=== PATIENT | male | born 1945 | race Caucasian/White ===

== ENCOUNTER 2020-04-08 10:13 | Outpatient (CLI) | payer MEDICARE, OTHER, SELFPAY ==
--- NOTE | 2020-04-08 10:22 | MR_ITS ---
WS: [id number] MRI LUMBAR SPINE NONCONTRAST HISTORY: BACK PAIN LUMBAR with radiculopathy, peripheral NEUROPATHY COMPARISON: None available. TECHNIQUE: Sagittal and axial multisequence imaging is submitted. Mild straightening of the normal lumbar lordosis. Very slight LEFT convex curvature the lumbar spine. Mild disc desiccation without fractures. There is a small amount of reactive marrow edema in the endp lates of L5 and S1 on the LEFT. Conus terminates normally at L1-2 disc level. L1-L2: Mild bilateral facet joint arthritis. Mild deformity of the lateral thecal sac. Mild foraminal stenosis. L2-L3: Mild facet and ligamentum flavum arthritis with mild foraminal narrowing. L3-L4: Annular disc bulging and osteophytic ridging with facet and ligamentum flavum arthritis. Mild central and subarticular recess encroachment. There is also mild bilateral foraminal stenosis. L4-L5: Mild annular disc bulging. Mild ligamentum flavum arthritis and facet arthropathy. There is in crease fluid in the facet joints and mild bilateral foraminal narrowing. L5-S1: Mild annular disc bulging. Osteophytes and bulging disc extending into the LEFT foramen. There is moderate LEFT foraminal stenosis. There is mild encroachment upon the LEFT subarticular recess. Bilateral renal cysts. MR/MR lumbar spine wo con* [id number] IMPRESSION: 1. Moderate LEFT foraminal stenosis due to disc osteophyte disease and mild LE FT subarticular recess stenosis at L5-S1. 2. Mild bilateral foraminal stenosis from L1-2 to L4-5. 3. No significant central stenosis.
== END 2020-04-08 10:14 | disposition home or self-care (01) ==
PROVIDERS: PCP Electrodiagnostic Medicine; Visit Provider Electrodiagnostic Medicine
DX: M54.16 Radiculopathy, lumbar region (principal); G62.9 Polyneuropathy, unspecified; I65.23 Occlusion and stenosis of bilateral carotid arteries; M48.061 Spinal stenosis, lumbar region without neurogenic claudication; M25.78 Osteophyte, vertebrae
CPT/HCPCS: 72148

== ENCOUNTER 2020-07-20 09:25 | Outpatient (RCR) | payer MEDICARE, OTHER, SELFPAY | END 2020-08-03 23:59 | disposition home or self-care (01) | LOC: SPT 09:25 | PROVIDERS: PCP Electrodiagnostic Medicine; Referring Provider Physician Assistant; Visit Provider Physician Assistant | DX: M54.16 Radiculopathy, lumbar region (principal); M51.36 Other intervertebral disc degeneration, lumbar region; M51.26 Other intervertebral disc displacement, lumbar region; M48.061 Spinal stenosis, lumbar region without neurogenic claudication; M47.816 Spondylosis without myelopathy or radiculopathy, lumbar region | CPT/HCPCS: 97110; 97162 ==

== ENCOUNTER 2020-08-04 06:00 | Outpatient (RCR) | payer MEDICARE, OTHER, SELFPAY | END 2020-09-03 23:59 | disposition home or self-care (01) | LOC: SPT 06:00 | PROVIDERS: PCP Electrodiagnostic Medicine; Referring Provider Physician Assistant; Visit Provider Physician Assistant | DX: M54.16 Radiculopathy, lumbar region (principal); M51.36 Other intervertebral disc degeneration, lumbar region; M51.26 Other intervertebral disc displacement, lumbar region; M48.061 Spinal stenosis, lumbar region without neurogenic claudication; M47.816 Spondylosis without myelopathy or radiculopathy, lumbar region | CPT/HCPCS: 97110 ==

== ENCOUNTER 2020-12-06 13:45 | Outpatient (CLI) | payer MEDICARE, OTHER, SELFPAY ==
--- NOTE | 2020-12-06 14:15 | USCV_ITS ---
Chinmay Hernandes Age: 75 Gender: M : 1945 Exam Date: 12/06/2020 13:57 Ordering Phys: Kam Mayfield MD ([email or web address]) Technologist: Yifan Ayoub [place] [facility] [place]: CHEST PAIN BP: 135 / 82 HR: 58 Rhythm: Sinus Technical Quality: Fair MEASUREMENTS (Male / Female) Normal Values 2D ECHO LV Diastolic Diameter PLAX 4.0 cm 4.2 - 5.9 / 3.9 - 5.3 cm LV Systolic Diameter PLAX 2.9 cm IVS Diastolic Thickness 1.8 cm 0.6 - 1.0 / 0.6 - 0.9 cm IVS Systolic Thickness 1.7 cm LVPW Diastolic Thickness 1.4 cm 0.6 - 1.0 / 0.6 - 0.9 cm LVPW Systolic Thickness 2.4 cm LVOT Diameter 2.0 cm LV Ejection Fraction 2D Teich 53.8 % LV Ejection Fraction MOD 2C 70.0 % LV Ejection Fraction 2C AL 74.6 % LA Diameter 3.4 cm LA Width 4.1 cm LA Height 4.2 cm RA Width 3.2 cm RA Height 3.7 cm Aorta at Sinotubular Diameter 2.7 cm M-MODE LV Diastolic Diameter MM 4.0 cm 4.2 - 5.9 / 3.9 - 5.3 cm LV Systolic Diameter MM 2.5 cm LV Ejection Fraction MM Teich 66.5 % IVS Diastolic Thickness MM 1.1 cm 0.6 - 1.0 / 0.6 - 0.9 cm IVS Systolic Thickness MM 1.7 cm LVPW Diastolic Thickness MM 1.4 cm 0.6 - 1.0 / 0.6 - 0.9 cm LVPW Systolic Thickness MM 2.3 cm Aortic Annulus Diameter 3.2 cm LA Ao Ratio MM 1.1 MV E Point Septal Separation 0.5 cm DOPPLER AV Peak Velocity 104.0 cm/s LVOT Peak Velocity 79.0 cm/s AV Area Cont Eq vti 2.3 cm squared AV Area Cont Eq pk 2.5 cm squared MV Area PHT 4.9 cm squared Mitral E to A Ratio 0.6 MV E' Velocity 27.5 cm/s Mitral E to MV E' Ratio 5.9 Mitral E to LV E' Lateral Ratio 7.7 Mitral E to LV E' Septal Ratio 4.9 TR Peak Velocity 188.0 cm/s TR Peak Gradient 14.1 mmHg Right Atrial Pressure 3.0 mmHg Pulmonary Artery Systolic Pressu 17.1 mmHg PV Peak Velocity 77.0 cm/s RV Acceleration Time 0.1 s RV Ejection Time 0.3 s RV AcT/ET 0.3 FINDINGS Left Ventricle Mild diffuse hypokinesia of the lateral wall and inferolateral wall segments. LV ejection fraction around 50 to 55% Right Ventricle The right ventricle is normal in size and function. Right Atrium The right atrium is normal in size. Left Atrium The left atrium is normal in size. Mitral Valve Thickened mitral valve. Trace mitral valve regurgitation. Aortic Valve No gross abnormalities noted Tricuspid Valve Trace tricuspid valve regurgitation. Pulmonic Valve Pulmonic valve not well visualized. Pericardium Normal pericardium without effusion. Aorta Normal ascending aorta dimension. CONCLUSIONS Normal LV size with borderline low ejection fraction of 50 to 55%. Wall motion normalities as mentioned above. Trace of mitral and tricuspid regurgitation. Thickened mitral valve. There is no pericardial effusion. There are no intracardiac masses. Estimated pulmonary artery peak systolic pressure of 17 mmHg. Compared to the previous study from 02/15/2015, the wall motion normality in the inferolateral wall appears to be new Dr Kam Mayfield MD FAC (Electronically Signed) Final Date: 07 December 2020 10:54 S
== END 2020-12-06 13:46 | disposition home or self-care (01) ==
LOC: US 13:45
PROVIDERS: PCP Electrodiagnostic Medicine; Visit Provider Internal Medicine Cardiovascular Disease
DX: R07.89 Other chest pain (principal); R06.00 Dyspnea, unspecified; I08.3 Combined rheumatic disorders of mitral, aortic and tricuspid valves
CPT/HCPCS: 93306

== ENCOUNTER 2020-12-08 07:26 | Outpatient (CLI) | payer MEDICARE, OTHER, SELFPAY ==
[2020-12-08 07:30] VITALS: BMI 25.5
--- NOTE | 2020-12-08 07:30 | NMCV_ITS ---
NM danny perf SPECT r/s* [id number] Chinmay Hernandes Age: 75 Gender: M : 1945 Exam Date: 12/08/2020 08:20 Ordering Phys: Kam Mayfield MD ([email or web address]) Technologist: SEN Duran Exam Location: [facility] Indications: CHEST PAIN STRESS TEST Please see separate stress test report in [facility] for full findings IMAGE PROTOCOL Lexiscan Radiopharmaceutical Dose (mCi) Administration Site Administered by Rest: Tc-99m 10.9 IV SEN Aldana Sestamibi Stress:Tc-99m 32.7 IV SEN Duran Sestamicathryn Rest: 08-Dec-2020 60 Discovery 630 Stress: 08-Dec-2020 30 Discovery 630 0.4mg Lexiscan. Images obtained in supine and prone position. SPECT RESULTS Technical Quality: Excellent Raw Data Analysis: Normal Image Corrections: No attenuation or motion correction applied Summed Stress Score: 3 Summed Rest Score: 6 Summed Difference Score: 1 PERFUSION FINDINGS Moderate area of decreased aseptic was noted in the basal and mid inferoseptal, mid anteroseptal and apical inferior wall regions. Subtle area of reversibility was noted in the mid inferoseptal region. FUNCTIONAL RESULTS (calculated via Gated SPECT) Stress Image LV EF (%): 74 Stress EDV (mL):105 TID: 0.76 Stress ESV (mL):27 FUNCTIONAL FINDINGS: Segmental wall motion analysis revealing no gross wall motion normalities. IMPRESSIONS 1. Myocardial perfusion may revealing a moderate area of persistent decreases uptake in the anteroseptal and inferoseptal regions with a subtle area of reversibility, suggestive of myocardial scarring in the distribution of the left and descending artery/right coronary artery with a subtle area of possible gonzalo-infarction ischemia in the distribution of the right coronary artery. 2. Normal LV ejection fraction of 74%. 3. LV wall motion analysis revealing no gross wall motion normalities. 4. Normal LV volume. No similar previous studies are available for comparison Dr Kam Mayfield MD [facility] (Electronically Signed) Final Date: 08 December 2020 18:01 S
--- NOTE | 2020-12-08 07:30 | ECG_ITS ---
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 Interpretive Statements NAME OF STUDY: LEXISCAN SESTAMIBI STRESS TEST INDICATION: Chest Pain PROCEDURE: At the baseline, the EKG revealed sinus bradycardia with a left bundle branch block pattern. The baseline blood pressure was 133/78 mm Hg with a heart rate of 54 beats/min. Lexiscan was infused over a period of 20 seconds. A total of 0.4 milligrams of Lexiscan was infused. The stress phase was continued for a total of 5 minutes. Heart rate at the end of the stress phase was 66 with a blood pressure 150/72. The EKG at the peak infusion is uninterpretable due to baseline changes Sestamibi was injected 20 seconds after the Lexiscan infusion. Blood pressure at the end of the recovery phase was 146/62 with a heart rate of 63 per minute. CONCLUSION: 1. The EKG response to Lexiscan infusion is uninterpretable due to the baseline changes 2. No LexiScan induced chest pain or cardiac arrhythmia 3. Normal blood pressure and heart rate response 4. Sestamibi/sestamibi perfusion scan pending; see separate report. Electronically Signed On 12-15-2020 9:50:24 [employer] by Kam Mayfield M.D. [id number]
[2020-12-08 09:22] VITALS: BP 138/69; PULSE 65
[2020-12-08] MEDS: regadenoson 0.4 Mg/5 ml Syringe IVP (09:23)
== END 2020-12-08 07:27 | disposition home or self-care (01) ==
PROVIDERS: PCP Electrodiagnostic Medicine; Visit Provider Internal Medicine Cardiovascular Disease
DX: R07.9 Chest pain, unspecified (principal)
CPT/HCPCS: 78452; 93017; A9500; J2785

== ENCOUNTER 2021-11-28 12:55 | Outpatient (CLI) | payer MEDICARE, OTHER, SELFPAY ==
--- NOTE | 2021-11-28 13:09 | XR_ITS ---
WS: [id number] Left hip, 2 views, 11/28/2021 Clinical Data: L CHRONIC HIP PAIN/BURSITIS HIPS, BILATERAL Comparison: None. Findings: No fractures or dislocations are seen. The hip joint is intact. The soft tissues are not remarkable. The adjacent pelvis is normal. XR/XR hip LT 2-3V wo/w pel* [id number] Impression: Negative left hip. Tonnis classification: grade 0: normal radiographs
== END 2021-11-28 12:56 | disposition home or self-care (01) ==
LOC: RAD 12:59
PROVIDERS: PCP Electrodiagnostic Medicine; Visit Provider Electrodiagnostic Medicine
DX: M25.552 Pain in left hip (principal); M71.9 Bursopathy, unspecified
CPT/HCPCS: 73502

== ENCOUNTER → 2022-01-15 09:47 | Outpatient (BNVA) | payer MEDICARE, OTHER, SELFPAY | PROVIDERS: PCP Electrodiagnostic Medicine; Visit Provider Internal Medicine Cardiovascular Disease | DX: R07.89 Other chest pain (principal); E78.5 Hyperlipidemia, unspecified; I44.7 Left bundle-branch block, unspecified; I10 Essential (primary) hypertension; R06.00 Dyspnea, unspecified | CPT/HCPCS: 99214 ==

== ENCOUNTER 2022-01-18 09:38 | Emergency (ER) | payer MEDICARE, OTHER, SELFPAY ==
[2022-01-18 09:54] VITALS: BP 123/65; PULSE 59; RESP 14; TEMP 36.9; O2SAT 98; BMI 26.2
[2022-01-18 11:03] LABS: Add Urine Microscopic? NO; Charge for UA Resulting for Rev
--- NOTE | 2022-01-18 11:03 | CTR_ITS ---
PROCEDURE INFORMATION: Exam: CT Abdomen And Pelvis With Contrast Exam date and time: 01/18/2022 12:08 PM Age: 76 years old Clinical indication: Abdominal pain; Prior surgery; Surgery type: Gb; Additional info: HX of chrohns, abd pain, right flank pain TECHNIQUE: Imaging protocol: Computed tomography of the abdomen and pelvis with contrast. Radiation optimization: All CT scans at this facility use at least one of these dose optimization techniques: automated exposure control; mA and/or kV adjustment per patient size (includes targeted exams where dose is matched to clinical indication); or iterative reconstruction. Contrast material: OMNI 300; Contrast volume: 95 ml; Contrast route: INTRAVENOUS (IV); COMPARISON: CT Abdomen/Pelvis Renal [id number] 01/01/2017 12:33 AM RADIATION DOSE METRICS: Total DLP (mGy-cm): 2354 FINDINGS: Lungs: Interstitial prominence and trace dependent airspace disease. 3mm left lower lobe nodule (series 3: Image 11). For patients at low risk (minimal or absent history of smoking and of other known risk factors), no routine follow-up is indicated. For patients at high risk (history of smoking or of other known risk factors), consider optional CT Chest at 12 months. (Reference: Romeo). Liver: Fatty infiltration of the liver. Gallbladder and bile ducts: Status post cholecystectomy. Intrahepatic biliary ductal dilatation along with common and apparent distal obstruction. MRCP or ERCP can be performed for improved characterization, if clinically indicated. Pancreas: Pancreatic atrophy. Spleen: No splenomegaly. Adrenal glands: Unremarkable adrenals. Kidneys and ureters: Bilateral renal cysts, including a 1.5 cm cyst in the superomedial left kidney. No hydronephrosis. Stomach and bowel: Wall thickening in the nondistended stomach. Diffuse wall thickening of rectum and colon, in a pattern of pancolitis. Appendix: No acute appendicitis. Intraperitoneal space: No significant free fluid. Vasculature: Vascular calcification. No abdominal aortic aneurysm. Lymph nodes: Subcentimeter lymph nodes. Urinary bladder: Bladder dilatation with mildly lobulated morphology. Reproductive: Unremarkable as visualized. Bones/joints: Disc bulging, mild degenerative change, and Schmorl's nodes. Soft tissues: Unremarkable. CT/CT abdomen pelvis w con* [id number] IMPRESSION: 1. Diffuse wall thickening of rectum and colon, in a pattern of pancolitis. 2. Intrahepatic biliary ductal dilatation along with common and apparent distal obstruction. MRCP or ERCP can be performed for improved characterization, if clinically indicated. 3. Wall thickening in the nondistended stomach. 4. Additional findings as described above. COMMENTS: Consistent with the [employer]'s Incidental Findings Committee white paper (J Am Jeffery Radiol 2018): Any incidental renal lesion less than 1 cm or classified as too small to characterize, or any incidental cystic renal lesion characterized as simple-appearing, is likely benign. No follow-up imaging is recommended for these lesions per consensus recommendations based on imaging criteria.
--- NOTE | 2022-01-18 11:03 | ED_ITS ---
HPI - Male Genitourinary General: Chief complaint: Urogenital-Male Stated complaint: Low back pain, pos kidney stone Time Seen by Provider: 01/18/22 09:54 History of Present Illness: Complains about right upper flank pain and pain across his abdomen been going on last couple days. Patient recently treated for UTI. Patient also history of Crohn's disease. Patient not in pain presently patient also history of low back problems and stenosis. Patient also has BPH Associated symptoms: Deny nausea or vomiting Review of Systems Const: Denies: fever(s), chills or body aches Eyes: Denies: eye discomfort ENMT: Denies: throat pain Card: Denies: chest pain Resp: Denies: dyspnea GI: Reports: abdominal pain; Denies: nausea or vomiting : Reports: flank pain Skin/Breast: Denies: rash Neuro: Denies: headache(s) Psych: Denies: depression or suicidal ideation PFSH ED PFSH: Medical History GERD (gastroesophageal reflux disease) Hx of Crohn's disease Osteopenia Vitamin D deficiency Surgical History History of cholecystectomy History of neck surgery Family History Father CAD (coronary artery disease) Dementia Stroke Mother CAD (coronary artery disease) Family/Other Cancer Denies family history of Diabetes Clotting disorder Chronic kidney disease (CKD) Suicide Anesthesia complication Bleeding disorder Lung disease Social History Smoking and tobacco status: never smoked Alcohol intake: never Physical Exam Const: COMMON NORMALS: no acute distress, patient oriented x3 and alert HENMT: COMMON NORMALS: normocephalic and external ears normal HEAD & SCALP: normocephalic EXTERNAL EAR: Yes external ears normal Eye: COMMON NORMALS: EOMs intact bilaterally Neck/C-Spine: COMMON NORMALS: no JVD Resp: COMMON NORMALS: normal respiratory effort and No use of accessory muscles Cardio: COMMON NORMALS: no JVD GI: INSPECTION: Yes normal to inspection Extremity: COMMON NORMALS: normal to inspection and full ROM Neuro: COMMON NORMALS: patient oriented x3 SENSORIUM/ORIENTATION: Yes alert Psych: COMMON NORMALS: mental status grossly normal Skin: COMMON NORMALS: no rashes or lesions noted GENERAL SKIN EXAM: no rashes or lesions noted Course Vital Signs: Vital signs: Vital Signs Temperature 98.5 F 01/18/22 09:54 Pulse Rate 59 L 01/18/22 09:54 Respiratory Rate 14 01/18/22 09:54 Blood Pressure 123/65 01/18/22 09:54 Pulse Oximetry 98 01/18/22 09:54 MDM - Male Medical Decision Making Patient presents with right upper flank pain and mild diffuse abdominal pain that occurred last night patient is pain-free presently. Labs and CT were ordered. Labs are stable CT shows possible pancolitis and also possible blocka ge common bile duct. I discussed case with Dr. Tirado and Dr. Harvey, Dr. Nielsen is recommended patient follow-up outpatient with primary care provider for a possible order an outpatient MRCP. And place patient on antibiotics for pancolitis. Patient has history of Crohn's and I will placed on steroids. Lab Data : 01/18/22 11:03 01/18/22 11:03 Radiology Impressions Abdomen/Pelvis CT 01/18/22 11:03 IMPRESSION: 1. Diffuse wall thickening of rectum and colon, in a pattern of pancolitis. 2. Intrahepatic biliary ductal dilatation along with common and apparent distal obstruction. MRCP or ERCP can be performed for improved characterization, if clinically indicated. 3. Wall thickening in the nondistended stomach. 4. Additional findings as described above. COMMENTS: Consistent with the [employer]'s Incidental Findings Committee white paper (J Am Jeffery Radiol 2018): Any incidental renal lesion less than 1 cm or classified as too small to characterize, or any incidental cystic renal lesion characterized as simple-appearing, is likely benign. No follow-up imaging is recommended for these lesions per consensus recommendations based on imaging criteria. Laboratory Results WBC 6.9 10^3/uL (4.0-10.0) 01/18/22 11:03 RBC 4.48 10^6/uL (4.1-5.3) 01/18/22 11:03 Hgb 13.9 g/dL (11.7-16.6) 01/18/22 11:03 Hct 41.5 % (42.0-52.0) L 01/18/22 11:03 MCV 92.6 fl (80-94) 01/18/22 11:03 MCH 31.0 pg (28.0-34.0) 01/18/22 11:03 MCHC 33.5 g/dL (30.0-36.0) 01/18/22 11:03 RDW 13.1 % (12.1-15.1) 01/18/22 11:03 Plt Count 296 10^3/cmm (130-400) 01/18/22 11:03 MPV 9.5 fL (7.4-10.4) 01/18/22 11:03 Neut % (Auto) 54.4 % 01/18/22 11:03 Lymph % (Auto) 24.9 % 01/18/22 11:03 [place] % (Auto) 13.3 % 01/18/22 11:03 Eos % (Auto) 5.6 % 01/18/22 11:03 Baso % (Auto) 1.2 % 01/18/22 11:03 Neut # (Auto) 3.76 10^3/uL (1.8-7.7) 01/18/22 11:03 Lymph # (Auto) 1.7 10^3/uL (0.8-4.8) 01/18/22 11:03 [place] # (Auto) 0.9 10^3/uL (0.2-0.9) 01/18/22 11:03 Eos # (Auto) 0.4 10^3/uL (0.0-0.8) 01/18/22 11:03 Baso # (Auto) 0.1 10^3/uL (0.0-0.1) 01/18/22 11:03 Nucleated RBC % (auto) 0 % 01/18/22 11:03 Nucleated RBCs # 0.0 /100WBC 01/18/22 11:03 Sodium 137 mmol/L (136-145) 01/18/22 11:03 Potassium 4.0 mmol/L (3.5-5.1) 01/18/22 11:03 Chloride 103 mmol/L (98-107) 01/18/22 11:03 Carbon Dioxide 25 mmol/L (22-29) 01/18/22 11:03 Anion Gap 13.0 (5-19) 01/18/22 11:03 BUN 14 mg/dL (8-23) 01/18/22 11:03 Creatinine 0.9 mg/dL (0.7-1.2) 01/18/22 11:03 GFR Calculation Not Reportable 01/18/22 11:03 Glucose 105 mg/dL (65-115) 01/18/22 11:03 Calculated Osmolality 285 mOsm/kg (285-295) 01/18/22 11:03 Calcium 9.5 mg/dL (8.5-10.5) 01/18/22 11:03 Total Bilirubin 0.4 mg/dL (0.15-1.2) 01/18/22 11:03 AST 26 U/L (0-40) 01/18/22 11:03 ALT 19 U/L (0-41) 01/18/22 11:03 Alkaline Phosphatase 64 IU/L (40-130) 01/18/22 11:03 Total Protein 7.2 g/dL (6.6-8.7) 01/18/22 11:03 Albumin 4.4 g/dL (3.5-5.2) 01/18/22 11:03 Globulin 2.8 g/dL (1.3-4.6) 01/18/22 11:03 Lipase 20 U/L (13-60) 01/18/22 11:03 Urine Color Straw (Yellow) 01/18/22 10:35 Urine Appearance Clear (CLEAR) 01/18/22 10:35 Urine pH 5 (5-7) 01/18/22 10:35 Ur Specific [place] 1.010 (1.005-1.030) 01/18/22 10:35 Urine Protein Neg (Negative) 01/18/22 10:35 Urine Glucose (UA) Norm (Normal) 01/18/22 10:35 Urine Ketones Negative (Negative) 01/18/22 10:35 Urine Blood Neg (Negative) 01/18/22 10:35 Urine Nitrate Negative (Negative) 01/18/22 10:35 Urine Bilirubin Neg (Negative) 01/18/22 10:35 Urine Urobilinogen Norm mg/dL (Negative) 01/18/22 10:35 Ur Leukocyte Esterase Negative (Negative) 01/18/22 10:35 Discharge Plan Discharge Condition: Stable Prescriptions: No Action cholecalciferol (vitamin D3) 1,250 mcg (50,000 unit) capsule 50,000 unit PO .QWeekly 0RF isosorbide mononitrate 30 mg tablet extended release 24 hr 30 mg PO DAILY 30 Days Qty: 30 5RF finasteride 5 mg tablet 5 mg PO DAILY 0RF metoprolol succinate 25 mg tablet extended release 24 hr 25 mg PO DAILY 0RF acetaminophen [Tylenol Arthritis Pain] 650 mg tablet extended release 1,300 mg PO Q12H 0RF omeprazole 20 mg capsule,delayed release(DR/EC) 20 mg PO DAILY 0RF nitroglycerin 0.4 mg tablet, sublingual 0.4 mg sublingual Q5M PRN (Reason: chest pain) 30 Days Qty: 30 3RF Rx Instructions: until response; do not exceed 3 doses per episode Referrals: Vaughn Silva DO [Primary Care Provider] - Coding Level of Care Code ED 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
[2022-01-18 11:15] LABS: Basophils # 0.1 10^3/uL (0.0-0.1); Basophils % 1.2 %; Eosinophils # 0.4 10^3/uL (0.0-0.8); Eosinophils % 5.6 %; Hematocrit 41.5 % (42.0-52.0); Hemoglobin 13.9 g/dL (11.7-16.6); Lymphocytes # 1.7 10^3/uL (0.8-4.8); Lymphocytes % 24.9 %; Mean Corpuscular HGB Conc 33.5 g/dL (30.0-36.0); Mean Corpuscular Volume 92.6 fl (80-94); Mean Platelet Volume 9.5 fL (7.4-10.4); Monocytes # 0.9 10^3/uL (0.2-0.9); Monocytes % 13.3 %; Neutrophils # 3.76 10^3/uL (1.8-7.7); Neutrophils % 54.4 %; Nucleated Red Blood Cells % 0 %; Platelet Count 296 10^3/cmm (130-400); Red Blood Count 4.48 10^6/uL (4.1-5.3); Red Cell Distribution Width 13.1 % (12.1-15.1); White Blood Count 6.9 10^3/uL (4.0-10.0)
[2022-01-18 11:22] LABS: Bilirubin Urine Neg (Negative); Blood Urine Neg (Negative); Glucose Urine UA Norm (Normal); Ketones Urine Negative (Negative); Nitrate Urine Negative (Negative); Protein Urine Neg (Negative); Urine Appearance Clear (CLEAR); Urine Color Straw (Yellow); Urobilinogen Urine Norm (Negative); pH Urine 5 (5-7)
[2022-01-18 11:23] LABS: Leukocyte Esterase Urine Negative (Negative)
[2022-01-18 11:46] LABS: Alanine Aminotransferase 19 U/L (0-41); Albumin Level 4.4 g/dL (3.5-5.2); Alkaline Phosphatase 64 IU/L (40-130); Aspartate Amino Transferase 26 U/L (0-40); Blood Urea Nitrogen 14 mg/dL (8-23); Calcium 9.5 mg/dL (8.5-10.5); Carbon Dioxide 25 mmol/L (22-29); Chloride 103 mmol/L (98-107); Globulin 2.8 g/dL (1.3-4.6); Glucose 105 mg/dL (65-115); Lipase 20 U/L (13-60); Osmolality Calculated 285 mOsm/kg (285-295); Sodium 137 mmol/L (136-145); Total Bilirubin 0.4 mg/dL (0.15-1.2); Total Protein 7.2 g/dL (6.6-8.7)
[2022-01-18] MEDS: iohexol 300 mg/mL 100 mL Btl IV (12:07)
--- NOTE | 2022-01-18 15:13 | PC.NURSE ---
Pt given oral contrast by Rudi from radiology.
[2022-01-18 15:25] VITALS: BP 125/71; PULSE 61; RESP 17; O2SAT 95
== END 2022-01-18 15:10 | disposition home or self-care (01) ==
PROVIDERS: Emergency Provider Nurse Practitioner Family; PCP Electrodiagnostic Medicine
DX: R10.9 Unspecified abdominal pain (principal)
CPT/HCPCS: 74177; 80053; 81003; 83690; 85025; 99282; Q9967

== ENCOUNTER 2022-02-04 14:46 | Emergency (ER) | payer MEDICARE, OTHER, SELFPAY ==
[2022-02-04 14:54] VITALS: BP 149/86; PULSE 61; RESP 22; TEMP 36.6; O2SAT 99; BMI 26.2
--- NOTE | 2022-02-04 15:01 | XRR_ITS ---
PROCEDURE INFORMATION: Exam: XR Chest Exam date and time: 02/04/2022 3:44 PM Age: 76 years old Clinical indication: Pain; Chest pressure; Additional info: Chest pain TECHNIQUE: Imaging protocol: XR of the chest. Views: 1 view. COMPARISON: CR Chest 2 views* [id number] 01/27/2019 10:20 AM FINDINGS: Lungs: Unremarkable. No consolidation. Pleural spaces: Unremarkable. No pleural effusion. No pneumothorax. Heart/Mediastinum: Unremarkable. No cardiomegaly. Bones/joints: Unremarkable. XR/XR chest 1V portable [id number] IMPRESSION: No acute findings.
--- NOTE | 2022-02-04 15:04 | PC.NURSE ---
PT PLACED ON CONTINUOUS SPO2, NIBP, AND CM.
--- NOTE | 2022-02-04 15:15 | W.ED.CHESTPA ---
HPI - Chest Pain General: Chief Complaint: Chest Pain Stated Complaint: cp Time Seen by Provider: 02/04/22 14:58 Source: patient Mode of arrival: ambulatory Limitations: no limitations History of Present Illness: 76-year-old male presents emergency room complaining of left-sided chest pain radiating to his left shoulder. He has been having this for some time now he has noticed that he will get it with exertion and relieved by rest usually at takes hour or more for it to go away. Reports getting about one episode a week he does not really think the intensity has increased. He seen Dr. Chaparro [place] and had a stress test the trest stress test by his description was relatively equivocal they opted for medical management started on him on isosorbide he had not started it until today he states after he took it he had a headache. Has not taken any sublingual nitro with this. According to his medicine list has not been taking aspirin on a regular basis. Pain-free at this time. MD complaint: chest pain Pertinent past history: coronary artery disease (Prior positive cardiac stress test 12/08/2020) Onset (ago): hour(s) Timing of current episode: episodic Prior episodes: Yes Onset: during rest and during exertion Pain location: left chest Pain radiation: left shoulder Quality: aching and heaviness Relieving factors: nitroglycerin Exacerbating factors: nothing Associated symptoms: Deny abdominal pain, diaphoresis, dyspnea, fever(s), leg edema, nausea, palpitations, sense of impending doom, syncope or vomiting Treatment prior to arrival: nitroglycerin Review of Systems Const: Denies: fever(s) or diaphoresis ENMT: Denies: throat pain, ear or mastoid pain, nasal discharge or nasal congestion Card: Denies: palpitations or syncope Resp: Denies: dyspnea GI: Denies: abdominal pain, nausea or vomiting : Denies: flank pain, dysuria, urinary frequency or urinary urgency Skin/Breast: Denies: rash or pruritus PFSH ED PFSH: Medical History GERD (gastroesophageal reflux disease) Hx of Crohn's disease Osteopenia Vitamin D deficiency Surgical History History of cholecystectomy History of neck surgery Family History Father CAD (coronary artery disease) Dementia Stroke Mother CAD (coronary artery disease) Family/Other Cancer Denies family history of Diabetes Clotting disorder Chronic kidney disease (CKD) Suicide Anesthesia complication Bleeding disorder Lung disease Social History Smoking and tobacco status: never smoked Alcohol intake: never Physical Exam Const: GENERAL APPEARANCE: cooperative and comfortable ORIENTATION/CONSCIOUSNESS: Yes awake, Yes oriented to person, Yes oriented to place and Yes oriented to time HENMT: COMMON NORMALS: normocephalic, atraumatic and hearing grossly normal bilaterally HEAD & SCALP: normocephalic and atraumatic Neck/C-Spine: COMMON NORMALS: no JVD Resp: COMMON NORMALS: normal respiratory effort, No retractions, No use of accessory muscles and clear to auscultation bilaterally AUSCULTATION: clear to auscultation bilaterally Cardio: COMMON NORMALS: no JVD, regular rate, regular rhythm and No murmurs present (Cardio) RATE: regular rate RHYTHM: regular rhythm GI: COMMON NORMALS: Soft to palpation and No hepatosplenomegaly present AUSCULTATION: Yes normoactive bowel sounds PALPATION: Yes Soft to palpation, No Tenderness to palpation present (GI), No Guarding due to palpation present (GI) and Yes No hepatosplenomegaly present Extremity: COMMON NORMALS: normal to inspection, capillary refill normal, no clubbing, cyanosis or edema, no calf tenderness and no pedal edema Neuro: SENSORIUM/ORIENTATION: Yes oriented to person, Yes oriented to place and Yes oriented to time Skin: COMMON NORMALS: no rashes or lesions noted GENERAL SKIN EXAM: no rashes or lesions noted Course Vital Signs: Vital signs: Vital Signs Temperature 97.9 F 02/04/22 14:54 Pulse Rate 59 L 02/04/22 17:45 Respiratory Rate 18 02/04/22 17:45 Blood Pressure 133/65 02/04/22 17:45 Pulse Oximetry 95 02/04/22 17:45 MDM - Chest Pain Medical Decision Making Discussed with cardiology. Patient is having rather frequent angina. He said to stress test her last several years both of which have not been definitive he they have elected to treat medically up to this point unfortunately patient not been regularly taking aspirin or regular taking his isosorbide mononitrate. Cardiology on-call recommends that in the patient like this they should start the aspirin regularly take the isosorbide mononitrate regularly use the sublingual nitro for rescue therapy if patient has chest pain beyond taking the isosorbide mononitrate. Call Dr. Mayfield's office tomorrow to be set up for an outpatient heart catheterization. If has any worsening or change symptoms return. I reviewed all this with the patient he is agreeable to this he prefers this as opposed to being placed in observation having a heart cath tomorrow. Medical Records I reviewed the patient's medical records. Lab Data I reviewed the patient's lab results. : 02/04/22 15:16 02/04/22 15:16 Radiology Impressions Chest X-Ray 02/04/22 15:01 IMPRESSION: No acute findings. Laboratory Results WBC 7.7 10^3/uL (4.0-10.0) 02/04/22 15:16 RBC 4.36 10^6/uL (4.1-5.3) 02/04/22 15:16 Hgb 13.3 g/dL (11.7-16.6) 02/04/22 15:16 Hct 41.3 % (42.0-52.0) L 02/04/22 15:16 MCV 94.7 fl (80-94) H 02/04/22 15:16 MCH 30.5 pg (28.0-34.0) 02/04/22 15:16 MCHC 32.2 g/dL (30.0-36.0) 02/04/22 15:16 RDW 13.3 % (12.1-15.1) 02/04/22 15:16 Plt Count 295 10^3/cmm (130-400) 02/04/22 15:16 MPV 10.1 fL (7.4-10.4) 02/04/22 15:16 Neut % (Auto) 56.1 % 02/04/22 15:16 Lymph % (Auto) 26.8 % 02/04/22 15:16 [place] % (Auto) 9.1 % 02/04/22 15:16 Eos % (Auto) 6.2 % 02/04/22 15:16 Baso % (Auto) 1.2 % 02/04/22 15:16 Neut # (Auto) 4.34 10^3/uL (1.8-7.7) 02/04/22 15:16 Lymph # (Auto) 2.1 10^3/uL (0.8-4.8) 02/04/22 15:16 [place] # (Auto) 0.7 10^3/uL (0.2-0.9) 02/04/22 15:16 Eos # (Auto) 0.5 10^3/uL (0.0-0.8) 02/04/22 15:16 Baso # (Auto) 0.1 10^3/uL (0.0-0.1) 02/04/22 15:16 Nucleated RBC % (auto) 0 % 02/04/22 15:16 Nucleated RBCs # 0.0 /100WBC 02/04/22 15:16 Sodium 138 mmol/L (136-145) 02/04/22 15:16 Potassium 4.2 mmol/L (3.5-5.1) 02/04/22 15:16 Chloride 104 mmol/L (98-107) 02/04/22 15:16 Carbon Dioxide 24 mmol/L (22-29) 02/04/22 15:16 Anion Gap 14.2 (5-19) 02/04/22 15:16 BUN 15 mg/dL (8-23) 02/04/22 15:16 Creatinine 1.0 mg/dL (0.7-1.2) 02/04/22 15:16 GFR Calculation Not Reportable 02/04/22 15:16 Glucose 126 mg/dL (65-115) H 02/04/22 15:16 Calculated Osmolality 288 mOsm/kg (285-295) 02/04/22 15:16 Calcium 9.7 mg/dL (8.5-10.5) 02/04/22 15:16 Total Bilirubin 0.5 mg/dL (0.15-1.2) 02/04/22 15:16 AST 24 U/L (0-40) 02/04/22 15:16 ALT 18 U/L (0-41) 02/04/22 15:16 Alkaline Phosphatase 60 IU/L (40-130) 02/04/22 15:16 Troponin T Baseline 9 ng/L (0-15) 02/04/22 15:16 Troponin T 120 Minute 9.62 ng/L (0-15) 02/04/22 17:00 Delta Troponin T Not Reportable 02/04/22 17:00 Total Protein 6.9 g/dL (6.6-8.7) 02/04/22 15:16 Albumin 4.3 g/dL (3.5-5.2) 02/04/22 15:16 Globulin 2.6 g/dL (1.3-4.6) 02/04/22 15:16 Discharge Plan Discharge Patient Disposition: Home Clinical Impression: Stable angina, LBBB (left bundle branch block), Benign essential HTN, Dyslipidemia Condition: Stable Prescriptions: New aspirin 81 mg tablet,delayed release (DR/EC) 81 mg PO DAILY Qty: 30 0RF No Action cholecalciferol (vitamin D3) 1,250 mcg (50,000 unit) capsule 50,000 unit PO Q7D 0RF Rx Instructions: on Wednesdays isosorbide mononitrate 30 mg tablet extended release 24 hr 30 mg PO DAILY 30 Days Qty: 30 5RF finasteride 5 mg tablet 5 mg PO DAILY 0RF metoprolol succinate 25 mg tablet extended release 24 hr 25 mg PO DAILY 0RF acetaminophen [Tylenol Arthritis Pain] 650 mg tablet extended release 1,300 mg PO Q12H PRN (Reason: Pain) 0RF omeprazole 20 mg capsule,delayed release(DR/EC) 20 mg PO DAILY 0RF nitroglycerin 0.4 mg tablet, sublingual 0.4 mg sublingual Q5M PRN (Reason: chest pain) 30 Days Qty: 30 3RF Rx Instructions: until response; do not exceed 3 doses per episode rosuvastatin 10 mg tablet 10 mg PO DAILY 0RF Discharge Orders: Discharge ED (Routine); Ordered 02/04/22 Ordered By: William Donald Referrals: Vaughn Silva DO [Primary Care Provider] - Discharge Diet: Usual diet Discharge Activity: Limit activity as instructed Patient Instructions: Opioid Safety Activity Restrictions/Additional Instructions: No exertional activity. Call cardiology clinic tomorrow to schedule furhter testing. Start EC aspitrin 81 mg daily. Take isosorbide mononitrate daily. Use the sublingual nitro as needed for episodes of chest pain. Coding Level of Care Code ED Investment Recovery Technician for Chg Fwd Exam Comprehensive
[2022-02-04 15:31] LABS: Basophils # 0.1 10^3/uL (0.0-0.1); Basophils % 1.2 %; Eosinophils # 0.5 10^3/uL (0.0-0.8); Eosinophils % 6.2 %; Hematocrit 41.3 % (42.0-52.0); Hemoglobin 13.3 g/dL (11.7-16.6); Lymphocytes # 2.1 10^3/uL (0.8-4.8); Lymphocytes % 26.8 %; Mean Corpuscular HGB Conc 32.2 g/dL (30.0-36.0); Mean Corpuscular Hemoglobin 30.5 pg (28.0-34.0); Mean Corpuscular Volume 94.7 fl (80-94); Mean Platelet Volume 10.1 fL (7.4-10.4); Monocytes # 0.7 10^3/uL (0.2-0.9); Monocytes % 9.1 %; Neutrophils # 4.34 10^3/uL (1.8-7.7); Neutrophils % 56.1 %; Nucleated Red Blood Cells % 0 %; Platelet Count 295 10^3/cmm (130-400); Red Blood Count 4.36 10^6/uL (4.1-5.3); Red Cell Distribution Width 13.3 % (12.1-15.1); White Blood Count 7.7 10^3/uL (4.0-10.0)
[2022-02-04] MEDS: aspirin 81 mg Chew Tablet 324 MG PO (15:43)
[2022-02-04 15:51] LABS: Troponin(5th) Baseline 9 ng/L (0-15)
[2022-02-04 16:00] VITALS: PULSE 58; RESP 21; O2SAT 98
[2022-02-04 16:00] LABS: Alanine Aminotransferase 18 U/L (0-41); Albumin Level 4.3 g/dL (3.5-5.2); Alkaline Phosphatase 60 IU/L (40-130); Anion Gap 14.2 (5-19); Aspartate Amino Transferase 24 U/L (0-40); Blood Urea Nitrogen 15 mg/dL (8-23); Calcium 9.7 mg/dL (8.5-10.5); Carbon Dioxide 24 mmol/L (22-29); Chloride 104 mmol/L (98-107); Globulin 2.6 g/dL (1.3-4.6); Glucose 126 mg/dL (65-115); Osmolality Calculated 288 mOsm/kg (285-295); Potassium 4.2 mmol/L (3.5-5.1); Sodium 138 mmol/L (136-145); Total Bilirubin 0.5 mg/dL (0.15-1.2); Total Protein 6.9 g/dL (6.6-8.7)
[2022-02-04 17:00] VITALS: BP 139/66; PULSE 65; RESP 18; O2SAT 97
--- NOTE | 2022-02-04 17:01 | ECG_ITS ---
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 Measurements Intervals [place] Rate: 57 P: 52 WA: 205 QRS: 33 QRSD: 145 T: 71 QT: 441 QTc: 431 Interpretive Statements SINUS BRADYCARDIA LEFT BUNDLE BRANCH BLOCK [120+ ms QRS DURATION, 80+ ms Q/S IN V1/V2, 85+ ms R IN I/aVL/V5/V6] Compared to ECG 04/22/2017 15:42:04 Left bundle-branch block now present Sinus rhythm no longer present Electronically Signed On 02-06-2022 9:21:32 CDT by Geronimo Butt M.D. [id number]
[2022-02-04 17:30] LABS: Troponin 5 2HR 9.62 ng/L (0-15)
[2022-02-04 17:45] VITALS: BP 133/65; PULSE 59; RESP 18; O2SAT 95
== END 2022-02-04 18:09 | disposition home or self-care (01) ==
PROVIDERS: Emergency Provider Family Medicine; PCP Electrodiagnostic Medicine
DX: I20.8 Other forms of angina pectoris (principal); I10 Essential (primary) hypertension; I44.7 Left bundle-branch block, unspecified; E78.5 Hyperlipidemia, unspecified; Z82.49 Family history of ischemic heart disease and other diseases of the circulatory system
CPT/HCPCS: 36415; 71045; 80053; 84484; 85025; 93005; 99283

== ENCOUNTER 2022-02-14 06:01 | Outpatient (CLI) | payer MEDICARE, OTHER, SELFPAY ==
[2022-02-12 10:10] LABS: Basophils # 0.1 10^3/uL (0.0-0.1); Basophils % 1.4 %; Eosinophils # 0.5 10^3/uL (0.0-0.8); Eosinophils % 9.1 %; Hemoglobin 13.9 g/dL (11.7-16.6); Lymphocytes # 1.6 10^3/uL (0.8-4.8); Lymphocytes % 28.4 %; Mean Corpuscular HGB Conc 32.3 g/dL (30.0-36.0); Mean Corpuscular Hemoglobin 31.2 pg (28.0-34.0); Mean Corpuscular Volume 96.6 fl (80-94); Mean Platelet Volume 9.3 fL (7.4-10.4); Monocytes # 0.6 10^3/uL (0.2-0.9); Monocytes % 11.2 %; Neutrophils # 2.82 10^3/uL (1.8-7.7); Neutrophils % 49.4 %; Nucleated Red Blood Cells % 0 %; Platelet Count 313 10^3/cmm (130-400); Red Blood Count 4.45 10^6/uL (4.1-5.3); Red Cell Distribution Width 13.1 % (12.1-15.1); White Blood Count 5.7 10^3/uL (4.0-10.0)
[2022-02-12 10:38] LABS: Blood Urea Nitrogen 15 mg/dL (8-23); Calcium 9.4 mg/dL (8.5-10.5); Carbon Dioxide 27 mmol/L (22-29); Chloride 103 mmol/L (98-107); Glucose 106 mg/dL (65-115); Osmolality Calculated 287 mOsm/kg (285-295); Sodium 138 mmol/L (136-145)
[2022-02-12 10:51] LABS: INR 0.97 (0.83-1.21); Prothrombin Time (Patient) 13.2 Seconds (12.0-15.1)
[2022-02-12 10:52] LABS: Anion Gap 11.8 (5-19); Potassium 3.8 mmol/L (3.5-5.1)
[2022-02-14] VITALS (15 sets, daily range): BP systolic 108–153; BP diastolic 56–81; PULSE 48–61; RESP 12–19; TEMP 36.2–36.8; O2SAT 50–99; BMI 36.3
--- NOTE | 2022-02-14 06:00 | XACV_ITS ---
Exam Room: [facility] Ht: 193 cm Wt: 96 kg BSA: 2.28 m2 Gender: Male : 1945 Any Known Allergies: Other Exam Priority: Routine Procedure(s): Procedure Description: Diagnostic procedure Procedure Description: Left Heart Catheterization Chaparro [place]; Diagnostic Cath Status: Elective Diagnostic Findings * Left main is a medium caliber vessel with no significant stenotic lesions. * The left anterior descending artery is a medium caliber vessel which appears to wrap around the LV apex minimally. Mild diffuse disease is noted in the proximal and mid segment of the artery. No significant stenotic lesions.. * The left circumflex artery is a medium caliber vessel which also appears to no significant stenotic lesions. * Right coronary artery is a medium to large caliber dominant vessel with no significant stenotic lesions. Conclusions 1. 76-year-old white male with multiple risk factors for coronary artery disease, presents with complaints of chest pain, abnormal EKG, echocardiogram. In view of the patient still worsening symptoms, in order to further evaluate his coronary status, a cardiac catheterization was recommended. Patient underwent left heart catheterization with left and right coronary angiogram and LV angiogram today. The findings are as follows. 2. Mild disease in the left artery descending artery. Elevated LVEDP of 19 mmHg. LV ejection fraction of 50%. Diagnostic RX Recommendation: medical therapy and/or counseling LV EDP: 19 mmHg Ventriculography Ejection Fraction: 50.0 % Left Ventriculography Findings: * The LV gram was performed in the HILL projection. There is mild diffuse hypokinesia of the anteroapical region. No filling defects were noted. No significant mitral valve prolapse or mitral regurgitation. Pressures Phase:Rest AO : 126 / 64 ( 89 ) @ 8:43:00 AM 126 / 64 ( 89 ) @ 8:43:00 AM LV : 127 / -4 / 19 @ 8:41:00 AM 125 / 5 / 22 @ 8:42:00 AM 125 / 5 / 21 @ 8:43:00 AM Valves Phase:DefaultPhase AV : 0.0 @ 7:54:21 AM AV Mean Gradient: 0.0 @ 7:54:21 AM Clinical Evaluation EBL: 5mL-10mL Procedural Details Procedure Consent Obtained. Admit Source: Out Patient. Heydi Linares, RT(R) was relieved by Lady Thomas RN as monitoring person. Pre-Procedure Time Out. Identified patient by full name and date of as verbalized by the patient/guarantor. Does the consent match the physician's order: Yes. Accurate & Complete Informed Consent: Yes. Inpatient/Outpatient History & Physical on Chart: Yes. If H&P is completed, is and addenduem needed: No; If yes, is the addendum complete: N/A. Visualize and Verify Site with Patient/Guarantor: N/A. Relevant Radiology Images available: N/A. The risks, benefits, and alternatives of sedation and/or procedure were discussed by physician. The patient agrees to continue. Procedure started. [facility] Clinical Fraility Score: 3: Managing Well. Interim Controller Indications: Worsening Angina. Chest Pain Symptom Assessment: Atypical Angina Symptoms. Correct patient, site and procedure confirmed by cath team. Current diagnosis: Chest Pain. PERRLA. Strong, equal hand mastic floor layer bilaterally. Lungs clear x 5 lobes. IV Site on Arrival: 20 gauge in the right anticubital. IV Fluids: 0.9% NaCl at KVO. 0 mL infused prior to laborer golf course. Pre Procedural Pulses: bilateral radial was 3+. Pre Procedural Pulses: bilateral dorsalis pedis was 3+. Pre Procedural Pulses: bilateral posterior tibial was 3+. Oxygen started at 2liters/min via nasal canula. right radial was prepped with chloroprep then draped in the usual sterile fashion. right groin was prepped with chloroprep then draped in the usual sterile fashion. Physician notified. Baseline sample Acquired. HR: 45 BPM. Physician arrived. Kassi Paniagua RN Circulating with Greg Escamilla RN ROLL TRUCKER. Physician scrubbed in. Immediate Pre-Procedure Time Out. Correct Patient: Yes; Correct Procedure: Yes; Correct Site: Yes; Correct Patient Position: Yes; Correct Supplies: Yes; Dried Flammable Prep: Yes; Blood Products Available: No;. Lidocaine 1% infiltrated to the right radial. Arterial access obtained. A 5 irish Prosper catheter in over wire. Multiple views taken of left coronary artery. Catheter redirected to the RCA. Catheter removed over the standard wire. A 5 irish JR4 catheter in over wire. Multiple views taken of right coronary artery. Catheter removed over the standard wire. A 5 irish Angled Pig catheter in over wire. EDP Sample taken: LV 127/-5,19; HR: 60 BPM; SpO2: 96%. LV gram performed in HILL @ 10 mL/second for a total of 30 mL. LV EDP: 19. EDP Sample taken: LV 125/5,22; HR: 40 BPM; SpO2: 96%. Pullback taken: LV 125/5,21; AO 126/64(89); Mean: 0mmHg, Peak to Peak: 0mmHg, SEP: 15sec/min; HR: 53 BPM; SpO2: 96%. Catheter removed over the standard wire. Wire out. A TR Band was successful obtaining hemostatsis at the Right Radial artery insertion site. Medication's Wasted: Heparin = 1000 unit. Medication's Wasted: Nitro = 49.8 mg. Medication's Wasted: Other = Versed 1 mg. Medication's Wasted: Other = Fentanyl 50mcg. Total IV fluids: 286 mL. Post Procedure: Pulses reassessed and unchanged. PERRLA. Strong, equal hand mastic floor layer bilaterally. No VTE prophylaxis required. Complications: None. Estimated blood loss: 5mL-10mL. Post-op diagnosis: Mild CAD. Responsiveness - Normal response to verbal stimuli; alert and oriented, PERRLA. Airway - Unaffected, no intervention required; spontaneous ventilation. Circulation: W/N/L, pulses unchanged. Nausea/Vomiting: No. Procedure completed. Patient transferred by wheelchair to ICU. Access Site Site: Right Radial artery Sheath Size: 6 Fr Hemostasis Method: TR Band Hemostasis Success: Successful Procedure Medications Start: 7:21 AM Stop: 7:21 AM Medication: Versed Amount: 1 mg Route: I.V. Start: 7:22 AM Stop: 7:22 AM Medication: Fentanyl Amount: 50 mcg Route: I.V. Start: 7:30 AM Stop: 7:30 AM Medication: Nitrogylcerin Amount: 200 mcg Route: I.A. Start: 7:30 AM Stop: 7:30 AM Medication: Verapamil Amount: 5 mg Route: I.A. Start: 7:30 AM Stop: 7:30 AM Medication: 0.9% Saline Amount: 250 ml Route: I.V. bolus Start: 7:32 AM Stop: 7:32 AM Medication: Heparin Amount: 5000 units Route: I.V. I, the attending physician, have reviewed and verified all procedure medications. Yes, all medications given per verbal order History/Risk Factors Hypertension: Yes Dyslipidemia: Yes Peripheral Arterial Disease (PAD): No Myocardial Infarction (RI): No Obesity: No Renal Disease: No Prior Interventions PCI: No CABG: No Valve Surgery: No Report Signatures Finalized by Dr Kam Mayfield MD [facility] on 02/14/2022 10:38 AM
[2022-02-14] MEDS: diphenhydrAMINE 50 mg Capsule PO (06:15)
--- NOTE | 2022-02-14 07:18 | W.PM.OPSUD ---
Surgery/Procedure H&P Update DATE OF PROCEDURE: February 14, 2022 DATE H&P PERFORMED: 01/15/22 H&P UPDATE INFORMATION: I have reviewed H&P completed within last 30 days, I have examined patient prior to procedure and No changes to prior documentation PRIMARY INDICATION FOR PROCEDURE: chest pain, abnormal MPI/ Echocardiogram PLANNED PROCEDURE: Operation Date: 02/14/22 07:00 Proposed Procedures p Cardiac Catheterization(Left) - Kam Mayfield MD PATIENT REASSESSED PRIOR TO SEDATION, WITH NO CHANGE NOTED: Yes PHYSICAL EXAM: alert, oriented x 3, clear to auscultation bilaterally and regular rate & rhythm AIRWAY EVAL/ANESTHESIA PLAN: normal airway, see other exam findings, ASA III, Monitored Anesthesia, Local Anesthesia, Risks, benefits & alternatives of sedation and/or procedure discussed and Patient agrees to continue as planned
[2022-02-14] MEDS: metoprolol succinate ER (24 HR) 25 mg Tablet PO (11:42)
[2022-02-14] MEDS: aspirin 81 mg EC Tablet PO (11:42)
[2022-02-14] MEDS: finasteride 5 mg Tablet PO (11:42)
[2022-02-14] MEDS: atorvastatin 40 mg Tablet PO (11:42)
[2022-02-14] MEDS: pantoprazole DR 40 mg Tablet PO (11:48)
--- NOTE | 2022-02-14 12:00 | PC.NURSE ---
TR Band removed per order. Site unremarkable. Denies pain.
--- NOTE | 2022-02-14 17:15 | PC.NURSE ---
Pt walked out to private vehicle. Denies pain or needs. Discharge instruction given to pt and . Both deny questions. Pt's right radial cath site intact and dry. No hematoma present. No pain voiced. Weight and activity restrictions educated. VSS
== END 2022-02-14 17:15 | disposition home or self-care (01) ==
LOC: CCL 06:05 → ICU 07:44
PROVIDERS: PCP Electrodiagnostic Medicine; Visit Provider Internal Medicine Cardiovascular Disease
DX: I25.10 Atherosclerotic heart disease of native coronary artery without angina pectoris (principal); R07.89 Other chest pain; R94.31 Abnormal electrocardiogram [ECG] [EKG]; I10 Essential (primary) hypertension; E78.5 Hyperlipidemia, unspecified; K21.9 Gastro-esophageal reflux disease without esophagitis; M85.80 Other specified disorders of bone density and structure, unspecified site; E55.9 Vitamin D deficiency, unspecified; I44.7 Left bundle-branch block, unspecified
CPT/HCPCS: 36415; 80048; 85025; 85610; 86850; 86900; 93452; 93458; C1769; C1887; C1894; J1644; J2250; J3010; J3490; Q0163; Q9967

== ENCOUNTER → 2022-02-21 09:56 | Outpatient (BNVA) | payer MEDICARE, OTHER, SELFPAY | PROVIDERS: PCP Electrodiagnostic Medicine; Visit Provider Nurse Practitioner Family | DX: R07.89 Other chest pain (principal) | CPT/HCPCS: 36415; 80048; 99213; 99214 ==

== ENCOUNTER → 2022-03-19 10:07 | Outpatient (BNVA) | payer MEDICARE, OTHER, SELFPAY | PROVIDERS: PCP Electrodiagnostic Medicine; Visit Provider Internal Medicine Cardiovascular Disease | DX: I44.7 Left bundle-branch block, unspecified (principal); E78.5 Hyperlipidemia, unspecified; I10 Essential (primary) hypertension; I25.10 Atherosclerotic heart disease of native coronary artery without angina pectoris | CPT/HCPCS: 99214 ==

== ENCOUNTER → 2022-09-24 09:49 | Outpatient (BNVA) | payer MEDICARE, OTHER, SELFPAY | PROVIDERS: PCP Electrodiagnostic Medicine; Visit Provider Internal Medicine Cardiovascular Disease | DX: I25.10 Atherosclerotic heart disease of native coronary artery without angina pectoris (principal); I44.7 Left bundle-branch block, unspecified; E78.5 Hyperlipidemia, unspecified; I10 Essential (primary) hypertension | CPT/HCPCS: 99213 ==

== ENCOUNTER → 2024-01-17 08:51 | Outpatient (BNVA) | payer MEDICARE, OTHER, SELFPAY | PROVIDERS: PCP Electrodiagnostic Medicine; Visit Provider Podiatrist Foot & Ankle Surgery | DX: M72.2 Plantar fascial fibromatosis; M24.571 Contracture, right ankle | CPT/HCPCS: 20550; 73630; 99203; J1100; J3301 ==

== ENCOUNTER → 2024-02-07 08:15 | Outpatient (BNVA) | payer MEDICARE, OTHER, SELFPAY | PROVIDERS: PCP Electrodiagnostic Medicine; Visit Provider Podiatrist Foot & Ankle Surgery | DX: M72.2 Plantar fascial fibromatosis (principal); M24.571 Contracture, right ankle | CPT/HCPCS: 99213 ==

== ENCOUNTER 2024-06-18 22:17 | Emergency (ER) | payer OTHER, MEDICARE, SELFPAY ==
[2024-06-18 22:22] VITALS: BP 163/78; PULSE 68; RESP 16; TEMP 36.4; O2SAT 96; BMI 15.9
[2024-06-18 22:28] VITALS: BP 110/84; PULSE 59; O2SAT 96
--- NOTE | 2024-06-18 23:17 | ECG_ITS ---
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 Measurements Intervals [place] Rate: 51 P: 34 VA: 227 QRS: -29 QRSD: 161 T: 95 QT: 452 QTc: 420 Interpretive Statements SINUS BRADYCARDIA WITH FIRST DEGREE AV BLOCK WITH OCCASIONAL VENTRICULAR PREMATURE COMPLEXES LEFT BUNDLE BRANCH BLOCK [120+ ms QRS DURATION, 80+ ms Q/S IN V1/V2, 85+ ms R IN I/aVL/V5/V6] Compared to ECG 02/04/2022 14:58:04 Ventricular premature complex(es) now present First degree AV block now present Electronically Signed On 06-19-2024 7:51:36 CDT by Jaylen Shafer M.D. [id number]
[2024-06-18 23:28] VITALS: BP 115/72; PULSE 53; O2SAT 93
--- NOTE | 2024-06-18 23:35 | ED_ITS ---
HPI - General Adult 2 General: Chief complaint: General Medical Stated complaint: Uneven BP Time Seen by Provider: 06/18/24 23:01 History of Present Illness: 78-year-old man with history of hyperten vincent and hyperlipidemia who presents to the emergency room with concern for his blood pressure. He says he has a heart branch block and so his doctor changed him from metoprolol to lisinopril recently. This caused his legs to be very weak he thought and so he changed back to metoprolol. He says today his blood pressure was high as 175 systolic and he had a headache and some pressure in his head. No focal motor deficits. He had some mild chest pain which he says he has regularly and his doctors told him he has some angina but he does not have coronary artery disease. No nausea or vomiting. No fevers. Related Data Home Medications Medication Instructions Recorded Confirmed acetaminophen 650 mg 1,300 mg PO Q12H PRN Pain 11/22/20 02/07/24 tablet,extended release (Tylenol Arthritis Pain) finasteride 5 mg tablet 5 mg PO DAILY 11/22/20 02/07/24 metoprolol succinate 25 mg 25 mg PO DAILY 11/22/20 02/07/24 tablet,extended release 24 hr omeprazole 20 mg capsule,delayed 20 mg PO DAILY 11/22/20 02/07/24 release cholecalciferol (vitamin D3) 1,250 50,000 unit PO Q7D 01/15/22 02/07/24 mcg (50,000 unit) capsule rosuvastatin 10 mg tablet 10 mg PO DAILY 02/04/22 02/07/24 Previous Rx's Medication Instructions Recorded nitroglycerin 0.4 mg sublingual 0.4 mg sublingual Q5M PRN chest 11/22/20 tablet pain 30 days #30 tabs Allergies Allergy/AdvReac Type Severity Reaction Status Date / Time azathioprine [From Imuran] Allergy pancreatiti Verified 02/07/24 08:17 s metronidazole [From Flagyl] Allergy Unknown Verified 02/07/24 08:17 isosorbide AdvReac Severe headache Verified 02/07/24 08:17 Review of Systems 2 Narrative: Constitutional symptoms: Negative except as documented in HPI. Skin symptoms: Negative except as documented in HPI. Eye symptoms: Negative except as documented in HPI. ENMT symptoms: Negative except as documented in HPI. Respiratory symptoms: Negative except as documented in HPI. Cardiovascular symptoms: Negative except as documented in HPI. Gastrointestinal symptoms: Negative except as documented in HPI. Genitourinary symptoms: Negative except as documented in HPI. Musculoskeletal symptoms: Negative except as documented in HPI. Neurologic symptoms: Negative except as documented in HPI. Psychiatric symptoms: Negative except as documented in HPI. Endocrine symptoms: Negative except as documented in HPI. PFSH ED 2 PFSH: Medical History Vitamin D deficiency Hx of Crohn's disease Osteopenia GERD (gastroesophageal reflux disease) Surgical History History of cholecystectomy History of neck surgery Family History Father CAD (coronary artery disease) Dementia Stroke Mother CAD (coronary artery disease) Family/Other Cancer Denies family history of Diabetes Clotting disorder Chronic kidney disease (CKD) Suicide Anesthesia complication Bleeding disorder Lung disease Social History Smoking and tobacco/nicotine status: never used tobacco/nicotine Alcohol intake: never Substance/Drug Use: never Physical Exam 2 Narrative: EXAM NARRATIVE: General: Alert, no acute distress. Skin: Warm, dry. Head: Normocephalic, atraumatic. Neck: Supple, trachea midline. Eye: Extraocular movements are intact. Ears, nose, mouth and throat: mucosa moist. Cardiovascular: Regular, Normal peripheral perfusion. Respiratory: Lungs are clear to auscultation, respirations are non-labored, breath sounds are equal, Symmetrical chest wall expansion. Gastrointestinal: Soft, Nontender, Non distended Musculoskeletal: Normal ROM, no deformity. Neurological: Alert and oriented, No focal neurological deficit observed. Psychiatric: Cooperative, appropriate mood & affect. Course 2 Vital Signs: Vital signs: Vital Signs Temperature 97.6 F 06/18/24 22:22 Pulse Rate 53 L 06/18/24 23:28 Respiratory Rate 16 06/18/24 22:22 Blood Pressure 115/72 06/18/24 23:28 Pulse Oximetry 93 06/18/24 23:28 Oxygen Delivery Me thod Room Air 06/18/24 23:28 MDM - General Adult Medical Decision Making Medical decision making: Differential diagnosis including but not limited to and based on the above HPI, review of systems and physical exam: Patient presents with hypertension: Essential hypertension. Stroke. acute coronary syndrome. kidney failure. congestive heart failure. anxiety Orders placed to evaluate differential diagnosis based on the above differential, HPI and physical exam these include an EKG to evaluate for any ischemic changes, chest x-ray to evaluate for cardiomegaly, and basic lab work including a troponin and a BMP look at renal function. EKG: Time 2330. Rate 51. Sinus bradycardia, No ST-T changes, no ectopy, left bundle branch block, This was reviewed and interpreted by myself the ER physician at 2334 Lab Review: Laboratory results were reviewed and interpreted by myself the emergency room physician. White count is normal 8. Hemoglobin normal at 14.2. Renal function is normal at 14 and 1.1. Cardiac markers negative. I reviewed the patient's medical record. Reexamination: Patient remained stable. No increased work of breathing. No altered mental status. No focal motor deficits. Assessment and plan: Hypertension - Discharged home - Discussed findings and plan with patient. Answered any questions. - All laboratory values were reviewed and interpreted personally by myself, the ER physician - Evaluation and treatment of this problem were appropriate in the emergency setting Lab Data 06/18/24 23:42 06/18/24 23:42 Laboratory Results WBC 8.14 10^3/uL (3.29-11.43) 06/18/24 23:42 RBC 4.59 10^6/uL (3.85-5.65) 06/18/24 23:42 Hgb 14.20 g/dL (11.27-16.99) 06/18/24 23:42 Hct 42.0 % (37-53) 06/18/24 23:42 MCV 91.5 fl (82-101) 06/18/24 23:42 MCH 30.9 pg (27-33) 06/18/24 23: MCHC 33.8 g/dL (30-55) 06/18/24 23:42 RDW 12.5 % (12.1-15.1) 06/18/24 23:42 Plt Count 326 10^3/cmm (157-399) 06/18/24 23:42 MPV 9.1 fL (7.4-10.4) 06/18/24 23:42 Neut % (Auto) 42.6 % 06/18/24 23:42 Lymph % (Auto) 36.4 % 06/18/24 23:42 Benzie % (Auto) 10.4 % 06/18/24 23:42 Eos % (Auto) 9.1 % 06/18/24 23:42 Baso % (Auto) 1.0 % 06/18/24 23:42 Neut # (Auto) 3.47 10^3/uL (1.8-7.7) 06/18/24 23:42 Lymph # (Auto) 3.0 10^3/uL (0.8-4.8) 06/18/24 23:42 Benzie # (Auto) 0.9 10^3/uL (0.2-0.9) 06/18/24 23:42 Eos # (Auto) 0.7 10^3/uL (0.0-0.8) 06/18/24 23:42 Baso # (Auto) 0.1 10^3/uL (0.0-0.1) 06/18/24 23:42 Nucleated RBC % (auto) 0 % 06/18/24 23:42 Nucleated RBCs # 0.0 /100WBC 06/18/24 23:42 Sodium 141 mmol/L (136-145) 06/18/24 23:42 Potassium 4.4 mmol/L (3.5-5.1) 06/18/24 23:42 Chloride 106 mmol/L (98-107) 06/18/24 23:42 Carbon Dioxide 22 mmol/L (22-29) 06/18/24 23:42 Anion Gap 17.4 (5-19) 06/18/24 23:42 BUN 14 mg/dL (8-23) 06/18/24 23:42 Creatinine 1.1 mg/dL (0.7-1.2) 06/18/24 23:42 GFR Calculation Not Reportable 06/18/24 23:42 Glucose 111 mg/dL (65-115) 06/18/24 23:42 Calculated Osmolality 293 mOsm/kg (285-295) 06/18/24 23:42 Calcium 9.2 mg/dL (8.5-10.5) 06/18/24 23:42 Troponin T Baseline 12 ng/L (0-15) 06/18/24 23:42 No radiology studies performed this visit Discharge Plan Discharge Patient Disposition: Home Clinical Impression: Hypertension Condition: Stable Prescriptions: No Action cholecalciferol (vitamin D3) 1,250 mcg (50,000 unit) capsule 50,000 unit PO Q7D Rx Instructions: on Wednesdays finasteride 5 mg tablet 5 mg PO DAILY metoprolol succinate 25 mg tablet extended release 24 hr 25 mg PO DAILY acetaminophen [Tylenol Arthritis Pain] 650 mg tablet extended release 1,300 mg PO Q12H PRN (Reason: Pain) omeprazole 20 mg capsule,delayed release(DR/EC) 20 mg PO DAILY nitroglycerin 0.4 mg tablet, sublingual 0.4 mg sublingual Q5M PRN (Reason: chest pain) 30 Days Qty: 30 3RF Rx Instructions: until response; do not exceed 3 doses per episode rosuvastatin 10 mg tablet 10 mg PO DAILY Discharge Orders: Discharge ED (Routine); Ordered 06/19/24 Ordered By: Maria G Garcia Referrals: Vaughn Silva DO [Primary Care Provider] - Discharge Diet: Usual diet Discharge Activity: Resume usual activity Patient Instructions: Hypertension (ED) Activity Restrictions/Additional Instructions: Thank you for choosing [facility] for your healthcare needs today. Please realize this is an emergency room and that we are providing you with a medical screening exam and this may not be complete and all inclusive of all the testing and or work up that you may need to determine your ailment or severity of your illness. You have been screened and evaluated and felt safe for discharge. Health conditions do change or evolve sometimes and as such it is important that you follow up with your Primary Doctor to be re checked, 3-5 days is a general good time frame for follow up. 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
[2024-06-18 23:55] LABS: Basophils # 0.1 10^3/uL (0.0-0.1); Eosinophils # 0.7 10^3/uL (0.0-0.8); Eosinophils % 9.1 %; Lymphocytes % 36.4 %; Mean Corpuscular HGB Conc 33.8 g/dL (30-55); Mean Corpuscular Hemoglobin 30.9 pg (27-33); Mean Corpuscular Volume 91.5 fl (82-101); Mean Platelet Volume 9.1 fL (7.4-10.4); Monocytes # 0.9 10^3/uL (0.2-0.9); Monocytes % 10.4 %; Neutrophils # 3.47 10^3/uL (1.8-7.7); Neutrophils % 42.6 %; Nucleated Red Blood Cells % 0 %; Platelet Count 326 10^3/cmm (157-399); Red Blood Count 4.59 10^6/uL (3.85-5.65); Red Cell Distribution Width 12.5 % (12.1-15.1); White Blood Count 8.14 10^3/uL (3.29-11.43)
[2024-06-19 00:14] LABS: Troponin(5th) Baseline 12 ng/L (0-15)
[2024-06-19 00:34] LABS: Anion Gap 17.4 (5-19); Blood Urea Nitrogen 14 mg/dL (8-23); Calcium 9.2 mg/dL (8.5-10.5); Carbon Dioxide 22 mmol/L (22-29); Chloride 106 mmol/L (98-107); Creatinine Clr Calc Pharmacy 79.0263; Glucose 111 mg/dL (65-115); Osmolality Calculated 293 mOsm/kg (285-295); Potassium 4.4 mmol/L (3.5-5.1); Sodium 141 mmol/L (136-145)
[2024-06-19 00:48] VITALS: BP 134/84; PULSE 53; RESP 16; O2SAT 96
== END 2024-06-19 00:51 | disposition home or self-care (01) ==
PROVIDERS: Emergency Provider Emergency Medicine; PCP Electrodiagnostic Medicine
DX: I10 Essential (primary) hypertension (principal)
CPT/HCPCS: 80048; 84484; 85025; 93005; 99284

== ENCOUNTER → 2024-07-15 16:46 | Outpatient (BNVA) | payer OTHER, MEDICARE, SELFPAY | PROVIDERS: PCP Electrodiagnostic Medicine; Visit Provider Internal Medicine Cardiovascular Disease | DX: N18.9 Chronic kidney disease, unspecified (principal) | CPT/HCPCS: 36415; 84443 ==

== ENCOUNTER 2024-07-24 06:49 | Emergency (ER) | payer MEDICARE, OTHER, SELFPAY ==
[2024-07-24 06:52] VITALS: BP 169/75; PULSE 68; RESP 16; TEMP 36.5; O2SAT 98
--- NOTE | 2024-07-24 07:04 | XR_ITS ---
WS: [id number] PORTABLE CHEST HISTORY: tia COMPARISON: 02/04/2022 Lungs are clear and well expanded. No pleural effusion or pneumothorax. Cardiac size: Normal. Mediastinum/Aorta: Normal mediastinum. Mild AC joint arthritis. XR/XR chest 1V portable [id number] IMPRESSION: Unremarkable portable chest.
[2024-07-24 07:05] VITALS: BP 169/75; PULSE 61; RESP 18; O2SAT 94
--- NOTE | 2024-07-24 07:05 | CTR_ITS ---
PROCEDURE INFORMATION: Exam: CT Head Without Contrast Exam date and time: 07/24/2024 7:11 AM Age: 79 years old Clinical indication: Stroke-like symptoms; Right upper extremity numbness/paresthesia; Additional info: Symptoms of acute stroke, right hand symptoms-improved TECHNIQUE: Imaging protocol: Computed tomography of the head without contrast. Radiation optimization: All CT scans at this facility use at least one of these dose optimization techniques: automated exposure control; mA and/or kV adjustment per patient size (includes targeted exams where dose is matched to clinical indication); or iterative reconstruction. Other technique: STROKE PROTOCOL was implemented. COMPARISON: MR portillo's wo/w con* [id number] 10/03/2017 2:00 PM RADIATION DOSE METRICS: Total DLP (mGy-cm): 1082.68 FINDINGS: Brain: There is no mass effect, midline shift, acute hemorrhage, extra-axial fluid collection or acute lobar infarct. Coarse calcification is noted within the right sylvian fissure. Cerebral ventricles: No ventriculomegaly. Paranasal sinuses: Visualized sinuses are unremarkable. No fluid levels. Mastoid air cells: Visualized mastoid air cells are well aerated. Orbital cavities: The patient is post bilateral cataract surgery. Bones: Unremarkable. No acute fracture. Soft tissues: Unremarkable. CT/CT head thrombolytic [id number] IMPRESSION: No acute intracranial process. ASSESSMENT: ASPECTS ([facility] Stroke Program Early CT Score) is 10.
--- NOTE | 2024-07-24 07:06 | ED_ITS ---
HPI - Neuro Symptoms/Deficit 2 General: Chief Complaint: Neuro Symptoms/Deficit Stated Complaint: stroke like syptoms Time Seen by Provider: 07/24/24 07:04 Source: patient and family Mode of arrival: ambulatory Limitations: no limitations History of Present Illness: This patient presents to the emergency department because of concerns about right hand discoordination. He states he awoke normal time this morning and felt in his normal state of health and began his usual daily toilet. He states that he brushed his teeth and then began to try to comb his hair and his right hand would not seem to do what he wanted it to. This was noted about 6 AM. He states that he had a mild headache this morning but otherwise denied any other symptoms. He states he was able to walk normally and his states that he was able to speak to her and normal voice. There was a event maybe a year or so ago in which his relates that she was speaking to him and he seemed to stop and midsentence and could not remember what they were talking about. She states that resolved without any sequela I. He has a history of hypertension as well as Crohn's disease. She does not take any antiplatelet agents. She has had a prior cholecystectomy as well as a cervical laminectomy. He has chronic low back pain and some chronic sensory changes lower extremities but no history of diabetes. Patient states he was told he has high cholesterol and high triglycerides but does not take any medication for that condition Denies any recent falls illness etc. he states he is currently wearing a ambulatory monitor because he was told he might have a slow heart rate. Timing confirmed by: spouse History of same: No Severity: mild Quality: improving Relieving factors: none On Anticoagulants: No Associated symptoms: Reports no associated symptoms and headache(s); Deny chest pain, nausea, syncope or vomiting Related Data Home Medications Medication Instructions Recorded Confirmed acetaminophen 650 mg 1,300 mg PO Q12H PRN Pain 11/22/20 07/24/24 tablet,extended release (Tylenol Arthritis Pain) finasteride 5 mg tablet 5 mg PO DAILY 11/22/20 07/24/24 omeprazole 20 mg capsule,delayed 20 mg PO QAM 11/22/20 07/24/24 release metoprolol succinate 25 mg 12.5 mg PO DAILY 07/15/24 07/24/24 tablet,extended release 24 hr alpha lipoic acid 100 mg capsule 100 mg PO BID 07/24/24 07/24/24 apple cider vinegar 600 mg capsule 600 mg PO DAILY 07/24/24 07/24/24 cholecalciferol (vitamin D3) 50 50 mcg PO DAILY 07/24/24 07/24/24 mcg (2,000 unit) tablet (Vitamin D3) ezetimibe 10 mg tablet 10 mg PO DAILY 07/24/24 07/24/24 fenofibrate nanocrystallized 48 mg 48 mg PO DAILY 07/24/24 07/24/24 tablet lactobacillus combination no.4 3 3,000 mmu cells PO BID 07/24/24 07/24/24 billion cell capsule (Probiotic) lisinopril 20 mg tablet 10 mg PO DAILY 07/24/24 07/24/24 multivitamin 1 tab PO QAM 07/24/24 07/24/24 Previous Rx's Medication Instructions Recorded atorvastatin 20 mg tablet 20 mg PO DAILY #30 tabs 07/24/24 Allergies Allergy/AdvReac Type Severity Reaction Status Date / Time lisinopril Allergy Intermediate ADR-Headach Verified 07/15/24 16:06 e azathioprine [From Imuran] Allergy pancreatiti Verified 07/15/24 15:42 s metronidazole [From Flagyl] Allergy Unknown Verified 07/15/24 15:42 isosorbide AdvReac Severe headache Verified 07/15/24 15:42 Review of Systems 2 Const: Denies: fever(s) or chills Eyes: Denies: change in vision ENMT: Denies: odynophagia or nasal discharge Card: Denies: chest pain, palpitations, lightheadedness, syncope or pre- syncope Resp: Denies: dyspnea, productive cough or non-productive cough GI: Denies: nausea or vomiting : Denies: flank pain, difficulty urinating, dysuria or urinary frequency Musc: Reports: back pain; Denies: neck pain, extremity pain or extremity swelling Skin/Breast: Denies: rash or pruritus Neuro: Reports: headache(s), weakness in extremities and lack of coordination; Denies: Slurred speech present or seizure-like activity PFSH ED 2 PFSH: Medical History Vitamin D deficiency Hx of Crohn's disease Osteopenia GERD (gastroesophageal reflux disease) Surgical History History of cholecystectomy History of neck surgery Family History Father CAD (coronary artery disease) Dementia Stroke Mother CAD (coronary artery disease) Family/Other Cancer Denies family history of Diabetes Clotting disorder Chronic kidney disease (CKD) Suicide Anesthesia complication Bleeding disorder Lung disease Social History Smoking and tobacco/nicotine status: former use of tobacco/nicotine Alcohol intake: never Substance/Drug Use: never NIH stroke score 2 NIHSS: Level Of Consciousness - 1a: 0 Level Of Consciousness Questions - 1b: Both Correct Level Of Consciousness Commands - 1c: Both Correct Best Gaze - 2: Normal Visual Jorgensen - 3: No Visual Loss Facial Palsy - 4: N ormal Motor Arm Right - 5: No Drift Motor Arm Left - 5: No Drift Motor Leg Right - 6: No Drift Motor Leg Left - 6: No Drift Limb Ataxia - 7: A bsent Sensory - 8: Normal Best Language - 9: No Aphasia Dysarthia - 10: Normal Extinction And Inattention - 11: 0 Score: Total Score: 0 Physical Exam 2 Narrative: EXAM NARRATIVE: Appears to be alert makes good eye contact and answers questions cogent goal- directed fashion Const: COMMON NORMALS: no acute distress, average body habitus, patient oriented x3 and alert GENERAL APPEARANCE: cooperative, comfortable and well kempt HENMT: COMMON NORMALS: normocephalic, atraumatic, Normal nasal mucous membranes and turbinates present and moist oral mucous membranes HEAD & SCALP: normocephalic and atraumatic FACE & SINUS: normal facial exam and face symmetric NOSE: Normal nasal mucous membranes and turbinates present Eye: COMMON NORMALS: Equal, round and reactive pupils present, EOMs intact bilaterally and conjunctivae normal CONJUNCTIVA: Yes conjunctivae normal P UPIL: Yes Equal, round and reactive pupils present Neck/C-Spine: COMMON NORMALS: full ROM, supple, no JVD and No carotid bruits Chest: COMMONS NORMALS: normal inspection of the chest Resp: COMMON NORMALS: normal respiratory effort, No retractions, No use of accessory muscles and clear to auscultation bilaterally AUSCULTATION: clear to auscultation bilaterally Cardio: COMMON NORMALS: no JVD, regular rate, regular rhythm, No murmurs present (Cardio) and Peripheral pulses 2+ throughout RATE: regular rate R HYTHM: regular rhythm PERIPHERAL PULSES: Peripheral pulses 2+ throughout GI: COMMON NORMALS: Normal to inspection, nondistended, normoactive bowel sounds present, Soft to palpation and non-tender PALPATION: Yes Soft to palpation : COMMON NORMALS: Yes no CVA tenderness BLADDER/KIDNEY EXAM: Yes no CVA tenderness Back/Pelvis: COMMON NORMALS: no CVA tenderness and thoracic and lumbar spine normal to inspection LUMBAR SPINE/LOWER BACK: Yes paraspinal muscle tenderness (Subjective tenderness to palpation over the soft tissues without ecchymosis) Lumbar paraspinal muscle tenderness: left and Yes straight leg raise positive left (Subjective) Straight leg raise positive details left: at 40 degrees Extremity: COMMON NORMALS: normal to inspection, full ROM, capillary refill normal, no calf tenderness and no pedal edema Neuro: COMMON NORMALS: patient oriented x3, moves all extremities and no focal motor deficits SENSORIUM/ORIENTATION: Yes alert CRANIAL NERVES: Yes CN normal except as noted COORDINATION/BALANCE: [id number] test normal and [id number] test normal SPEECH: speech normal GAIT: Yes Normal gait present MOTOR EXAM: 5/5 motor strength present throughout COORDINATION: f [id number]-[id number] test normal and [id number]-[id number] test normal Psych: COMMON NORMALS: mental status grossly normal APPEARANCE: Yes well kempt Skin: COMMON NORMALS: no rashes or lesions noted, no wounds and turgor normal GENERAL SKIN EXAM: no rashes or lesions noted and turgor normal Course 2 Reevaluation(s): Reevaluation #1: Reevaluation. Patient remained stable without any new or focal findings on his examination. Current workup is only remarkable for slight elevation in triglycerides but also has a low HDL level. We discussed broaches to risk reduction in him. He apparently had carotid ultrasounds done but apparently was many years ago so we will try to see if we can get a repeat study at this time. He had an echocardiogram as well as an angiogram within the last 2 years which were unremarkable so I do not feel that those are contributory at this time and he is not displaying any signs of arrhythmia. He apparently has had a history of issues with nonsteroidals and does not take any aspirin or other antiplatelet agents because of that. He is willing to trial 81 mg enteric-coated aspirin. He is also apparently has issues with statins in the past and that they called myalgia caused myalgias and he discontinued them and is does not wish to take those at this time. I discussed that those are the primary options regarding wrist reductions at this time. Time: 09:52 Vital Signs: Vital signs: Vital Signs Temperature 97.7 F 07/24/24 06:52 Pulse Rate 61 07/24/24 07:05 Respiratory Rate 18 07/24/24 07:05 Blood Pressure 169/75 07/24/24 07:05 Pulse Oximetry 94 07/24/24 07:05 Oxygen Delivery Me thod Room Air 07/24/24 07:05 MDM - Neuro Symptoms/Deficit Medical Decision Making This patient presents to the emergency department as noted in the history of present illness. Patient had a acute onset of right hand discoordination as noted. Seemingly now resolved with an NIH of 0 and no other findings of significance on neurologic examination. Remainder of his clinical examination was only remarkable for some mild left lumbar soft tissue tenderness and positive straight leg raising on the left. He does have a history of chronic back pain as well. Differential diagnosis primarily central ischemia, small vessel disease versus microvascular embolic phenomenon. Workup will be initiated to evaluate for any acute reversible etiologies of his symptoms and then depending on results of workup proceed for possible neurologic consultation or other imaging. Prior history of carotid studies in 2019 which were unremarkable and he has no carotid bruits on clinical exam today. Workup ensued which included a reassuring noncontrast CT scan. Other findings are notable for essentially normal total cholesterol with a low HDL. He did have a elevated triglycerides as well as blood sugar make me wonder if he does not have an occult diabetes mellitus particular given his lower extremity neuropathy symptoms. Carotid ultrasounds were obtained which revealed noncritical stenosis but some progression on the left carotid with some plaque formation. I reviewed these findings with the patient and spouse. At this point he does not need to be admitted to the hospital but will need additional follow-up and will place a neurology consultation. I have also discussed giving him a trial of 81 mg of enteric-coated aspirin and see if he tolerates it to help with his stroke risk reduction as well as a second trial of a statin. He voiced understanding of recommendations. Medical Records I reviewed the patient's medical records. Prior coronary artery catheterization without any significant stenosis in 2021. Prior echocardiogram in 2020 which showed normal cardiac function with an ejection fraction of 55% Lab Data I reviewed the patient's lab results. 07/24/24 07:42 07/24/24 07:42 Radiology Impressions Chest X-Ray 07/24/24 07:04 IMPRESSION: Unremarkable portable chest. Head CT 07/24/24 07:05 IMPRESSION: No acute intracranial process. ASSESSMENT: ASPECTS ([place] Stroke Program Early CT Score) is 10. Laboratory Results WBC 6.18 10^3/uL (3.29-11.43) 07/24/24 07:42 RBC 4.45 10^6/uL (3.85-5.65) 07/24/24 07:42 Hgb 13.90 g/dL (11.27-16.99) 07/24/24 07:42 Hct 41.7 % (37-53) 07/24/24 07:42 MCV 93.7 fl (82-101) 07/24/24 07:42 MCH 31.2 pg (27-33) 07/24/24 07:42 MCHC 33.3 g/dL (30-55) 07/24/24 07:42 RDW 12.8 % (12.1-15.1) 07/24/24 07:42 Plt Count 286 10^3/cmm (157-399) 07/24/24 07:42 MPV 9.0 fL (7.4-10.4) 07/24/24 07:42 Neut % (Auto) 47.2 % 07/24/24 07:42 Lymph % (Auto) 32.7 % 07/24/24 07:42 Coos % (Auto) 11.0 % 07/24/24 07:42 Eos % (Auto) 7.1 % 07/24/24 07:42 Baso % (Auto) 1.5 % 07/24/24 07:42 Neut # (Auto) 2.92 10^3/uL (1.8-7.7) 07/24/24 07:42 Lymph # (Auto) 2.0 10^3/uL (0.8-4.8) 07/24/24 07:42 [place]os # (Auto) 0.7 10^3/uL (0.2-0.9) 07/24/24 07:42 Eos # (Auto) 0.4 10^3/uL (0.0-0.8) 07/24/24 07:42 Baso # (Auto) 0.1 10^3/uL (0.0-0.1) 07/24/24 07:42 Nucleated RBC % (auto) 0 % 07/24/24 07:42 Nucleated RBCs # 0.0 /100WBC 07/24/24 07:42 PT 13.60 SECONDS (12.1-14.9) 07/24/24 07:42 INR 1.00 (0.8-1.2) 07/24/24 07:42 APTT 26.0 SECONDS (23.9-36.7) 07/24/24 07:42 Sodium 139 mmol/L (136-145) 07/24/24 07:42 Potassium 4.0 mmol/L (3.5-5.1) 07/24/24 07:42 Chloride 105 mmol/L (98-107) 07/24/24 07:42 Carbon Dioxide 25 mmol/L (22-29) 07/24/24 07:42 Anion Gap 13.0 (5-19) 07/24/24 07:42 BUN 16 mg/dL (8-23) 07/24/24 07:42 Creatinine 1.2 mg/dL (0.7-1.2) 07/24/24 07:42 GFR Calculation Not Reportable 07/24/24 07:42 Glucose 157 mg/dL (65-115) H 07/24/24 07:42 POC Glucose 102 mg/dL (70-110) 07/24/24 07:37 Calculated Osmolality 292 mOsm/kg (285-295) 07/24/24 07:42 Calcium 8.7 mg/dL (8.5-10.5) 07/24/24 07:42 Total Bilirubin 0.4 mg/dL (0.15-1.2) 07/24/24 07:42 AST 24 U/L (0-40) 07/24/24 07:42 ALT 18 U/L (0-41) 07/24/24 07:42 Alkaline Phosphatase 65 U/L (40-130) 07/24/24 07:42 Total Protein 6.8 g/dL (6.6-8.7) 07/24/24 07:42 Albumin 3.9 g/dL (3.5-5.2) 07/24/24 07:42 Globulin 2.9 g/dL (1.3-4.6) 07/24/24 07:42 Triglycerides 239 mg/dL (0-150) H 07/24/24 07:42 Cholesterol 200 mg/dL (0-200) 07/24/24 07:42 LDL Cholesterol, Calc 117 mg/dL (50-129) 07/24/24 07:42 HDL Cholesterol 35 mg/dL (60-100) L 07/24/24 07:42 LDL/HDL Ratio 3.34 RATIO (0.00-3.22) H 07/24/24 07:42 Cholesterol/HDL Ratio 5.71 mg/dL (1.0-5.00) H 07/24/24 07:42 Urine Color Yellow (Yellow) 07/24/24 07:48 Urine Appearance Clear (CLEAR) 07/24/24 07:48 Urine pH 5.5 (5-7) 07/24/24 07:48 Ur Specific Craig 1.017 (1.005-1.030) 07/24/24 07:48 Urine Protein Negative (Negative) 07/24/24 07:48 Urine Glucose (UA) Negative (Normal) 07/24/24 07:48 Urine Ketones Negative (Negative) 07/24/24 07:48 Urine Blood Negative (Negative) 07/24/24 07:48 Urine Nitrate Negative (Negative) 07/24/24 07:48 Urine Bilirubin Negative (Negative) 07/24/24 07:48 Urine Urobilinogen 0.2 mg/dL (Negative) 07/24/24 07:48 Ur Leukocyte Esterase Negative (Negative) 07/24/24 07:48 Urine RBC 0-2 /hpf (0-2) 07/24/24 07:48 Urine WBC 0-5 /hpf (0-5) 07/24/24 07:48 Ur Squamous Epith Cells 0-5 /hpf (0-5) 07/24/24 07:48 Amorphous Sediment Not Reportable 07/24/24 07:48 Urine Bacteria None seen /hpf (NONE) 07/24/24 07:48 Hyaline Casts 0-4 /lpf H 07/24/24 07:48 All radiology interpretation(s) finalized by discharge EKG Data EKG 1: I personally reviewed and interpreted this EKG as follows: Interpretation: Contemporaneous review of resting EKG reveals ventricular rate of 53 bpm consistent with sinus bradycardia. Has a prolonged GA interval consistent with first-degree block. He also has a left bundle branch block pattern. No acute ST-T wave changes noted. This tracing is essentially unchanged from that previously noted in this medical record Discharge Plan Discharge Patient Disposition: Home Clinical Impression: Brain TIA, Dyslipidemia Condition: Stable Prescriptions: New atorvastatin 20 mg tablet 20 mg PO DAILY Qty: 30 1RF No Action finasteride 5 mg tablet 5 mg PO DAILY acetaminophen [Tylenol Arthritis Pain] 650 mg tablet extended release 1,300 mg PO Q12H PRN (Reason: Pain) omeprazole 20 mg capsule,delayed release(DR/EC) 20 mg PO QAM metoprolol succinate 25 mg tablet extended release 24 hr 12.5 mg PO DAILY multivitamin Tablet 1 tab PO QAM lisinopril 20 mg Tablet 10 mg PO DAILY apple cider vinegar 600 mg Capsule 600 mg PO DAILY ezetimibe 10 mg Tablet 10 mg PO DAILY fenofibrate nanocrystallized 48 mg Tablet 48 mg PO DAILY alpha lipoic acid 100 mg Capsule 100 mg PO BID Vitamin D3 50 mcg (2,000 unit) Tablet 50 mcg PO DAILY Probiotic 3 billion cell Capsule 3,000 mmu cells PO BID Rx Instructions: administer with a meal Discharge Orders: Discharge ED (Routine); Ordered 07/24/24 Ordered By: Shelton Mcmillan Referrals: Vaughn Silva DO [Primary Care Provider] - Discharge Diet: Advance as tolerated Discharge Activity: Resume usual activity Patient Instructions: Opioid Safety, Pain Management Activity Restrictions/Additional Instructions: As we discussed while you are in the emergency department you likely have had what is called a transient ischemic attack or TIA. This occurs because of a temporary decrease of blood flow to parts of your brain. We recommend starting with 81 mg of enteric-coated aspirin with your meal to see if you tolerate this medication as it will help reduce stroke risk. We also recommending a low-dose of atorvastatin on a daily basis with your evening meal. While you have had a history of muscle aches associated with statins in the past we hope that starting you on a low-dose and advancing it will help your reduce your symptoms. We have also placed a consultation for a neurology follow-up. You should be contacted next week to determine that appointment. If you develop any recurrent or similar symptoms that lasted more than 30 minutes call 911 or immediately report to the nearest emergency department. Coding Level of Care Code ED [employer] [place] [employer]
--- NOTE | 2024-07-24 07:18 | ECG_ITS ---
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 Measurements Intervals [place] Rate: 53 P: 48 MT: 239 QRS: -31 QRSD: 150 T: 95 QT: 458 QTc: 433 Interpretive Statements SINUS BRADYCARDIA WITH FIRST DEGREE AV BLOCK LEFT AXIS DEVIATION [QRS AXIS < -30] LEFT BUNDLE BRANCH BLOCK [120+ ms QRS DURATION, 80+ ms Q/S IN V1/V2, 85+ ms R IN I/aVL/V5/V6] Compared to ECG 06/18/2024 23:30:55 Left-axis deviation now present Electronically Signed On 07-24-2024 10:32:38 CDT by Jaylen Shafer M.D. [id number] f
[2024-07-24 07:45] LABS: Glucose Point of Care 102 mg/dL (70-110)
[2024-07-24 07:49] LABS: Basophils # 0.1 10^3/uL (0.0-0.1); Basophils % 1.5 %; Eosinophils # 0.4 10^3/uL (0.0-0.8); Eosinophils % 7.1 %; Hematocrit 41.7 % (37-53); Lymphocytes % 32.7 %; Mean Corpuscular HGB Conc 33.3 g/dL (30-55); Mean Corpuscular Hemoglobin 31.2 pg (27-33); Mean Corpuscular Volume 93.7 fl (82-101); Monocytes # 0.7 10^3/uL (0.2-0.9); Neutrophils # 2.92 10^3/uL (1.8-7.7); Neutrophils % 47.2 %; Nucleated Red Blood Cells % 0 %; Platelet Count 286 10^3/cmm (157-399); Red Blood Count 4.45 10^6/uL (3.85-5.65); Red Cell Distribution Width 12.8 % (12.1-15.1); White Blood Count 6.18 10^3/uL (3.29-11.43)
[2024-07-24 08:08] LABS: Albumin Level 3.9 g/dL (3.5-5.2); Alkaline Phosphatase 65 U/L (40-130); Aspartate Amino Transferase 24 U/L (0-40); Blood Urea Nitrogen 16 mg/dL (8-23); Calcium 8.7 mg/dL (8.5-10.5); Carbon Dioxide 25 mmol/L (22-29); Chloride 105 mmol/L (98-107); Creatinine Clr Calc Pharmacy 66.4189; Globulin 2.9 g/dL (1.3-4.6); Glucose 157 mg/dL (65-115); Osmolality Calculated 292 mOsm/kg (285-295); Sodium 139 mmol/L (136-145); Total Bilirubin 0.4 mg/dL (0.15-1.2); Total Protein 6.8 g/dL (6.6-8.7)
[2024-07-24 08:16] LABS: Bilirubin Urine Negative (Negative); Blood Urine Negative (Negative); Glucose Urine UA Negative (Normal); Ketones Urine Negative (Negative); Leukocyte Esterase Urine Negative (Negative); Nitrate Urine Negative (Negative); Protein Urine Negative (Negative); Specific Gravity, Urine 1.017 (1.005-1.030); Urine Appearance Clear (CLEAR); Urine Color Yellow (Yellow); Urobilinogen Urine 0.2 mg/dL (Negative); pH Urine 5.5 (5-7)
[2024-07-24 08:18] LABS: Alanine Aminotransferase 18 U/L (0-41)
[2024-07-24 08:20] LABS: Add Urine Microscopic? YES; Bacteria Urine None Seen /hpf; Hyaline Casts Urine 0-4 /lpf; RBC Urine 0-2 /hpf (0-2); Squamous Epithelial Cell Urine 0-5 /hpf (0-5); WBC Urine 0-5 /hpf (0-5)
[2024-07-24 08:32] LABS: Chol HDL Ratio 5.71 mg/dL (1.0-5.00); Cholesterol 200 mg/dL (0-200); HDL Cholesterol 35 mg/dL (60-100); LDL Cholesterol Calculated 117 mg/dL (50-129); LDL HDL Ratio 3.34 RATIO (0.00-3.22); Triglycerides 239 mg/dL (0-150)
--- NOTE | 2024-07-24 08:39 | PC.PHAR ---
[facility] 07/24/24 8:39am
--- NOTE | 2024-07-24 09:50 | USCV_ITS ---
Chinmay Hernandes Age: 79 Gender: M : 1945 Exam Date: 07/24/2024 10:19 Ordering Phys: Shelton Mcmillan DO Technologist: JEANINE Exam Location: [facility] [place] Indication: TIA Risk Factors: Previous Vascular Surgery: Right Brachial BP: / Left Brachial BP: / Right Left Velocity (cm/s) Spectral Plaque Velocity (cm/s) Spectral Plaque Syst/Diast Broadening Syst/Diast Broadening 98.30/ 27.10 Prox CCA 100.80/ 25.10 95.70/ 28.40 Mid CCA 88.20 / 25.10 88.00/ 23.20 Distal CCA 72.00 / 17.90 84.40/ 20.70 Prox ICA 187.80/ 69.30 88.00/ 25.80 Mid ICA 160.60/ 44.70 95.70/ 37.40 Distal ICA 144.00/ 51.30 91.90 ECA 73.40 1.10 ICA/CCA 2.60 Antegrade Vertebral Antegrade 43.10/ 10.20 cm/s 83.30/ 30.70 cm/s Tri Subclavian Tri 94.20 132.6 0 FINDINGS Comparison:. 06/19/19 Increase in plaque and stenosis, greatest in the left ICA. Increase in velocity left ICA. Heterogenous plaque, greatest on the left. Antegrade vertebral arteries. CONCLUSIONS Left ICA stenosis 50-69%. Progression of plaque and stenosis since 2019. Right ICA stenosis < 50%. Dr. Yulissa Boyle DO (Electronically Signed) Final Date: 24 July 2024 11:19 S
[2024-07-24 12:47] VITALS: BP 132/81; PULSE 59; O2SAT 98
--- NOTE | 2024-07-24 13:59 | DCPLANNER ---
message sent to neuro for er f/u
== END 2024-07-24 12:47 | disposition home or self-care (01) ==
PROVIDERS: Emergency Provider Emergency Medicine; PCP Electrodiagnostic Medicine
DX: G45.9 Transient cerebral ischemic attack, unspecified (principal); E78.5 Hyperlipidemia, unspecified; R00.1 Bradycardia, unspecified; I44.7 Left bundle-branch block, unspecified; Z87.891 Personal history of nicotine dependence
CPT/HCPCS: 36415; 36416; 70450; 71045; 80053; 80061; 81001; 82962; 85025; 85610; 85730; 93005; 93880; 99285

== ENCOUNTER → 2024-08-05 09:47 | Outpatient (BNVA) | payer MEDICARE, OTHER, SELFPAY | PROVIDERS: PCP Electrodiagnostic Medicine; Referring Provider Electrodiagnostic Medicine; Visit Provider Psychiatry & Neurology Neurology | DX: R00.1 Bradycardia, unspecified (principal); R53.83 Other fatigue; G45.9 Transient cerebral ischemic attack, unspecified; E78.5 Hyperlipidemia, unspecified; I44.7 Left bundle-branch block, unspecified; I25.10 Atherosclerotic heart disease of native coronary artery without angina pectoris; R20.0 Anesthesia of skin | CPT/HCPCS: 36415; 81241; 83090; 85210; 85300; 85303; 85306; 86147; 99203 ==

== ENCOUNTER 2024-08-27 09:00 | Outpatient (CLI) | payer MEDICARE, OTHER, SELFPAY ==
--- NOTE | 2024-08-27 09:07 | USCV_ITS ---
Chinmay Hernandes Age: 79 Gender: M : 1945 Exam Date: 08/27/2024 09:42 Ordering Phys: Vaughn Silva DO Technologist: LEO Exam Location: [facility] [place] Indication: TIA BP: / HR: 60 Rhythm: Sinus Technical Quality: Adequate MEASUREMENTS (Male / Female) Normal Values 2D ECHO LV Diastolic Diameter PLAX 3.5 cm 4.2 - 5.9 / 3.9 - 5.3 cm IVS Diastolic Thickness 1.3 cm 0.6 - 1.0 / 0.6 - 0.9 cm IVS Systolic Thickness 1.6 cm LVPW Diastolic Thickness 1.3 cm 0.6 - 1.0 / 0.6 - 0.9 cm LVPW Systolic Thickness 1.5 cm LVOT Diameter 2.1 cm LV Ejection Fraction 2D Teich 68.4 % LV Ejection Fraction MOD 4C 58.5 % LV Ejection Fraction MOD 2C 57.9 % LV Ejection Fraction 2C AL 58.6 % LA Diameter 1.9 cm RA Systolic Volume 4C AL 40.9 ml RA Systolic Volume 4C MOD 37.0 ml Aorta at Sinotubular Diameter 3.6 cm M-MODE LA Ao Ratio MM 1.7 AV Cusp Separation MM 2.3 cm DOPPLER AV Peak Velocity 104.0 cm/s LVOT Peak Velocity 83.0 cm/s AV Area Cont Eq vti 2.8 cm squared AV Area Cont Eq pk 2.7 cm squared MV Area PHT 2.7 cm squared Mitral E to A Ratio 0.8 TV Peak Velocity 184.7 cm/s TR Peak Velocity 245.0 cm/s TR Peak Gradient 24.0 mmHg TR Mean Velocity 147.0 cm/s TR Mean Gradient 10.9 mmHg TR Velocity Time Integral 60.6 cm TV Peak E Velocity 61.0 cm/s PV Peak Velocity 137.0 cm/s FINDINGS Left Ventricle Normal left ventricular size, systolic function and wall thickness, with no regional wall motion abnormalities. Left ventricular ejection fraction is estimated at 60 %. Grade I/IV diastolic dysfunction (abnormal relaxation filling pattern), normal to mildly elevated filling pressures. Right Ventricle The right ventricle is normal in size and function. Right Atrium The right atrium is normal in size. Left Atrium The left atrium is normal in size. Mitral Valve Mildly thickened mitral valve. No mitral valve stenosis. Mild mitral valve regurgitation. Aortic Valve Structurally normal aortic valve without significant sclerosis or stenosis. There is no aortic regurgitation. Tricuspid Valve Structurally normal tricuspid valve without significant stenosis or regurgitation. Pulmonary artery systolic pressure is normal. Pulmonic Valve Structurally normal pulmonic valve without significant stenosis. There is no pulmonic regurgitation. Pericardium Normal pericardium without effusion. Aorta Normal ascending aorta dimension. IVC The inferior vena cava appears normal. CONCLUSIONS Normal left ventricular size, systolic function and wall thickness, with no regional wall motion abnormalities. Left ventricular ejection fraction is estimated at 60 %. Grade I/IV diastolic dysfunction (abnormal relaxation filling pattern), normal to mildly elevated filling pressures. Mildly thickened mitral valve. No mitral valve stenosis. Mild mitral valve regurgitation. There is no pericardial effusion. Right atrial pressure is around 5 mm of mercury. Ashlee Espinal MD (Electronically Signed) Final Date: 27 August 2024 20:24 S
--- NOTE | 2024-08-27 09:07 | MR_ITS ---
WS: [id number] MRI BRAIN WITH AND WITHOUT CONTRAST HISTORY: TRANSIENT CEREBRAL ISCHEMIA COMPARISON: 10/03/2017 TECHNIQUE: Multiplanar imaging performed through the brain with MultiHance 20 ml's IV. No acute infarcts are seen. Santiago-white matter differentiation is well preserved. Very mild volume los s and atrophy. Mild small vessel ischemic disease which has slightly progressed since 2017. No infarc t. Mild hippocampal atrophy. No susceptibility artifacts or prior lacunar infarcts. Ventricles and extra-axial spaces are normal. Clivus and pituitary gland are normal. Visualized posterior fossa and brainstem are also normal. Postcontrast images are negative for masses or vascular malformations. Dural venous sinuses are normal. Paranasal sinuses: Well aerated with no significant disease. Mastoid air cells: Normal. Calvarium and scalp: Normal. MR/MR head wo/w con [id number] IMPRESSION: 1. No acute intracranial hemorrhage or edema. No acute infarct. 2. Mild cerebral volume loss and atrophy with small vessel disease. Minimal pr ogression since the prior study from 2016. 3. Very mild hippocampal atrophy. 4. No enhancing masses or vascular malformations.
[2024-08-27] MEDS: gadobenate dimeglumine 20 mL vial IV (10:41)
== END 2024-08-27 09:01 | disposition home or self-care (01) ==
PROVIDERS: PCP Electrodiagnostic Medicine; Visit Provider Electrodiagnostic Medicine
DX: I50.30 Unspecified diastolic (congestive) heart failure (principal); G45.9 Transient cerebral ischemic attack, unspecified
CPT/HCPCS: 70553; 93306

== ENCOUNTER → 2024-09-01 13:36 | Outpatient (BNVA) | payer MEDICARE, OTHER, SELFPAY | PROVIDERS: PCP Electrodiagnostic Medicine; Referring Provider Psychiatry & Neurology Neurology; Visit Provider Psychiatry & Neurology Neurology | DX: R56.9 Unspecified convulsions (principal); G93.40 Encephalopathy, unspecified | CPT/HCPCS: 95816; 95819 ==

== ENCOUNTER 2024-09-02 12:44 | Outpatient (CLI) | payer MEDICARE, OTHER, SELFPAY ==
[2024-09-02 13:29] LABS: Thyroid Stimulating Hormone 2.34 uIU/mL (0.27-4.20)
== END 2024-09-02 12:45 | disposition home or self-care (01) ==
LOC: LAB 12:45
PROVIDERS: PCP Electrodiagnostic Medicine; Visit Provider Internal Medicine Cardiovascular Disease
DX: R53.83 Other fatigue (principal); I44.7 Left bundle-branch block, unspecified; E78.5 Hyperlipidemia, unspecified; I10 Essential (primary) hypertension
CPT/HCPCS: 84443

== ENCOUNTER 2024-11-15 08:07 | Emergency (ER) | payer MEDICARE, OTHER, SELFPAY ==
[2024-11-15 08:15] VITALS: BP 179/98; PULSE 103; RESP 17; TEMP 36.7; O2SAT 95; BMI 26.2
--- NOTE | 2024-11-15 08:43 | W.ED.FEVER ---
HPI - Fever General: Chief Complaint: Fever Stated Complaint: fever , headache Time Seen by Provider: 11/15/24 08:16 History of Present Illness: 79-year-old male presents along with his , ambulatory to the emergency department from home. Patient reports he started feeling ill yesterday and developed frontal headache, pressure in his sinuses, sinus congestion, dry cough, bronchial irritation and burning in the trachea area when he breathes. He developed a fever last night. He took Tylenol 1000 mg around 7 AM this morning. Patient reports his fever has now resolved and temperature is 98.1 on arrival. Patient has had some nausea with his headache but no vomiting, stomach pain, diarrhea, rashes, wounds, swollen joints. He had some mild bodyaches when his fever was up. No neck stiffness or altered mental status. No neurologic complaints. Patient reports his blood pressure is typically up when he goes to the doctor. At home his blood pressure has been okay. In fact, his doctor took him off of his blood pressure medication because his blood pressures had been so good for the last several weeks. Patient reports last night he took some Benadryl. No other cough or cold medications. Associated symptoms: Deny abdominal pain, flank pain, chest pain, diarrhea, dysuria or vomiting Related Data Home Medications Medication Instructions Recorded Confirmed acetaminophen 650 mg 1,300 mg PO Q12H PRN Pain 11/22/20 09/01/24 tablet,extended release (Tylenol Arthritis Pain) finasteride 5 mg tablet 5 mg PO DAILY 11/22/20 09/01/24 omeprazole 20 mg capsule,delayed 20 mg PO QAM 11/22/20 09/01/24 release cholecalciferol (vitamin D3) 50 50 mcg PO DAILY 07/24/24 09/01/24 mcg (2,000 unit) tablet (Vitamin D3) lactobacillus combination no.4 3 3,000 mmu cells PO BID 07/24/24 09/01/24 billion cell capsule (Probiotic) aspirin 81 mg tablet,delayed 81 mg PO DAILY 08/05/24 09/01/24 release Previous Rx's Medication Instructions Recorded atorvastatin 20 mg tablet 20 mg PO DAILY #30 tabs 07/24/24 levothyroxine 25 mcg tablet 25 mcg PO DAILY #30 tabs 08/20/24 metoprolol succinate 25 mg 12.5 mg (1/2 x 25 mg) PO DAILY #35 09/01/24 tablet,extended release 24 hr tabs Allergies Allergy/AdvReac Type Severity Reaction Status Date / Time lisinopril Allergy Intermediate ADR-Headach Verified 09/01/24 14:55 e azathioprine [From Imuran] Allergy pancreatiti Verified 09/01/24 14:55 s metronidazole [From Flagyl] Allergy Unknown Verified 09/01/24 14:55 isosorbide AdvReac Severe headache Verified 09/01/24 14:55 Review of Systems General: Reports: 10 or more systems reviewed and unremarkable except in HPI and below Eyes: Denies: change in vision ENMT: Denies: throat pain Card: Denies: chest pain, edema or syncope Resp: Denies: dyspnea or productive cough GI: Denies: abdominal pain, vomiting or diarrhea : Denies: flank pain, dysuria or urinary frequency Skin/Breast: Denies: rash or erythema Neuro: Denies: numbness in extremities, weakness in extremities, lack of coordination or difficulty walking PFSH ED PFSH: Medical History Vitamin D deficiency Hx of Crohn's disease Osteopenia GERD (gastroesophageal reflux disease) Surgical History History of cholecystectomy History of neck surgery Family History Father CAD (coronary artery disease) Dementia Stroke Mother CAD (coronary artery disease) Family/Other Cancer Denies family history of Diabetes Clotting disorder Chronic kidney disease (CKD) Suicide Anesthesia complication Bleeding disorder Lung disease Social History Smoking and tobacco/nicotine status: former use of tobacco/nicotine Alcohol intake: never Substance/Drug Use: never Physical Exam Narrative: EXAM NARRATIVE: Patient is well-appearing and nontoxic. No meningeal signs in the neck or with flexion of the hips and knees. No rashes or wounds. Heart rate is borderline elevated in the 90s. Pulses easily palpable on the radial. No sinus tenderness on percussion. Voice is slightly congested. No neck swelling. Lungs are clear to auscultation bilaterally. The patient does seem anxious. He endorses anxiety when coming to the doctor. Abdominal exam is benign. No extremity swelling, redness, or pain with passive range of motion of the joints. Const: COMMON NORMALS: no limitations, alert and well nourished EXAM LIMITATIONS: no altered mental status HENMT: COMMON NORMALS: normocephalic, atraumatic and external ears normal HEAD & SCALP: normocephalic and atraumatic EXTERNAL EAR: Yes external ears normal MOUTH: no muffled voice Eye: COMMON NORMALS: EOMs intact bilaterally, conjunctivae normal and no scleral icterus CONJUNCTIVA: Yes conjunctivae normal Neck/C-Spine: COMMON NORMALS: no JVD GENERAL: Yes normal visual inspection and Yes trachea midline Resp: COMMON NORMALS: normal respiratory effort, No use of accessory muscles and clear to auscultation bilaterally AUSCULTATION: clear to auscultation bilaterally Cardio: COMMON NORMALS: no JVD, regular rate and regular rhythm RATE: regular rate RHYTHM: regular rhythm GI: COMMON NORMALS: Soft to palpation and non-tender PALPATION: Yes Soft to palpation and No Guarding due to palpation present (GI) Extremity: COMMON NORMALS: normal to inspection Neuro: COMMON NORMALS: moves all extremities, no focal motor deficits and no sensory deficits noted SENSORIUM/ORIENTATION: Yes alert SPEECH: speech normal Psych: COMMON NORMALS: mental status grossly normal, Normal thought process present, cooperative and speech normal SPEECH: Yes normal speech THOUGHT PROCESS: Normal thought process present Skin: COMMON NORMALS: no rashes or lesions noted, turgor normal and no jaundice GENERAL SKIN EXAM: no rashes or lesions noted and turgor normal Course Vital Signs: Vital signs: Vital Signs Temperature 98.1 F 11/15/24 08:15 Pulse Rate 103 H 11/15/24 08:15 Respiratory Rate 17 11/15/24 08:15 Blood Pressure 154/86 11/15/24 09:04 Pulse Oximetry 95 11/15/24 08:15 Oxygen Delivery Me thod Room Air 11/15/24 08:15 MDM - Fever Medical Decision Making Patient presents with headache, fever, nasal congestion, dry cough. Low suspicion for meningitis, sepsis, pneumonia. Suspect viral respiratory illness. Fever is down. Heart rate is improving now in the low 90s. Blood pressure is up and the patient has an anxious affect. He does endorse whitecoat syndrome. I am going to go ahead and give him a dose of clonidine to help both with his blood pressure and anxiety. We talked about options including testing for viral illnesses and whether or not he would want to take any antivirals if positive. Patient could not make up his mind. Ultimately we decided to go ahead and test for flu and COVID. I am also going to give him a dose of Afrin to help with his congestion. This could potentially raise his blood pressure temporarily but since were not worried about a hypertensive emergency, I think the benefits outweigh the risk. At this point he does not need chest x-ray or blood work. Patient's previous creatinine was 1.2 in July. I may to order a low-dose of naproxen to see if we can help with his headache. As mentioned previously, he is already taken Tylenol this morning. Update 9:40 AM Patient is COVID-positive and flu negative. I discussed Paxlovid with the patient and his . We discussed risk benefits and alternatives as well as emergency authorization utilization criteria. The patient reports he would like to decline using this medication. He also declines any nausea medication for home. Patient is stable for discharge. Lab Data Laboratory Results Influenza Type A Ag Negative (Negative) 11/15/24 08:45 Influenza Type B Ag Negative (Negative) 11/15/24 08:45 SARS-CoV-2 Ag (Rapid) Positive (Negative) H 11/15/24 08:45 No radiology studies performed this visit Discharge Plan Discharge Patient Disposition: Home Clinical Impression: COVID-19 Condition: Stable Prescriptions: No Action finasteride 5 mg tablet 5 mg PO DAILY acetaminophen [Tylenol Arthritis Pain] 650 mg tablet extended release 1,300 mg PO Q12H PRN (Reason: Pain) omeprazole 20 mg capsule,delayed release(DR/EC) 20 mg PO QAM aspirin 81 mg tablet,delayed release (DR/EC) 81 mg PO DAILY levothyroxine 25 mcg tablet 25 mcg PO DAILY Qty: 30 1RF metoprolol succinate 25 mg tablet extended release 24 hr 12.5 mg PO DAILY Qty: 35 3RF Vitamin D3 50 mcg (2,000 unit) Tablet 50 mcg PO DAILY Probiotic 3 billion cell Capsule 3,000 mmu cells PO BID Rx Instructions: administer with a meal atorvastatin 20 mg tablet 20 mg PO DAILY Qty: 30 1RF Discharge Orders: Discharge ED (Routine); Ordered 11/15/24 Ordered By: Bereket Payan Referrals: Vaughn Silva, [Primary Care Provider] - Patient Instructions: COVID-19: Slow the Coronavirus Spread (ED), Face Coverings (Masks) and COVID-19 (ED) Coding Level of Care Code 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
[2024-11-15] MEDS: ondansetron 4 MG Tablet PO (09:03)
[2024-11-15 09:04] VITALS: BP 154/86
[2024-11-15] MEDS: oxymetazoline 0.05% Nasal Spray 15 mL 2 SPRAY NOSTRIL-B (09:04)
[2024-11-15] MEDS: naproxen 500 mg Tablet 250 MG PO (09:04)
[2024-11-15] MEDS: cloNIDine 0.1 mg Tablet PO (09:04)
[2024-11-15 09:25] LABS: SARS Covid-2 Antigen Positive (Negative)
[2024-11-15 09:26] LABS: Influenza A by IFA Negative (Negative); Influenza B by IFA Negative (Negative)
[2024-11-15 10:03] VITALS: BP 138/76; PULSE 77; RESP 18; O2SAT 94
== END 2024-11-15 10:05 | disposition home or self-care (01) ==
PROVIDERS: Emergency Provider Emergency Medicine; PCP Electrodiagnostic Medicine
DX: U07.1 COVID-19 (principal); Z87.891 Personal history of nicotine dependence; Z11.52 Encounter for screening for COVID-19
CPT/HCPCS: 87426; 87804; 99283; Q0162

== ENCOUNTER 2024-11-17 01:01 | Emergency (ER) | payer MEDICARE, OTHER, SELFPAY ==
[2024-11-17 01:07] VITALS: BP 144/68; PULSE 88; RESP 18; TEMP 36.8; O2SAT 96
[2024-11-17 02:00] VITALS: BP 144/68; PULSE 88; RESP 18; TEMP 36.8; O2SAT 96
--- NOTE | 2024-11-17 02:42 | ED_ITS ---
HPI - General Adult General: Chief complaint: Upper Respiratory Infection Stated complaint: Covid +\Chest Hurts Time Seen by Provider: 11/17/24 02:35 History of Present Illness: Patient presents to the ER with complaints of a sore throat. He says been coughing a lot and his throat hurts bad. He was diagnosed with COVID on Saturday. He has not tried any gargles rinses or swish and swallows. Related Data Home Medications Medication Instructions Recorded Confirmed acetaminophen 650 mg 1,300 mg PO Q12H PRN Pain 11/22/20 09/01/24 tablet,extended release (Tylenol Arthritis Pain) finasteride 5 mg tablet 5 mg PO DAILY 11/22/20 09/01/24 omeprazole 20 mg capsule,delayed 20 mg PO QAM 11/22/20 09/01/24 release cholecalciferol (vitamin D3) 50 50 mcg PO DAILY 07/24/24 09/01/24 mcg (2,000 unit) tablet (Vitamin D3) lactobacillus combination no.4 3 3,000 mmu cells PO BID 07/24/24 09/01/24 billion cell capsule (Probiotic) aspirin 81 mg tablet,delayed 81 mg PO DAILY 08/05/24 09/01/24 release Previous Rx's Medication Instructions Recorded atorvastatin 20 mg tablet 20 mg PO DAILY #30 tabs 07/24/24 levothyroxine 25 mcg tablet 25 mcg PO DAILY #30 tabs 08/20/24 metoprolol succinate 25 mg 12.5 mg (1/2 x 25 mg) PO DAILY #35 09/01/24 tablet,extended release 24 hr tabs Allergies Allergy/AdvReac Type Severity Reaction Status Date / Time lisinopril Allergy Intermediate ADR-Headach Verified 11/17/24 01:11 e azathioprine [From Imuran] Allergy pancreatiti Verified 11/17/24 01:11 s metronidazole [From Flagyl] Allergy Unknown Verified 11/17/24 01:11 isosorbide AdvReac Severe headache Verified 11/17/24 01:11 Review of Systems General: Reports: 10 or more systems reviewed and unremarkable except in HPI and below PFSH ED PFSH: Medical History Vitamin D deficiency Hx of Crohn's disease Osteopenia GERD (gastroesophageal reflux disease) Surgical History History of cholecystectomy History of neck surgery Family History Father CAD (coronary artery disease) Dementia Stroke Mother CAD (coronary artery disease) Family/Other Cancer Denies family history of Diabetes Clotting disorder Chronic kidney disease (CKD) Suicide Anesthesia complication Bleeding disorder Lung disease Social History Smoking and tobacco/nicotine status: former use of tobacco/nicotine Alcohol intake: never Substance/Drug Use: never Physical Exam Const: COMMON NORMALS: no acute distress, average body habitus, patient oriented x3, no limitations, healthy appearing, alert and well nourished HENMT: COMMON NORMALS: normocephalic, atraumatic, hearing grossly normal bilaterally, external ears normal, Normal external nose present and moist oral mucous membranes HEAD & SCALP: normocephalic and atraumatic NOSE: Normal external nose present EXTERNAL EAR: Yes external ears normal Neck/C-Spine: COMMON NORMALS: full ROM, no lymphadenopathy, supple, no meningeal signs, no JVD and Thyroid normal THYROID: Thyroid normal Chest: COMMONS NORMALS: normal inspection of the chest and normal palpation of entire chest wall Resp: COMMON NORMALS: normal respiratory effort, No retractions, No use of accessory muscles and clear to auscultation bilaterally AUSCULTATION: clear to auscultation bilaterally Cardio: COMMON NORMALS: no JVD, regular rate, regular rhythm, S1 normal heart sound present, S2 normal heart sound present, No gallops present (Cardio), No clicks present (Cardio), No murmurs present (Cardio) and No rub (Cardio) RATE: regular rate RHYTHM: regular rhythm HEART SOUNDS: S1 normal heart sound present and S2 normal heart sound present Neuro: COMMON NORMALS: patient oriented x3 SENSORIUM/ORIENTATION: Yes alert MENINGEAL SIGNS: Yes no meningeal signs Course Vital Signs: Vital signs: Vital Signs Temperature 98.2 F 11/17/24 01:07 Pulse Rate 88 11/17/24 01:07 Respiratory Rate 18 11/17/24 01:07 Blood Pressure 144/68 11/17/24 01:07 Pulse Oximetry 96 11/17/24 01:07 Oxygen Delivery Me thod Room Air 11/17/24 01:07 MDM - General Adult Medical Decision Making Patient was given 5 mL of viscous lidocaine for swish and swallow to anesthetize the throat. Patient was instructed to use Cepacol throat lozenges or Chloraseptic spray for future use. Medical Records I reviewed the patient's medical records. Lab Data I reviewed the patient's lab results. No radiology studies performed this visit Discharge Plan Discharge Patient Disposition: Home Clinical Impression: Pharyngitis Qualifiers: Pharyngitis/tonsillitis etiology: unspecified etiology Qualified Code(s): J02.9 - Acute pharyngitis, unspecified Condition: Stable Prescriptions: No Action finasteride 5 mg tablet 5 mg PO DAILY acetaminophen [Tylenol Arthritis Pain] 650 mg tablet extended release 1,300 mg PO Q12H PRN (Reason: Pain) omeprazole 20 mg capsule,delayed release(DR/EC) 20 mg PO QAM aspirin 81 mg tablet,delayed release (DR/EC) 81 mg PO DAILY levothyroxine 25 mcg tablet 25 mcg PO DAILY Qty: 30 1RF metoprolol succinate 25 mg tablet extended release 24 hr 12.5 mg PO DAILY Qty: 35 3RF Vitamin D3 50 mcg (2,000 unit) Tablet 50 mcg PO DAILY Probiotic 3 billion cell Capsule 3,000 mmu cells PO BID Rx Instructions: administer with a meal atorvastatin 20 mg tablet 20 mg PO DAILY Qty: 30 1RF Discharge Orders: Discharge ED (Routine); Ordered 11/17/24 Ordered By: Alexis Edward Referrals: Vaughn Silva, [Primary Care Provider] - 1 week Patient Instructions: Pharyngitis (ED) Activity Restrictions/Additional Instructions: You were given viscous lidocaine in the ER as a swish and swallow to help anesthetize your sore throat. Please lease picker some Chloraseptic lozenges or throat spray both are [id number] and will do similar effects as the lidocaine. Please follow-up with your family practice physician within next 7 days for further evaluation if needed. 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
[2024-11-17] MEDS: lidocaine 2% viscous 15 mL UDC 5 ML MUCOUS MEM (02:52)
[2024-11-17 02:58] VITALS: BP 162/81; PULSE 83; O2SAT 94
== END 2024-11-17 02:59 | disposition home or self-care (01) ==
PROVIDERS: Emergency Provider Emergency Medicine; PCP Electrodiagnostic Medicine
DX: J02.9 Acute pharyngitis, unspecified (principal); Z87.891 Personal history of nicotine dependence
CPT/HCPCS: 99283

== ENCOUNTER → 2025-01-29 08:38 | Outpatient (BNVA) | payer OTHER, SELFPAY | PROVIDERS: PCP Electrodiagnostic Medicine; Visit Provider Nurse Practitioner Family | DX: R06.00 Dyspnea, unspecified (principal); R53.83 Other fatigue; I10 Essential (primary) hypertension; E78.5 Hyperlipidemia, unspecified; I44.7 Left bundle-branch block, unspecified; R00.1 Bradycardia, unspecified; I25.10 Atherosclerotic heart disease of native coronary artery without angina pectoris | CPT/HCPCS: 99214 ==

== ENCOUNTER 2025-02-01 10:06 | Outpatient (CLI) | payer MEDICARE, OTHER, SELFPAY ==
[2025-02-01 10:49] LABS: Anion Gap 12.1 (5-19); Blood Urea Nitrogen 13 mg/dL (8-23); Calcium 9.2 mg/dL (8.5-10.5); Carbon Dioxide 26 mmol/L (22-29); Chloride 104 mmol/L (98-107); Glucose 110 mg/dL (65-115); Osmolality Calculated 287 mOsm/kg (285-295); Potassium 4.1 mmol/L (3.5-5.1); Sodium 138 mmol/L (136-145)
== END 2025-02-01 10:07 | disposition home or self-care (01) ==
LOC: LAB 10:08
PROVIDERS: PCP Electrodiagnostic Medicine; Visit Provider Nurse Practitioner Family
DX: I65.29 Occlusion and stenosis of unspecified carotid artery (principal)
CPT/HCPCS: 36415; 80048

== ENCOUNTER 2025-02-08 07:48 | Outpatient (CLI) | payer OTHER, SELFPAY ==
--- NOTE | 2025-02-08 08:00 | CT_ITS ---
WS: [id number] CTA HEAD AND NECK TECHNIQUE: Contrast enhanced CTA of the head and neck with coronal and sagittal reformatted images and maximum intensity projection (MIP) images. NASCET criteria utilized. CLINICAL INFORMATION: carotid stenosis, TIA COMPARISON: None. DLP: 1339.[address] scans at [facility] use at least one of these dose optimization techniques: automated exposure control; mA and/or kV adjustment per patient size (includes targeted exams where dose is matched to clinical indication); or iterative reconstruction. FINDINGS: No evidence intracranial hemorrhage or mass effect. Ventricular system and basilar cisterns are patent. Vascular calcification. Mild small vessel changes. Moderate parenchymal volume loss. RIGHT: No significant RIGHT ICA stenosis. Moderate calcified plaque LEFT: LEFT ICA stenosis measures 42%. Moderate calcified irregular atheromatous plaque LEFT carotid bulb extending into the ICA LEFT dominant vertebral artery. Tiny RIGHT vertebral artery ends in PICA. Bovine arch. Proximal subclavian arteries are patent. INTRACRANIAL CTA: Basilar artery is patent. Normal vascularity to the Z [employer] territories bilaterally. Both ICAs are patent at the skull base. Small LEFT A1 segment. Normal vascularity to the MARCELL and MCA territories bilaterally. No evidence of proximal flow-limiting stenosis. Decompressive laminectomies cervical spine. CT/CT angio headneck* [id number] IMPRESSION: 1. LEFT ICA stenosis measures 42% 2. No significant RIGHT ICA stenosis. 3. No flow-limiting intracranial stenosis.
[2025-02-08] MEDS: iohexol 350 mg/mL 500 mL Btl (per mL) IV (08:25)
== END 2025-02-08 07:49 | disposition home or self-care (01) ==
PROVIDERS: PCP Electrodiagnostic Medicine; Visit Provider Nurse Practitioner Family
DX: I65.23 Occlusion and stenosis of bilateral carotid arteries (principal); I67.2 Cerebral atherosclerosis; R93.0 Abnormal findings on diagnostic imaging of skull and head, not elsewhere classified; G31.89 Other specified degenerative diseases of nervous system; Z98.890 Other specified postprocedural states
CPT/HCPCS: 70496; 70498

== ENCOUNTER 2025-10-03 22:01 | Emergency (ER) | payer MEDICARE, OTHER, SELFPAY ==
--- OUTSIDE RECORDS SUMMARY | 2024-08-13 11:00 | XMS_ITS ---
Author Organization [facility] Address [address] [place] [address] Care Team Providers Care Chief Chemist Name Role Phone Vaughn Silva Primary Care Provider CAROLINE Livingston [phone] REASON FOR VISIT 6 mo w/ ua/pvr/ipss/psa Encounters Encounter Location Date Provider Diagnosis [facility] [address] [facility] [place] [address] 08/13/2024 CAROLINE MARINELLI Plan Of Treatment Next Appt Details Provider Name:Jac Bustamante, 10/07/2025 11:20:00 AM, [address] [place], [address], Provider Name:CAROLINE Longoria, 10/25/2025 10:00:00 AM, [address] [place], [address], Progress Notes * Chinmay [place] WDOB:[birth year] (80 yo M)Acc No.[id number]:08/13/2024 Progress Notes Patient: Jethro Chinmay SIERRA Provider: Iraj MARINELLI MD :1945 A ge:79 Y S ex:Male Date:08/13/2024 Address:[address] [place], [place] [id number] Pcp:Vaughn Silva Subjective: * Chief Complaints: * 1 . 6 mo w/ ua/pvr/ipss/psa. 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
[2025-10-03 22:05] VITALS: BP 164/78; PULSE 64; RESP 18; TEMP 36.3; O2SAT 94
[2025-10-03 22:12] VITALS: BP 147/66; PULSE 61; O2SAT 94
--- OUTSIDE RECORDS SUMMARY | 2025-10-03 22:12 | XMS_ITS | Patient Health Record ---
Author Organization [facility] Address [address] [place] [address] Care Team Providers Care Sales/Marketing Name Role Phone Vaughn Silva DO Primary Care Provider Unavail able Lonnie Low Unavailable [phone] [place], Warden Unavailable Unavailable Allergies Allergen (clinical drug ingredient) Drug/Non Drug Allergy documented on EMR Reaction Allergy Type Onset Date Status Information temporarily unavailable Imuran Unknown Drug Allergy Active Reason For Referral No Information Medications Medication SIG (Take, Route, Frequency, Duration) Notes Start Date End Date Status Fiber 28.3 % Powder as directed Orally Active Atorvastatin Calcium 20 MG Tablet TAKE 1 TABLET BY MOUTH ONCE DAILY Oral; Duration: 30 Days Active Finasteride 5 MG Tablet 1 tablet Orally Once a day Active Metoprolol Tartrate 25 MG Tablet 0.5 tablet Orally daily Acti ve Acetaminophen 325 MG Tablet 1 tablet as needed Orally every 4 hrs Active Vitamin D3 50 MCG (1999) Capsule 1 capsule Orally Once a day Active Omeprazole 20 MG Capsule Delayed Release 1 capsule 30 minutes before morning meal Orally Once a day Active Levothyroxine Sodium 25 MCG Tablet TAKE 1 TABLET BY MOUTH ONCE DAILY Oral; Duration: 14 Days Active prednisoLONE Acetate 1 % Suspension 1 drop into affected eye Ophthalmic Twice a day Active Social History Tobacco Use: Social History Observation Description Date Details (start date - stop date) Never Smoker NA - NA Social History Drugs/Alcohol: Social Info Question Answer Notes Drugs Have you used drugs other than those for medical reasons in the past 12 months? No Tobacco Use: Social Info Question Answer Notes Tobacco Control (Standard) Tobacco use: Nonsmoker Problems Problem Type SNOMED Code ICD Code Onset Dates Problem Status W/U Status Risk Notes Problem Information temporarily unavailable Crohn''s disease of large intestine without complication (K50.10) Active confirmed Problem Information temporarily unavailable Crohn's disease of colon without complication (K50.10) Active confirmed Problem Information temporarily unavailable History of colon polyps (Z86.010) Active confirmed Problem Information temporarily unavailable Crohn's disease without complication, unspecified gastrointestinal tract location (K50.90) Active confirmed Problem Information temporarily unavailable Gastroesophageal reflux disease with esophagitis without hemorrhage (K21.00) Active confirmed Plan Of Treatment No Information Insurance Providers Payer Name Payer Address Payer Phone Subscriber Number Group Number Insured Name Patient Relationship to Insured Coverage Start Date Coverage End Date [place] Medicare [address] JOSSELINE BETANCUR [phone] [id number] Chinmay Rangel Self - patient is the insured 2 [place] Insurance [address] [address] JORJE CHISHOLM [phone] [id number] Chinmay Rangel Self - patient is the insured 2 [employer] [address] [place] [phone] [id number] Chinmay Rangel Self - patient is the insured Medical (General) History Medical History History ICD Code measles mumps chicken pox arthritis migraine back trouble hypertension hemorrhoids cataracts colon polyps crohn's GERD irritable bowel syndrome pancreatitis Surgical History Surgery Date(Month/Year) laminectomy c-2--c7 2019 cholecystectomy 1985 Hospitalization History Reason Date(Month/Year) see surgery list pancreatitis due to Imuran allergy crohn's
--- OUTSIDE RECORDS SUMMARY | 2025-10-03 22:12 | XMS_ITS | Data Portability ---
Author Organization [facility] [place] [facility], .[place], [facility] Address [address] [place] [address] Care Team Providers Care Joint Runner Name Role Phone MAURA IVY Primary Care Provider Unavailabl e Assessment Encounter Date Assessment Date Assessment LastModified by Organization Details LastModified Time 10/13/2024 10/13/2024 Document scribed by Samantha Anibe. I was present during interview and exam. I have reviewed and agree with above documentation. Dr. Maura Ivy. [email or web address] Not available 10/13/2024 09:05:56 04/05/2025 04/05/2025 A Care Coordination Assessment form was filled out as part of this patient's office visit today. [email or web address] Not available 04/05/2025 21:43:39 09/14/2025 09/14/2025 Document scribed by Samantha An Scribe. I was present during interview and exam. I have reviewed and agree with above documentation. Dr. Maura vIy. [email or web address] Not available 09/14/2025 17:27:56 Plan of Treatment Reminders Order Date Submit Date Provider Last Modified By Organization Details Last Modified Time Details Appointments None recorded. Lab culture, urine 2024 025 [email or web address] [facility], [address] [facility] [address] [place], [address], 21:48:49 urinalysis, dipstick 2024 025 [facility] ([facility]), [address] [place], [address], 5 10:13:27 Referral None recorded. Procedures injection, sacroiliac joint (PROC) 2024 025 [place] [address] 2 [facility], [address] [place], [place] [address], [address], [place], [address], 5 13:59:39 Surgeries None recorded. Imaging XR, ribs, unilateral, w/ PA chest 2024 025 [facility] ([facility]), [address] [place] [address], [address], 5 09:48:30 XR, hip, unilateral, 2 or 3 view [address] ([facility]), [address] [place] [address], [address], 5 13:45:10 Medication Orders tramadol 50 mg tablet 2024 025 [facility], [address], [place], [address], 5 17:45:20 nitrofurant oin monohydrate /macrocryst als 100 mg capsule 2024 025 [facility], [address], [place], [address], 5 05:01:10 Kenalog 40 mg/mL suspension for injection 2024 025 [email or web address] Not available 17:37:56 azithromyci n 250 mg tablet 2023 025 [facility], [address], [place], [address], 16:35:47 prednisone 20 mg tablet 2023 025 [facility], [address], [place], [address], 16:35:55 amoxicillin 500 mg capsule 2023 025 [facility], [address], [place], [address], 16:35:42 Patient TargetsNo targets recorded. Patient InstructionsNo instructions recorded. Reason for Referral None Reported. Results Created Date Observation Date Name Description Value Unit Range Abnormal Flag Note LastModifiedBy Organization Detail LastModifiedTime 05/21/2005/22/2025 CULTU RE, URINE , ROUTI NE culture, urine, routine SEE NOTE CULTU RE, URINE , ROUTI NE Micro Numbe r: [id number] Test Statu s: Final Speci men Sourc e: Urine , clean catch Speci men Quali ty: Adequ ate Resul t: No Growt h Not Available [facility] [address] [place], [address], 05/22/2025 21:48:49 05/21/20 25 05/21/2025 urina lysis , dipst ick Color Yellow Not Available [facility] ([facility]) [address] [place] [address], [address], 05/21/2025 10:03:55 05/21/20 25 05/21/2025 urina lysis , dipst ick Appearance Slight ly Cloudy Not Available [facility] ([facility]) [address] [place], [address], 05/21/2025 10:03:55 05/21/20 25 05/21/2025 urina lysis , dipst ick Glucose Negati ve Not Available [facility] ([facility]) [address] [place], [address], 05/21/2025 10:03:55 05/21/20 25 05/21/2025 urina lysis , dipst ick Bilirubin Negati ve Not Available [facility] ([facility]) [address] [place], [address], 05/21/2025 10:03:55 05/21/20 25 05/21/2025 urina lysis , dipst ick Ketone Negati ve Not Available [facility] ([facility]) [address] [place], [address], 05/21/2025 10:03:55 05/21/20 25 05/21/2025 urina lysis , dipst ick Specific Reynolds 1.010 Not Available [facility] ( [facility]) [address] [place], [address], 05/21/2025 10:03:55 05/21/20 25 05/21/2025 urina lysis , dipst ick Blood Non-He molyze d: Trace Not Available [facility] ([facility]) [address] [place], [address], 05/21/2025 10:03:55 05/21/20 25 05/21/2025 urina lysis , dipst ick pH 6.0 Not Available [facility] ([facility]) [address] [place], [address], 05/21/2025 10:03:55 05/21/20 25 05/21/2025 urina lysis , dipst ick Protein Negati ve Not Available [facility] ([facility]) [address] [place], [address], 05/21/2025 10:03:55 05/21/20 25 05/21/2025 urina lysis , dipst ick Urobilinogen .2 Not Available [facility] ([facility]) [address] [place], [address], 05/21/2025 10:03:55 05/21/20 25 05/21/2025 urina lysis , dipst ick Nitrite negati ve Not Available [facility] ([facility]) [address] [place], [address], 05/21/2025 10:03:55 05/21/20 25 05/21/2025 urina lysis , dipst ick Leukocytes Negati ve Not Available [facility] ([facility]) [address] [place], [address], 05/21/2025 10:03:55 04/06/20 25 04/05/2025 XR, hip, unila teral , 2 or 3 view No observ ation record ed. [email or web address] [facility] [address] [place], [address], 04/22/2025 14:01:37 09/16/20 25 09/14/2025 XR, ribs, unila teral , w/ PA chest No observ ation record ed. [facility] [address] [place], [address], 09/16/2025 13:40:06 Result Notes None recorded. Problems Name Problem SNOMED Code Status Onset Date Resolution Date Notes Provider Name and Address Organization Details Recorded Time Chronic ulcerativ e colitis 752760853 Active 2022 Chronic Ulcerative Colitis; 12/11/2022 7:30AM by Carline hCang, Office Visit; Promoted; acuity set as *; Not Available [facility] 3 03:13:37 Allergic rhinitis 49362843 Active 2022 Allergic Rhinitis; 12/11/2022 7:30AM by Carline Chang, Office Visit; Promoted; acuity set as *; Not Available [facility] 3 03:13:38 Cholecyst ectomy Active 2022 Cholecyste ctomy; 12/11/2022 7:30AM by Carline Chang, Office Visit; Promoted; acuity set as *; Not Available [facility] 3 03:13:42 Crohn's disease 72682716 Active 2022 Crohn's Disease; 12/11/2022 7:30AM by Carline Chang, Office Visit; Promoted; acuity set as *; CD (CROHN'S DISEASE) (Establish ed Diagnosis) ; Impression : Flair. Counseled on fiber supplement , probiotic. ; Recorded 12/11/2022 7:30AM by Carline Chang, Office Visit; Promoted; acuity set as *; Not Available [facility] 3 03:13:42 Colonosco py Active 2022 Colonoscop y; 09-08; 12/11/2022 7:30AM by Carline Chang, Office Visit; Promoted; acuity set as *; Not Available [facility] 3 03:13:42 Benign paroxysma l positiona l vertigo 179987484 Active 2022 Kirill Noonan MD [address] [place] [address], [address] , [facility] 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 3 16:50:28 Low back pain 551510989 Active 2022 Maura Ivy DO [address] [place] [address], [address] , [facility] 3 16:50:30 Paroxysma l tachycard ia 29190579 Active 2023 Maura Ivy DO [address] [place] [address], [address] , [facility] 4 08:52:16 Mixed hyperlipi demia 160614624 Active 2023 Maura Ivy [address], [address] [place] [address] , [facility] 4 08:52:18 Transient cerebral ischemia 713816920 Active 2023 Mark ortega, [facility] 4 13:10:21 Hyperglyc emia 32312263 Active 2023 Mark Booth null, [facility] 4 13:10:23 Chronic sacroilia c joint pain 664308495 Active 2024 Maura Ivy [address], [address] [place] [address] , [facility] 5 17:21:41 Pain of hip region 62917822 Active [address], [address] [place] [address] , [facility] 5 17:21:43 Problem Notes None recorded. Procedures Surgical History Date Name Laterality Status Provider Name and Address Organization Details Recorded Time 04/05/20 25 Joint Inj Beta-elbow, wrist completed Maura Ivy [address], [address] [place] [address], [facility] 04/05/2025 21:36:04 Cholecystectomy completed Torie Brown [facility] 10/05/2024 08:21:19 Imaging Results None recorded. Procedure Notes None recorded. Medical Equipment None Reported. Allergies Allergen ID Allergen Name Allergen Category Reaction Reaction Severity Criticality Documentation Date Start Date Code Code System Note Provider Name and Address Organization Details Recorded Time 60081 Substance with sulfonami de structure and antibacte rial mechanism of action (substanc e) medicatio n Not available Not available Not available 06/01/2023 69476 4582 SNOMED Comme nt: Recor ded 12/11 7:30A M by Dian green, Offic e Visit ; Consuelo bhagat; Chata watkins ce: *; ; Not Available [facility] 3 02:25:34 Medications Name Sig Start Date Stop Date Status Note LastModified by Organization Details LastModified Time amoxicill in 500 mg capsule Take 2 capsules twice a day by oral route for 10 days. 04/05 completed Not Available Not Available Not Available atorvasta tin 20 mg tablet TAKE 1 TABLET BY MOUTH ONCE DAILY active Not Available Not Available No t Available azithromy mei 250 mg tablet TAKE 2 TABLETS (500 MG) BY ORAL ROUTE ONCE DAILY FOR 1 DAY THEN 1 TABLET (250 MG) BY ORAL ROUTE ONCE DAILY FOR 4 DAYS 04/05 completed Not Available Not Available Not Available prednison e 20 mg tablet Take 2 tablets every day by oral route for 7 days. 04/05 completed Not Available Not Available Not Available clopidogr el 75 mg tablet Take 1 tablet every day by oral route for 30 days, for stroke.. 2023 active Not Available Not Available Not Avai lable tramadol 50 mg tablet TAKE 1 TABLET BY MOUTH THREE TIMES DAILY NEEDED FOR PAIN active Not Available Not Available No t Available levothyro xine 25 mcg tablet TAKE 1 TABLET BY MOUTH ONCE DAILY active Not Available Not Available No t Available Kenalog 40 mg/mL suspensio n for injection Take 40 mg by injectio n route. 09/14 completed Not Available Not Available Not Available meclizine 25 mg tablet TAKE 1 TABLET BY MOUTH THREE TIMES DAILY 05/14 completed Not Available Not Available Not Available baclofen 10 mg tablet Take 1 tablet 3 times a day by oral route as needed. 12/03 completed Not Available Not Available Not Available lisinopri l 10 mg tablet TAKE 1 TABLET BY MOUTH ONCE DAILY active Not Available Not Available No t Available omeprazol e 20 mg capsule,d elayed release Take 1 capsule every day by oral route. active Not Available Not Available No t Available doxazosin 4 mg tablet TAKE 1 TABLET BY MOUTH ONCE DAILY active Not Available Not Available No t Available metoprolo l succinate ER 25 mg tablet,ex tended release 24 hr Take 1 tablet every day by oral route. active Not Available Not Available No t Available finasteri de 5 mg tablet Take 1 tablet every day by oral route. active Not Available Not Available No t Available diazepam 5 mg tablet TAKE 1 TAB BY MOUTH 20 MINUTES PRIOR TO PROCEDUR E, REPEAT ONCE IF NEEDED 10/05 completed Not Available Not Available Not Available nitrofura ntoin monohydra te/macroc rystals 100 mg capsule Take 1 capsule every 12 hours by oral route for 7 days. 06/04 completed Not Available Not Available Not Available omeprazol e 12/03 completed 15345; Recorded 10/10/20 22 11:24AM by Mark Booth (Authori alysha through Maura Ivy DO), Office Visit; Not Available Not Available Not Available baclofen up to 3 times a day as needed for pain and muscle spasm 12/03 completed Recorded 12/11/19 23 7:47AM by Maura Ivy DO, Office Visit; Refill Quantity : 35; Tablet; Not Available Not Available Not Available metoprolo l succinate 12/03 completed 26943; Recorded 10/10/20 22 11:23AM by Mark Booth (Authori alysha through Maura Ivy DO), Office Visit; Not Available Not Available Not Available peg 3350-elec trolytes 236 gram-22.7 4 gram-6.74 gram-5.86 gram solution TAKE DIRECTED BY OFFICE 09/15 completed Not Available Not Available Not Available Paxlovid 300 mg (150 mg x 2)-100 mg tablets in a dose pack Take 1 tablet twice a day by oral route for 5 days. 04/05 completed Not Available Not Available Not Available Vitals Date Recorded Body height Body mass index (BMI) Body weight Oxygen saturation Heart rate Respiratory rate Systolic And Diastolic Provider Name and Address Organization Details Last Updated DateTime 193.04 cm 26.3 kg/m2 41338.6 5 g 97 % 78 /min 18 /min 136/88 mm[Hg] Kathy Morgan [facility] 5 16:36:48 Date Recorded Body height Body mass index (BMI) Body weight Body temperature Heart rate Oxygen saturation Systolic And Diastolic Provider Name and Address Organization Details Last Updated DateTime 5 193.04 cm 25.7 kg/m2 46674.7 9 g 98.4 [degF] 65 /min 97 % 130/80 mm[Hg] Neha Iqbal [facility] 5 10:10:21 Date Recorded Body height Body mass index (BMI) Body weight Oxygen saturation Heart rate Respiratory rate Systolic And Diastolic Provider Name and Address Organization Details Last Updated DateTime 5 193.04 cm 26.6 kg/m2 01931.2 4 g 97 % 72 /min 18 /min 130/76 mm[Hg] Kathy Morgan [facility] 5 17:16:55 Date Recorded Body height Body mass index (BMI) Body weight Oxygen saturation Heart rate Respiratory rate Body temperature Systolic And Diastolic Provider Name and Address Organization Details Last Updated DateTime 4 193.04 cm 26.7 kg/m2 09534.7 3 g 98 % 63 /min 18 /min 98 [degF] 108/74 mm[Hg] Torie Brown [facility] 4 08:19:01 Date Recorded Body height Body mass index (BMI) Body weight Oxygen saturation Heart rate Respiratory rate Body temperature Systolic And Diastolic Provider Name and Address Organization Details Last Updated DateTime 4 193.04 cm 26.7 kg/m2 83836.8 3 g 98 % 61 /min 18 /min 97.9 [degF] 120/62 mm[Hg] Kathy Cathy [facility] 4 08:47:33 Social History Question Answer Notes LastModified by Organizat ion Details LastModified Time Tobacco Smoking Status Never [facility] 10/05/2024 08:21:00 What Was The Date Of Your Most Recent Tobacco Screening? 05/21/2025 [email or web address] Information not available 05/21/2025 Sex: Unknown Functional Status Question Answer Note LastModified by Organizat ion Details LastModified Time Do you use any illicit or recreational drugs? No [email or web address] Information not available 05/14/2023 Do you or have you ever used any other forms of tobacco or nicotine? No [email or web address] Information not available 05/14/2023 What is your level of alcohol consumption? None [email or web address] Information not available 05/14/2023 Mental Status None recorded. Family History Nothing Reported. Medical History No medical history recorded. Immunizations Vaccine Type Date Status Note Provider Nam e and Address Organization Details Recorded Time Influenza, split virus, trivalent, preservative 3 completed [facility] 10/13/2024 08:47:38 Influenza, high-dose, quadrivalent, PF 1 completed Kathy Morgan [facility] 09/15/2024 15:58:26 Influenza, high-dose, quadrivalent, PF 2 completed Kathy Morgan [facility] 09/15/2024 15:58:26 COVID-19, mRNA, LNP-S, PF, 30 mcg/0.3 mL dose 1 completed Kathy Morgan [facility] 09/15/2024 15:58:26 COVID-19, mRNA, LNP-S, PF, 30 mcg/0.3 mL dose 1 completed Kathy Morgan [facility] 09/15/2024 15:58:26 COVID-19, mRNA, LNP-S, PF, 30 mcg/0.3 mL dose 1 completed [facility] 09/15/2024 15:58:26 Influenza, high-dose, trivalent, PF 9 completed Kathy ortega, [facility] 09/15/2024 15:58:26 Influenza, high-dose, trivalent, PF 8 completed Kathylars Morgan null, [facility] 09/15/2024 15:58:26 Influenza, high-dose, trivalent, PF 6 completed Kathylars Morgan null, [facility] 09/15/2024 15:58:26 Influenza, high-dose, trivalent, PF 7 completed Kathylars De Oliveirae null, [facility] 09/15/2024 15:58:26 Influenza, split virus, trivalent, preservative 3 completed Kathy ortega, [facility] 09/15/2024 15:58:26 Influenza, split virus, trivalent, PF 5 completed Kathy Morgan null, [facility] 09/15/2024 15:58:26 Pneumococcal conjugate PCV 13 6 completed Not Available [facility] 04/05/2025 16:14:56 pneumococcal polysaccharide PPV23 8 completed Not Available [facility] 04/05/2025 16:14:56 Tdap 2 completed Not Available [facility] 04/05/2025 16:14:56 zoster recombinant 2 completed Not Available [facility] 04/05/2025 16:14:56 zoster recombinant 2 completed Not Available [facility] 04/05/2025 16:14:56 Influenza, high-dose, quadrivalent, PF 3 completed Not Available [facility] 04/05/2025 16:14:56 Influenza, high-dose, trivalent, PF 4 completed Not Available [facility] 04/05/2025 16:14:56 Past Encounters Encounter ID Performer Location Encounter Start Date Encounter Closed Date Diagnosis/Indication Diagnosis SNOMED-CT Code Diagnosis ICD10 Code Diagnosis IMO Codes Diagnosis Note [id number] Kirill Noonan MD [facility] ([facility]) [address] [place] [address] 02/26/2023 10:07:41 02/26/2023 18:52:27 Benign paroxysmal positional vertigo 523803534 H81.10 likely BPPV. order provide for vestibular rehab with PT. F/u next week with PCP if not better. [id number] Maura Ivy DO [facility] ([facility]) [address] [place] [address] 05/14/2023 15:55:21 05/14/2023 17:38:50 Low back pain 737662216 M54.50 Acute on chronic. Worsening. With known lumbar intraverte bral disc disease. We will give another round of prednisone as this has shown some improvemen t in the recent past. 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 Is been progressiv loren worsening over the last several months. Last MRI showed nerve impingemen t in the lumbar spine 3 years ago. We will get an x-ray today and possibly MRI. Patient has seen Dr. Watt in the past and would like to follow-up with him. Will await imaging studies. Crohn's disease 98840092 K50.90 Continue care with gastroente rology. Patient is up-to-date on his colonoscop ies. No recent flare. Hyperlipidemia 36204634 E78.5 Patient has a history of this but has not been on statins Paroxysmal tachycardia 97756731 I47.9 Continue metoprolol . Supraventr icular tachycardia 2743738 I47.1 Paroxysmal . Well-contr olled lately. Continue metoprolol Lower urin cristobal tract symptoms due to benign prostatic hypertrophy 8409312749 9101 N40.1 Continue finasterid e. [id number] Maura Ivy DO [facility] ([facility]) [address] [place] [address] 12/03/2023 08:06:23 12/03/2023 11:54:38 Crohn's disease 60785608 K50.90 Reviewed most recent Colonoscop y report pt has brought with him from [place], counseled he is due to update this. Discussed treatment for Crohn's, symptoms aren't warranting chronic steroid tx, he has been on them in the past. Will refer to GI, not Dr. Thibodeaux, will go [facility] direction. F/u with me after seeing GI. Paroxysmal tachycardia 99722430 I47.9 Continue Metoprolol . stable Mixed hyperlipidemia 267 130929 E78.2 Continue Finasterid e, counseled on diet, exercise. Low back pain 065737184 M54.50 stable, continue current tx. [id number] Maura Ivy DO [facility] ([facility]) [address] [place] [address] 07/28/2024 11:50:17 07/28/2024 17:36:42 Transient cerebral ischemia 101554901 G45.9 Occurred 07/24/24, symptoms resolved in ER. After discussion pt will proceed with Neuro referral locally, agrees to see Dr. Markham. Echo today. MRI today, anxiety med prior. Carotid US already performed. Counseled pt on significan ce of taking a statin and Asa s/p TIA, to aid with CVA prevention . Pt to continue Asa and Atorvastat in at this time, consider alternativ e if there's an issue. Hyperglycemia 72940974 R 73.9 [id number] Maura Ivy DO [facility] ([facility]) [address] [place] [address] 09/15/2024 15:39:22 09/16/2024 10:45:36 Transient cerebral ischemia 373340691 G45.9 Occurred 07/24/24, symptoms resolved in ER. 4- Reviewed and discussed recent Echo, MRI, EEG. Continue following with Neuro and Cardio. Counseled on use and purpose of Plavix/ Aspirin/ Statin. Will start Plavix. Counseled on diagnosis, treatment options including medication s and possible side effects. [id number] Shakir Leonard MD [facility] ([facility]) [address] [place] [address] 10/05/2024 08:11:39 10/05/2024 09:22:18 Acute maxillary sinusitis 54914788 J01.00 f/u if new fever or any breathing problems worse than baseline [id number] Maura Ivy DO [facility] ([facility]) [address] [place] [address] 10/13/2024 08:28:41 10/15/2024 08:04:20 Acute sinusitis 62517263 J01.90 10/13/24- counseled change abx to Zpack, add steroid, daily antihistam ine. [id number] Maura Ivy DO [facility] ([facility]) [address] [place] [address] 04/05/2025 16:14:06 04/06/2025 10:43:10 Chronic sacroiliac joint pain 240718111 M53.3 G89.29 113248 I counseled pt on DX and treatment options. Pt desires to proceed with right SI Joint injection today. Performed as documented . Pt tolerated well. counseled on limiting activity the next 24 hrs. return if problems. Pain of hip region 87986 002 M25.551 928042 concern for severe degen arthritis. but possible impingemen t. will get xray. start nsaids. Mixed hyperlipidemia 267 664274 E78.2 Continue atorvastat in, repeat labs next appt. counseled on diet, exercise. Crohn's disease 51225225 K50.90 Reviewed most recent Colonoscop y report pt has brought with him from [facility], counseled he is due to update this. Discussed treatment for Crohn's, symptoms aren't warranting chronic steroid tx, he has been on them in the past. Will refer to GI, not Dr. Thibodeaux, will go [facility] direction. F/u with me after seeing GI. [id number] PIPER YODER [facility] ([facility]) [address] [place] [phone] 05/21/2025 09:53:40 05/21/2025 13:21:14 Dysuria 13141215 R30.0 29845 Discussed to take antibiotic as prescribed until completedU rine culture ordered - will notify of any resultsEdu cated patient on increasing PO fluids of water, decreasing caffeine (coffee) and sugary drinks. Discussed if developmen t of abdominal pain, flank pain, fever, vomiting, worsening symptoms return to walk-in, PCP or ED for re-evaluat ion. Return to clinic if any changes, any worsening, any concernsPa tient verbalized understand ing of plan. [id number] Maura Ivy DO [facility] ([facility]) [address] [place] [address] 09/14/2025 17:01:15 09/15/2025 12:28:09 Rib pain [id number] R07.89 [id number] I have independen tly reviewed and interprete d XR results, d/w patient. Dr. Young Ivy: XR left ribs with chest: no fracture, no acute process.Re viewed and discussed with pt. Explained sometimes the rib can be popped out of place or significan tly bruised, with significan t pain, we want to avoid binding, will treat with pain med. He hasn't taken pain medication often in the past, unsure what works for him. He is unsure if he has ever taken Tramadol. Will write Tramadol 50mg PRN. Counseled on diagnosis, treatment options including medication s and possible side effects. Ok to take Tylenol as well. Counseled on routine deep breathing, despite the pain, to help prevent any setting of Pneumonia. Health Concerns Section Related Observation LastModified by Organization Detai ls LastModified Time None Recorded Concern Status LastModified by Organization Details LastModified Time None Recorded Advance Directives Directive None Recorded Payers Insurance Date Sequence Insurance Name Policy Number Policy Das Covered Member ID Das Member ID Guarantor Name 09/14/2025 1 MEDICARE [place]: WPS Chinmay Hernandes [id number] 2 Chinmay Hernandes 09/14/2025 2 [employer] Chinmay Hernandes [id number] Chinmay Hernandes 09/14/2025 [employer] - [place] - PART A - [facility] (MEDICARE) Chinmay Hernandes [id number] 2 Chinmay Hernandes Notes Date Note Type Note Provider Name and Address Organization Details Recorded Time 10/05/2024 text/html Upper Respirator y SymptomsReported by Patient walk in patienthe has had a sinus headache for 2 weeks the his throat is sore, left ear pain, head congestion he ran a fever briefly Wednesday night but not since. that day or the day before he developed the sore throat and ear pain. Shakir Leonard MD [address] [place] [address], [phone], [facility] [place] [facility] 10/05/2024 08:38:48 10/13/2024 text/html ROS as noted in the HPI Pt presents for acute illness, cough/congestion He was seen in [place] on 10/05/24 and treated with Amoxicillin for acute maxillary sinusitis, has been taking this, doesn't think it's done much good for him. he c/o left ear pain, since prior to Thanksgiving, almost 2 weekshe also reports the left side of his throat is sore, especially with swallowing.his head feels full and has nasal congestionhe is not coughing any phlegm up, nor does he have any nasal drainagehe c/o sinus pressure and sinus HAhe continues on the abt and has 2-3 days left of it No recent steroid treatment. Had been taking daily antihistamine, stopped when he didn't think it was helping. Maura Ivy DO [address] [place] [address], [phone], [facility] [place] [facility] 10/13/2024 15:19:01 04/05/2025 text/html ROS as noted in the HPI Pt presents for recheck of chronic hip and back pain.He c/o right hip pain for a month and would like an injection for the painpain is dull ache, gets sharp and intense sitting or lying down for very long.hx of DDD L spine with MRI 2019 with multilevel lumbar disc herniation. He did PT and rest for this. no hx of any lumbar surgery. The patient denies any recent acute febrile illness, denies any recent cardiac Chest Pain, new or worsening SOB or new/worsening leg swelling. The patient denies any change in bowels or bladder. Pt denies any recent med changes, ER trips, or hospitalizations. Maura Ivy DO [address] [place] [address], [phone], [facility] [place] [facility] 04/05/2025 21:44:42 05/21/2025 text/html ROS as noted in the HPI walk in ptPt is having lower abdominal pain and increased urinary frequency for 1 month. Over the last 3-4 days has been having discomfort when urinating. DAYDAY AGUILAR, DOUGH CATCHER [address] [place], [address], [facility] [place] [facility], Raphael. 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 He denies any other pain or injury. Maura Ivy, DO [address] [place], [address], [facility] [place] [facility], LAllenLNadia. 09/14/2025 17:45:16
--- OUTSIDE RECORDS SUMMARY | 2025-10-03 22:12 | XMS_ITS | Continuity of Care Document ---
Author Organization [facility]IN [facility] Radha, LGaldino, [facility] ([facility]) Address [address] [place] [address] Care Team Providers Care Extrusion Engineer Name Role Phone MAURA SILVA Primary Care Provider Unavailabl e Assessment Encounter Date Assessment Date Assessment LastModified by Organization Details LastModified Time 09/14/2025 09/14/2025 Document scribed by Mark Booth Sr Community Manager. I was present during interview and exam. I have reviewed and agree with above documentation . Dr. Maura Silva. [email or web address] Not available 09/14/2025 17:27:56 Plan of Treatment Reminders Order Date Submit Date Provider Last Modified By Organization Details Last Modified Time Details Appointments None recorded. Lab None recorded. Referral None recorded. Procedures None recorded. Surgeries None recorded. Imaging XR, ribs, unilateral , w/ PA chest 2024 025 [facility] ([facility]), [address] [place], [address], 09:48:30 Medication Orders tramadol 50 mg tablet 2024 025 [facility], [address], [place], [address], 17:45:20 Patient TargetsNo targets recorded. Patient InstructionsNo instructions recorded. Reason for Referral None Reported. Results Created Date Observation Date Name Description Value Unit Range Abnormal Flag Note LastModifiedBy Organization Detail LastModifiedTime 09/16/20 25 09/14/2025 XR, ribs, unila teral , w/ PA chest No observ ation record ed. [facility] [address] [place], [address], 09/16/2025 13:40:06 Result Notes None recorded. Problems Name Problem SNOMED Code Status Onset Date Resolution Date Notes Provider Name and Address Organization Details Recorded Time Chronic ulcerativ e colitis 480742995 Active 2022 Chronic Ulcerative Colitis; 12/11/2022 7:30AM by Carline Chang, Office Visit; Promoted; acuity set as *; Not Available [facility] 3 03:13:37 Allergic rhinitis 86986143 Active 2022 Allergic Rhinitis; 12/11/2022 7:30AM by Carline Chang, Office Visit; Promoted; acuity set as *; Not Available [facility] 3 03:13:38 Cholecyst ectomy Active 2022 Cholecyste ctomy; 12/11/2022 7:30AM by Carline Chang, Office Visit; Promoted; acuity set as *; Not Available [facility] 3 03:13:42 Crohn's disease 25250672 Active 2022 Crohn's Disease; 12/11/2022 7:30AM by Carline Chang, Office Visit; Promoted; acuity set as *; CD (CROHN'S DISEASE) (Establish ed Diagnosis) ; Impression : Flair. Counseled on fiber supplement , probiotic. ; Recorded 12/11/2022 7:30AM by Carline Chang, Office Visit; Promoted; acuity set as *; Not Available [facility] 3 03:13:42 Colonosco py Active 2022 Colonoscop y; 09-08; 12/11/2022 7:30AM by Carline Chang, Office Visit; Promoted; acuity set as *; Not Available [facility] 3 03:13:42 Benign paroxysma l positiona l vertigo 998857851 Active 2022 Kirill Noonan MD [address] [place], [address] , [facility], L[facility]LAllenC. 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 3 16:50:28 Low back pain 611155980 Active 2022 Maura Silva, [address], [address] , [facility] 3 16:50:30 Paroxysma l tachycard ia 04223190 Active 2023 Mauraedmond Silva, [address], [address] , [facility] 4 08:52:16 Mixed hyperlipi demia 858077852 Active [address], [address] , [facility] 4 08:52:18 Transient cerebral ischemia 325292587 Active 2023 Mark ortega [facility] 4 13:10:21 Hyperglyc emia 94676597 Active 2023 Mark ortega [facility] 4 13:10:23 Chronic sacroilia c joint pain 186317119 Active 2024 [place] [address] , [facility] 5 17:21:41 Pain of hip region 52982355 Active 2024 [place]edmond [place] [address] , [facility] 5 17:21:43 Problem Notes None recorded. Procedures Surgical History Date Name Laterality Status Provider Name and Address Organization Details Recorded Time 04/05/20 25 Joint Inj Beta-elbow, wrist completed Maura Silva [address] [place] [address], [phone], [facility], LAllenLAllenCAllen 04/05/2025 21:36:04 Cholecystectomy completed Torie Kevin [facility] 10/05/2024 08:21:19 Imaging Results None recorded. Procedure Notes None recorded. Medical Equipment None Reported. Allergies Allergen ID Allergen Name Allergen Category Reaction Reaction Severity Criticality Documentation Date Start Date Code Code System Note Provider Name and Address Organization Details Recorded Time 50481 Substance with sulfonami de structure and antibacte rial mechanism of action (substanc e) medicatio n Not available Not available Not available 06/01/2023 74364 8003 SNOMED Comme nt: Recor ded 12/11 7:30A M by Dian green, Offic e Visit ; Promo leola; Signi roland ce: *; ; Not Available [facility] 3 02:25:34 Medications Name Sig Start Date [...] Available Not Available omeprazol e 12/03 completed 58920; Recorded 10/10/20 22 11:24AM by Mark Booth (Authori alysha through Maura Silva DO), Office Visit; Not Available Not Available Not Available baclofen up to 3 times a day as needed for pain and muscle spasm 12/03 completed Recorded 12/11/19 23 7:47AM by Maura Silva DO, Office Visit; Refill Quantity : 35; Tablet; Not Available Not Available Not Available metoprolo l succinate 12/03 completed 09381; Recorded 10/10/20 22 11:23AM by Mark Booth (i alysha through Maura Silva DO), Office Visit; Not Available Not Available [...] Updated DateTime 5 193.04 cm 26.6 kg/m2 86739.2 4 g 97 % 72 /min 18 /min 130/76 mm[Hg] Kathy Morgan [facility] 5 17:16:55 Social History Question Answer Notes LastModified by [employer] Images Details LastModified Time Tobacco Smoking Status Never Smoker Torie ortega [facility] 10/05/2024 08:21:00 What Was The Date Of Your Most Recent Tobacco Screening? 05/21/2025 [email or web address] Information not available 05/21/2025 Sex: Unknown Functional Status Question Answer Note LastModified by [employer] Images Details LastModified Time Do you use any illicit or recreational drugs? No [email or web address] Information not available 05/14/2023 Do you or have you ever used any other forms of tobacco or nicotine? No [email or web address] Information not available 05/14/2023 What is your level of alcohol consumption? None [email or web address] Information not available 05/14/2023 Mental Status None recorded. Family History Nothing Reported. Medical History No medical history recorded. Immunizations Vaccine Type Date Status Note Provider Nam e and Address Organization Details Recorded Time Influenza, split virus, trivalent, preservative 3 completed Kathy ortega [facility] 10/13/2024 08:47:38 Influenza, high-dose, quadrivalent, PF 1 completed Kathylars Morgan [facility] 09/15/2024 15:58:26 Influenza, high-dose, quadrivalent, PF [facility] 09/15/2024 15:58:26 COVID-19, mRNA, LNP-S, PF, 30 mcg/0.3 mL dose 1 [facility] 09/15/2024 15:58:26 COVID-19, mRNA, LNP-S, PF, 30 mcg/0.3 mL dose 1 [facility] 09/15/2024 15:58:26 COVID-19, mRNA, LNP-S, PF, 30 mcg/0.3 mL dose 1 [facility] 09/15/2024 15:58:26 Influenza, high-dose, trivalent, PF 9 completed Kathy Morgan [facility] 09/15/2024 15:58:26 Influenza, high-dose, trivalent, PF 8 completed Kathy Morgan [facility] 09/15/2024 15:58:26 Influenza, high-dose, trivalent, PF 6 completed Kathy Morgan [facility] 09/15/2024 15:58:26 Influenza, high-dose, trivalent, PF 7 completed Kathy Morgan [facility] 09/15/2024 15:58:26 Influenza, split virus, trivalent, preservative 3 completed Kathy ortega [facility] 09/15/2024 15:58:26 Influenza, split virus, trivalent, PF 5 completed Kathy ortega [facility] 09/15/2024 15:58:26 Pneumococcal conjugate PCV 13 6 completed Not Available [facility] 04/05/2025 16:14:56 pneumococcal polysaccharide PPV23 8 completed Not Available [facility] 04/05/2025 16:14:56 Tdap 2 completed Not Available [facility] 04/05/2025 16:14:56 zoster recombinant 2 completed Not Available [facility] 04/05/2025 16:14:56 zoster recombinant 2 completed Not Available [facility] 04/05/2025 16:14:56 Influenza, high-dose, quadrivalent, PF 3 completed Not Available [facility] 04/05/2025 16:14:56 Influenza, high-dose, trivalent, PF 4 completed Not Available [facility] 04/05/2025 16:14:56 Past Encounters Encounter ID Performer Location Encounter Start Date Encounter Closed Date Diagnosis/Indication Diagnosis SNOMED-CT Code Diagnosis ICD10 Code Diagnosis IMO Codes Diagnosis Note [id number] Maura Silva DO [facility] ([facility]) [address] [place] [address] 09/14/2025 17:01:15 09/15/2025 12:28:09 Rib pain [id number] R07.89 [id number] I have independen tly reviewed and interprete d XR results, d/w patient. Dr. Young Silva: XR left ribs with chest: no fracture, [...] by Organization Details LastModified Time None Recorded Payers Encounter Date Sequence Insurance Name Policy Number Policy Das Covered Member ID Das Member ID Guarantor Name 09/14/2025 1 [place]: W[employer] Chinmay Wynne Cecilio [id number] 2 Chinmay Hernandes 09/14/2025 2 [employer] Chinmay Wynne Cecilio [id number] Chinmay Sherrell Cecilio Notes Date Note Type Note Provider Name and Address Organization Details Recorded Time 09/14/2025 text/html ROS as noted in the HPI Pt presents for acute illness, injury/rib pain 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 He denies any other pain or injury. Maura Silva, DO [address] [place], [address], [facility] 09/14/2025 17:45:16
--- OUTSIDE RECORDS SUMMARY | 2025-10-03 22:12 | XMS_ITS | Patient Health Record ---
Author Organization [employer], [employer] Address [address] [place] [address] Care Team Providers Care Stock Or Delivery Clerk Name Role Phone Vaughn Silva Primary Care Provider CAROLINE Livingston Unavailable [phone] Jac Bustamante Unavailable [phone] Allergies Allergen (clinical drug ingredient) Drug/Non Drug Allergy documented on EMR Reaction Allergy Type Onset Date Status Information temporarily unavailable Imuran Unknown Drug Allergy Active Results Component Value Reference Range Notes Urinalysis, Routine Reviewed date:09/01/2025 01:24:12 PM Interpretation: Performing Lab: Notes/Report: Appearance pale yellow Glucose clear Bilirubin - Ketones - Specific [place] - Occult Blood 1.010 pH 1+ Urine Protein 6.5 Urobilinogen,Semi-Qn - Nitrite, Urine - WBC Esterase - Urinalysis Gross Exam - Reason For Referral No Information Medications Medication SIG (Take, Route, Frequency, Duration) Notes Start Date End Date Status Omeprazole 20 MG 1 capsule 1/2 to 1 h our before morning meal Orally Once a day 09/01/2025 Active Finasteride 5 MG 1 tablet Orally Once a day Active Acetaminophen 500 MG 1 capsule as needed Orally every 6 hrs Active Metoprolol Tartrate 25 MG 1 tablet with food Orally Twice a day Active Doxazosin Mesylate 4 MG 1 tablet Orally Once a day; Duration: 30 days 09/01/2025 10/30/2025 Active Levothyroxine Sodium 25 MCG 1 tablet in the morning on an empty stomach Orally Once a day 09/01/2025 Active prednisoLONE Acetate 0.12 % 1 drop into affected eye Ophthalmic Twice a day Active Social History Tobacco Use: Social History Observation Description Date Details (start date - stop date) Never Smoker NA - NA Tobacco Control (Standard) Question Answer Notes Tobacco use: Nonsmoker AUDIT-C (Standard) Question Answer Notes Did you have a drink containing alcohol in the p ast year? 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) Active confirmed Vital Signs Heart Rate 61 /min 09/01/2025 Blood pressure diastolic 80 mm Hg 09/01/2025 Height-cm 190.5 cm 09/01/2025 Weight-kg 97.52 kg 09/01/2025 Height 75 in 09/01/2025 Blood pressure systolic 131 mm Hg 09/01/2025 Weight 215 lbs 09/01/2025 BMI 26.87 kg/m2 09/01/2025 Procedures Procedure Date Ordered Date Performed Result Body Sit e Bladder Scan 09/01/2025 09/01/2025 N/A Encounters Encounter Location Date Provider Diagnosis [facility] [place], [facility] [address] [place] [address] 09/01/2025 Jac Bustamante BPH loc w urin obs/LUTS N40.1 ; Nocturia R35.1 and Peyronie disease N48.6 Assessments Encounter Date Diagnosis (ICD Code) Assessment Notes Treatment Notes Treatment Clinical Notes Section Notes 09/01/2025 BPH loc w urin obs/LUTS (ICD-10 - N40.1) 80-yo male with BPH/LUTs, nocturia and Peyronie's. For the patient's continued urinary symptoms on finasteride, I briefly discussed BPH surgical intervention options and informed him that I would need to perform a cystoscopy for further evaluation of his anatomy and determine which procedure he would best be a candidate for. After discussion, he elects to continue finasteride and trial doxazosin at this time. [facility] 4-6 weeks with IPSS and FR/PVR. RTC or call sooner with any concerns. Will schedule for in office cystoscopy, and cancel this if symptom improvement and no side effects.The patient voices understanding and agrees with the plan. All of his questions were answered to his satisfaction. 09/01/2025 Nocturia (ICD-10 - R35.1) 80-yo male with BPH/LUTs, nocturia and Peyronie's. For the patient's continued urinary symptoms on finasteride, I briefly discussed BPH surgical intervention options and informed him that I would need to perform a cystoscopy for further evaluation of his anatomy and determine which procedure he would best be a candidate for. After discussion, he elects to continue finasteride and trial doxazosin at this time. I will [facility] RTC in 4-6 weeks with IPSS and FR/PVR. RTC or call sooner with any concerns. Will schedule for in office cystoscopy, and cancel this if symptom improvement and no side effects.The patient voices understanding and agrees with the plan. All of his questions were answered to his satisfaction. 09/01/2025 Peyronie disease (ICD-10 - N48.6) 80-yo male with BPH/LUTs, nocturia and Peyronie's. For the patient's continued urinary symptoms on finasteride, I briefly discussed BPH surgical intervention options and informed him that I would need to perform a cystoscopy for further evaluation of his anatomy and determine which procedure he would best be a candidate for. After discussion, he elects to continue finasteride and trial doxazosin at this time. I will [facility] RTC in 4-6 weeks with IPSS and FR/PVR. RTC or call sooner with any concerns. Will schedule for in office cystoscopy, and cancel this if symptom improvement and no side effects.The patient voices understanding and agrees with the plan. All of his questions were answered to his satisfaction. Plan Of Treatment Pending Test Test Name Order Date PSA-Diagnostic 06/10/2024 Next Appt Details Provider Name:Jac Bustamante, 10/07/2025 11:20:00 AM, [address] [place], [address], Provider Name:CAROLINE Longoria, 10/25/2025 10:00:00 AM, [address] [place], [address], Insurance Providers Payer Name Payer Address Payer Phone Subscriber Number Group Number Insured Name Patient Relationship to Insured Coverage Start Date Coverage End Date [place] [address] JOSSELINE [place]QUEDA [id number] [phone] [id number] Chinmay Rangel Self - patient is the insured [facility] Insurance [address] [address] [place] [id number] Chinmay Rangel Self - patient is the insured Medical (General) History Medical History History ICD Code hemorrhoids hypertension back trouble migraine headaches crohn's disease arthritis Surgical History Surgery Date(Month/Year) laminectomy c-2-7 cholecystectomy Hospitalization History Reason Date(Month/Year) neck surgery 2019 crohn's episode crohn's episode
--- OUTSIDE RECORDS SUMMARY | 2025-10-03 22:13 | XMS_ITS | Data Portability ---
Author Organization [facility], [facility] Address [address] [place] [address] Assessment Encounter Date Assessment Date Assessment LastModified by Organization Details LastModified Time 02/27/2019 02/27/2019 Radiographs: 3 views of the left foot show normal bony anatomy Impression: Left foot pain with radiating left leg pain to level of hip and lateral foot and leg numbness. Some components consistent with plantar fasciitis. Plan: He is been dealing with left heel pain for 2 years. 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 He has had injections without relief and an in office surgical procedure presumably a partial plantar fascial release. This did not help either. He has numbness along the plantar lateral foot and lateral leg. He has radiating pain up to the hip. It bothers him more when he is in a car driving. It sounds like there may be significant neurologic component here. I have referred him to one of the physiatrists for further evaluation. Follow-up with me as needed [email or web address] Not available 02/28/2019 11:52:33 Plan of Treatment Reminders Order Date Submit Date Provider Last Modified By Organization Details Last Modified Time Details Appointments None recorded. Lab None recorded. Referral electromyog wyatt/nerve conduction referral - EMG/NCS left lower extremity, eval for radiculopat hy vs. peripheral neuropathy or peripheral nerve entrapment 2018 019 [email or web address] Not available 9 12:02:37 radiologist referral - Lumbar MRI w/o contrast 2018 019 [email or web address] Not available 9 11:55:31 Procedures epidural steroid injection, lumbar transforami nal (PROC) - Left L5-S1 TF KOBI ( CPT 30359) 2018 019 [email or web address] [facility], [address], [address], [place], [address], 9 18:28:08 Surgeries None recorded. Imaging MRI, lumbar spine, w/o contrast 2018 019 RAKESH [facility], [address], [place], [address], 9 17:14:15 XR, lumbosacral spine, 4 or more view 2018 019 [facility], [address], [place], [address], 9 12:31:33 XR, foot, 3 or more view 2018 019 [email or web address] 2 [facility], [address], [place], [address], 9 13:10:44 Medication Orders None recorded. Patient TargetsNo targets recorded. Patient Instructions Encounter Date Encounter Id Patient Instructions Last Modified By Organization Details Last Modified Time 03/09/2019 [id number] back care and preventing injuries: care instructions Not available 03/09/2019 11:50:15 A healthy lifestyle: care instructions Not available 03/09/2019 11:50:15 learning about lumbar epidural steroid injections Not available 03/09/2019 11:50:15 04/08/2019 [id number] back care and preventing injuries: care instructions Not available 04/08/2019 11:42:32 A healthy lifestyle: care instructions Not available 04/08/2019 11:42:32 learning about lumbar epidural steroid injections Not available 04/08/2019 11:42:32 Reason for Referral Electromyogram/nerve Conduct ion Referral for Lumbosacral radiculopathy EMG/NCS left lower extremity, eval for radiculopathy vs. peripheral neuropathy or peripheral nerve entrapment Referring Physician: Uzair Eduardo, [facility] Encounter Date: 03/09/2019 Radiologist Referral for Lum bosacral radiculopathy MRI L-SPINE W/O Lumbar MRI w/o contrast Referring Physician: Uzair Eduardo, [facility] Encounter Date: 03/09/2019 Results Created Date Observation Date Name Description Value Unit Range Abnormal Flag Note LastModifiedBy Organization Detail LastModifiedTime 03/17/20 19 03/17/2019 MRI, lumba r spine , w/o contr ast No observ ation record ed. [facility] [address], [place], [id number], 03/18/2019 08:59:17 Result Notes None recorded. Procedures Surgical History Date Name Laterality Status Provider Name and Address Organization Details Recorded Time cholecystectomy [facility]/27/[facility] 11:39:31 procedure on foot completed [facility] 02/27/2019 11:39:38 Imaging Results None recorded. Procedure Notes None recorded. Medical Equipment None Reported. Allergies Allergen ID Allergen Name Allergen Category Reaction Reaction Severity Criticality Documentation Date Start Date Code Code System Note Provider Name and Address Organization Details Recorded Time 482751 Imuran medicatio n Not available Not available Not available 03/09/201908563 9 RxNorm [facility] 9 11:23:31 Medications Name Sig Start Date Stop Date Status Note LastModified by Organization Details LastModified Time omeprazole 20 mg capsule,delay ed release Take 1 capsule every day by oral route. active Not Available Not Available No t Available Vitamin D2 1,250 mcg (50,000 unit) capsule Take 1 capsule every week by oral route. active Not Available Not Available No t Available finasteride 5 mg tablet Take 1 tablet every day by oral route. active Not Available Not Available No t Available Vitals Date Recorded Body height Body mass index (BMI) Body weight Provider Name and Address Organization Details Last Updated DateTime 02/27/2019 193.04 cm 25 kg/m2 74642.44 g [facility] 02/27/2019 11:45:13 Date Recorded Body height Body mass index (BMI) Body weight Provider Name and Address Organization Details Last Updated DateTime 03/09/2019 193.04 cm 25 kg/m2 91333.44 josephine [facility] 03/09/2019 11:23:13 Date Recorded Systolic And Diastolic Provider Name and Address Organization Details Last Updated DateTime 03/09/2019 120/80 mm[Hg] [facility] 03/09/2019 11:54:19 Date Recorded Body height Body mass index (BMI) Body weight Provider Name and Address Organization Details Last Updated DateTime 04/08/2019 193.04 cm 25 kg/m2 88967.44 josephine [facility] 04/08/2019 11:43:37 Social History Question Answer Notes LastModified by Organizat ion Details LastModified Time Tobacco Smoking Status Never Smoker [facility] 02/27/2019 11:39:09 Do You Have An Advance Directive? Yes Information not available 02/27/2019 How Much Tobacco Do You Chew? None Information not available 03/09/2019 Which Illicit Or Recreational Drugs Have You Used? None Information not available 03/09/2019 Which Of Your Hands Is Dominant? Right Information not available 02/27/2019 What Was The Date Of Your Most Recent Tobacco Screening? 04/08/2019 Information not available 05/28/2019 How Much Tobacco Do You Smoke? No Information not available 03/09/2019 Sex: Unknown Functional Status Question Answer Note LastModified by Organization D etails LastModified Time What is your level of alcohol consumption? None Information not available 02/27/2019 Are you currently employed? No Information not available 02/27/2019 Mental Status None recorded. Family History Relationship Description Onset Age of this Age Resolved Age Notes LastModified by Organization Details LastModified Time Father Arthritis Not avai lable 02/27/2019 11:38:49 Father Heart disease Not available 11:38:59 Mother Arthritis Not avai lable 02/27/2019 11:38:49 Mother Heart disease Not available 11:38:59 Medical History Condition Response Gout N Heart arrhythmia N MRSA N Bladder problems N Gastrointestinal Disease Y Vision or Eye Problems N Cancer N Polio N Stroke/TIA N DVT/blood clots N Kidney Disease N Anxiety N Diabetes Mellitus N Bleeding Disorder N Tuberculosis N AIDS/HIV N Asthma N defects N Pulmonary Embolism N Lung Disease N Pacemaker N Vascular Disease N Hepatitis A, B or C N Peripheral Neuropathy N Alcohol Overuse/Alcohol Abuse N High Cholesterol N Liver Disease N Osteoarthritis Y Cardiac stents N Thyroid Problems N Anemia N Mental Illness N Stomach Ulcers N Epilepsy/Seizures N Heart Disease N Hypertension N Osteoporosis N Immunizations Vaccine Type Date Status Note Provider Nam e and Address Organization Details Recorded Time Pneumococcal conjugate PCV 13 8 completed [facility] 03/09/2019 11:54:37 Past Encounters Encounter ID Performer Location Encounter Start Date Encounter Closed Date Diagnosis/Indication Diagnosis SNOMED-CT Code Diagnosis ICD10 Code Diagnosis IMO Codes Diagnosis Note [id number] Shawn Rosales [address] [place] [id number] 02/27/2019 10:59:34 02/27/2019 12:11:24 Pain in left foot 9987854126 90979 M79.672 Plantar fa sciitis of left foot 0623160299 5185266 M72.2 Pain in le ft lower limb 170268625 M79.605 [id number] Shawn Aguero [address] [place] [place] [address] [id number] 03/09/2019 11:12:26 03/10/2019 15:25:57 Low back pain 859411047 M54.5 Mr. Hernandes presents for evaluation of several years low back pain and numbness and pain in his left foot. He has previously been treated for plantar fasciitis in the left foot. He has tried physical therapy, chiropract ic care and steroid injections in his left foot without sustained relief. On my review of his lumbar x-rays taken at [facility] on 03/09/2019 there is loss of the normal lumbar lordosis, mild disc height loss at L5-S1. Degenerati on of lumbosacral intervertebral disc 12319136 M51.37 I educated the patient on conservati ve treatment options including physical therapy, home exercise program, healthy diet and lifestyle, acupunctur e, massage, chiropract ic care, pharmacoth erapy and injections . I encouraged the patient to continue with a home exercise program previously taught by physical therapy. Lumbosacra l radiculopathy 7074217 M54.17 I would recommend electrodia gnostic examinatio n of the lower extremitie s to further elucidate pathology and evaluate for a radiculopa thy versus peripheral nerve entrapment versus peripheral neuropathy . Given the severity of the patient's pain and functional limitation and no relief or inability to tolerate conservati ve measures including completing a six-week course of physical therapy within the last 6 months, home exercises, pharmacoth erapy and in preparatio n for interventi ons I would recommend advanced imaging of the lumbar spine with an MRI. I will follow-up with them after the MRI to reassess their progress. Plantar fa sciitis of left foot 0457847439 6717725 M72.2 He has failed conservati ve treatments for plantar fasciitis, I briefly educated him that we could consider a regenerati ve injection of amniotic membrane and umbilical cord to the area and he will contemplat e this option. There are some clinical studies that show this provides better relief than steroid injections and PRP. [id number] Uzair Eduardo M.D. [facility] [address] [place] [id number] 03/17/2019 13:17:23 03/17/2019 13:49:55 Lumbar radiculopathy 506936445 M54.16 [id number] Uzair Eduardo M.D. [facility] [address] [place] [address] [id number] 03/17/2019 15:05:39 03/20/2019 17:30:50 Lumbar radiculopathy 674121611 M54.16 Given the severity of the patient's pain and functional limitation and no relief or inability to tolerate conservati ve measures, I will proceed with a left L5-S1 transforam inal epidural injection for diagnostic and therapeuti c purposes. I discussed the risks of this procedure at length with the patient, including bleeding, infection, new pain, worsened pain, numbness/t ingling, weakness, paralysis, stroke, and . Benefits and alternativ es were also discussed, all questions were answered, and the patient wishes to proceed. I will plan to follow-up with the patient after this procedure to reassess their progress. [id number] Uzair Eduardo M.D. [facility] [address] [place] [address] 04/08/2019 11:24:46 04/08/2019 12:32:11 Low back pain 397825967 M54.5 Mr. Hernandes presents for follow-up evaluation of several years low back pain and numbness and pain in his left foot. He is here to review progress after recent procedure. On my review of his lumbar MRI done at [facility] on 03/17/19 there are diffuse disc bulges and facet arthropath y throughout the lumbar spine with findings most significan t at L4-5 and L5-S1 where at L5-S1 there is severe left neuroforam inal narrowing. On my review of his electrodia gnostic study done at [facility] on 03/17/2019 this was normal with no evidence of a peripheral nerve entrapment or left lumbar radiculopa thy. Plantar fa sciitis of left foot 7329872409 1980892 M72.2 Unfortunat loren he has failed conservati ve treatments for plantar fasciitis. Degenerati on of lumbosacral intervertebral disc 56568666 M51.37 I again educated the patient on conservati ve treatment options including physical therapy, home exercise program, healthy diet and lifestyle, acupunctur e, massage, chiropract ic care, pharmacoth erapy and injections . I encouraged the patient to continue with a home exercise program previously taught by physical therapy. Lumbosacra l radiculopathy 1030595 M54.17 He is s/p a left L5-S1 transforam inal epidural injection on 03/26/19 with good transient relief. This procedure could be repeated as needed. I educated him on the judicious use of steroid injections . He is not interested in a surgical opinion or another injection at this point. We briefly discussed spinal cord stimulatio n. I will follow-up with him as needed. 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 For location, patient reportsleft,plantar, andlateral. For quality, patient reportsthrobbing,constant, andnot changing. For severity, patient reportsmoderate. For duration, patient reports6 months. For timing, patient reportscannot identify. For context, patient reportscannot identify. For alleviating factors, patient reportsnothing helps. For aggravating factors, patient reportssittingandwalking. For previous surgery, patient reportssurgical procedure: in office 'plantar fascia aurgery' by munira: 06/21. For prior imaging, patient reportsx ray. For previous injections, patient reportsdid not help. For previous pt, patient reportsdid not help. For work related, patient reportsno. Ji Reid M.D. [address], [place], [address], [facility] 02/28/2019 11:52:51 9 text/htm l PM&R SpineReported by PatientHPIFor associated symptoms, patient reportsnumbness. For duration, patient reports__ years. For frequency, patient reportsconstantly. For severity, patient reportspain level 6/10. For location, patient reportslower back,neck,both sides, andleft leg. For quality, patient reportsaching,stabbing, andnumb. For timing, patient reportscannot identify. For context, patient reportscannot identify. For aggravating factors, patient reportscannot identify. For alleviating factors, patient reportsnothing helps. For physical therapy, patient reportsdates of treatment: 2019. For clinical manager home care, patient reportsdates of treatment: 2018andhelped somewhat. For acupuncture, patient reportsnone. For oral or intra-muscular steroid treatments, patient reportsdid not help. For pain program/clinic, patient reportsnone. For spine injections, patient reportsnone. For spine surgery, patient reportsnone. Uzair Eduardo M.D. [address] [place], [address], [facility] 03/10/2019 10:41:21 9 text/htm l PM&R SpineReported by PatientHPIFor associated symptoms, patient reportsnumbness. For duration, patient reports__ years. For frequency, patient reportsconstantly. For severity, patient reportspain level 6/10. For location, patient reportslower back,neck,both sides, andleft leg. For quality, patient reportsaching,stabbing, andnumb. For timing, patient reportscannot identify. For context, patient reportscannot identify. For aggravating factors, patient reportscannot identify. For alleviating factors, patient reportsnothing helps. For physical therapy, patient reportsdates of treatment: 2019. For clinical manager home care, patient reportsdates of treatment: 2018andhelped somewhat. For acupuncture, patient reportsnone. For oral or intra-muscular steroid treatments, patient reportsdid not help. For pain program/clinic, patient reportsnone. For spine injections, patient reportsnone. For spine surgery, patient reportsnone. Uzair Eduardo M.D. [address] [place], [address], [facility] 04/08/2019 11:52:51
--- NOTE | 2025-10-03 23:10 | XRR_ITS ---
PROCEDURE INFORMATION: Exam: XR Chest Exam date and time: 10/03/2025 11:11 PM Age: 80 years old Clinical indication: Left-sided; Prior surgery; Surgery date: 6+ months; Surgery type: Gb; C/O left sided chest pain; Additional info: Cp TECHNIQUE: Imaging protocol: Radiologic exam of the chest. Views: 1 view. COMPARISON: CR XR ribs LT mn 3V w CXR1V [id number] 09/14/2025 4:19 PM FINDINGS: Lungs: Unremarkable. No consolidation. Pleural spaces: Unremarkable. No pleural effusion. No pneumothorax. Heart/Mediastinum: Unremarkable. No cardiomegaly. Bones/joints: Unremarkable. XR/XR chest 1V portable [id number] IMPRESSION: No acute findings.
--- NOTE | 2025-10-03 23:10 | ECG_ITS ---
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 [email or web address]
[2025-10-03 23:40] LABS: Hematocrit 42.3 % (37-53); Hemoglobin 14.50 g/dL (11.27-16.99); Mean Corpuscular HGB Conc 34.3 g/dL (30-55); Mean Corpuscular Hemoglobin 30.3 pg (27-33); Mean Corpuscular Volume 88.5 fl (82-101); Nucleated Red Blood Cells % 0 %; Platelet Count 345 10^3/cmm (157-399); Red Blood Count 4.78 10^6/uL (3.85-5.65); White Blood Count 8.67 10^3/uL (3.29-11.43)
--- NOTE | 2025-10-03 23:47 | ED_ITS ---
HPI - Chest Pain 2 General: Chief Complaint: Chest Pain Stated Complaint: Chest Pains Time Seen by Provider: 10/03/25 23:09 History of Present Illness: Patient is a 80-year-old male who presents to the emergency department with complaints of intermittent left-sided chest pain. He reports experiencing sharp pain on the left side of his chest while sitting in a recliner. The pain was described as 'real sharp' and would last for approximately 1-2 minutes before resolving. He experienced this pain approximately 4-5 times, which prompted him to seek medical attention. The patient denies associated shortness of breath with these episodes, though he reports having chronic shortness of breath for some time. He has had a recent angiogram performed by Dr. Mayfield in early 2023 (approximately 11 months ago), not requiring stent placement. The patient was scheduled for a follow-up appointment with Dr. Mayfield this coming Saturday, but reports that his appointments have been frequently rescheduled. His primary care physician is Dr. Silva. Related Data Home Medications ?Medication ?Instructions ?Recorded ?Confirmed acetaminophen 650 mg 1,300 mg PO Q12H PRN Pain 01/29/25 tablet,extended release (Tylenol Arthritis Pain) finasteride 5 mg tablet 5 mg PO DAILY 11/22/2001/29 omeprazole 20 mg capsule,delayed 20 mg PO QAM 11/22/20 01/29/25 release cholecalciferol (vitamin D3) 50 50 mcg PO DAILY 01/29/25 mcg (2,000 unit) tablet (Vitamin D3) lactobacillus combination no.4 3 3,000 mmu cells PO BI D 07/24/24 01/29/25 billion cell capsule (Probiotic) aspirin 81 mg tablet,delayed 81 mg PO DAILY 08/05/24 0 01/29/25 release Previous Rx's ?Medication ?Instructions ?Recorded metoprolol succinate 25 mg 12.5 mg (1/2 x 25 mg) PO DA ANISH #35 09/01/24 tablet,extended release 24 hr tabs levothyroxine 25 mcg tablet 25 mcg PO DAILY #90 tabs 0 12/08/24 Allergies Allergy/AdvReac Type Severity Reaction Status Date / Time lisinopril Allergy Intermediate ADR-Headach Verified 11/17/24 01:11 e azathioprine (From Imuran) Allergy pancreatiti Verified 11/17/24 01:11 s metronidazole (From Flagyl) Allergy Unknown Verified 11/17/24 01:11 isosorbide AdvReac Severe headache Verified 11/17/24 01:11 PFSH ED 2 PFSH: Medical History Vitamin D deficiency Hx of Crohn's disease Osteopenia GERD (gastroesophageal reflux disease) Surgical History History of cholecystectomy History of neck surgery Family History Father CAD (coronary artery disease) Dementia Stroke Mother CAD (coronary artery disease) Family/Other Cancer Denies family history of Diabetes Clotting disorder Chronic kidney disease (CKD) Suicide Anesthesia complication Bleeding disorder Lung disease Social History Smoking and tobacco/nicotine status: never used tobacco/nicotine Alcohol intake: never Substance/Drug Use: never Physical Exam 2 Const: COMMON NORMALS: no acute distress GENERAL APPEARANCE: cooperative; not ill appearing and not frail appearing HENMT: COMMON NORMALS: normocephalic, atraumatic and Normal external nose present HEAD & SCALP: normocephalic and atraumatic FACE & SINUS: normal facial exam and face symmetric NOSE: Normal external nose present Eye: COMMON NORMALS: Equal, round and reactive pupils present and EOMs intact bilaterally PUPIL: Yes Equal, round and reactive pupils present Neck/C-Spine: GENERAL: Yes trachea midline Chest: CHEST: Yes Symmetrical chest wall rise Resp: COMMON NORMALS: normal respiratory effort, No retractions, No use of accessory muscles and clear to auscultation bilaterally AUSCULTATION: clear to auscultation bilaterally Cardio: COMMON NORMALS: regular rate and regular rhythm RATE: regular rate RHYTHM: regular rhythm GI: COMMON NORMALS: Normal to inspection, nondistended, normoactive bowel sounds present Extremity: COMMON NORMALS: no pedal edema Neuro: [place] COMA SCALE: document GCS findings [place] coma scale eye opening: Spontaneous [place] coma scale verbal response: Orientated [place] coma scale motor response: Obey commands [place] coma scale total score: 15 S ENSORY EXAM: Yes extremities (intact) Psych: COMMON NORMALS: speech normal SPEECH: Yes normal speech Skin: COMMON NORMALS: no rashes or lesions noted GENERAL SKIN EXAM: no rashes or lesions noted Course 2 Vital Signs: Vital signs: Vital Signs Temperature 97.4 F L 10/03/25 22:05 Pulse Rate 57 L 10/04/25 03:07 Respiratory Rate 18 10/03/25 22:05 Blood Pressure 145/70 10/04/25 03:07 Pulse Oximetry 94 10/04/25 03:07 Oxygen Delivery Me thod Room Air 10/04/25 00:21 MDM - Chest Pain Medical Decision Making 80-year-old male patient. No history of coronary artery disease. He does have a left bundle branch block which appears stable on EKG. Resolved chest pain at this point, which is atypical. Initially hypertensive, vitals are normal at this point. Chest x-ray is not acute. CBC and BMP are not remarkable. His Delta troponin is negative 0.2. His BNP is normal at 54. He wishes to go home. He is stable for discharge. Outpatient follow up. 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 Lab Data 10/03/25 23:30 10/03/25 23:30 Radiology Impressions Chest X-Ray 10/03/25 23:10 IMPRESSION: No acute findings. Laboratory Results WBC 8.67 10^3/uL (3.29-11.43) 10/03/25: RBC 4.78 10^6/uL (3.85-5.65) 10/03/25 23:30 Hgb 14.50 g/dL (11.27-16.99) 10/03/25 23: Hct 42.3 % (37-53) 10/03/25 23:30 MCV 88.5 fl (82-101) 10/03/25 23:30 MCH 30.3 pg (27-33) 10/03/25 23: MCHC 34.3 g/dL (30-55) 10/03/25 23: RDW 12.3 % (12.1-15.1) 10/03/25 23:30 Plt Count 345 10^3/cmm (157-399) 10/03/25 23: MPV 9.2 fL (7.4-10.4) 10/03/25 23: Neut % (Auto) 47.4 % 10/03/25 23:30 Lymph % (Auto) 33.3 % 10/03/25 23:30 [place] % (Auto) 10.0 % 10/03/25 23: Eos % (Auto) 7.6 % 10/03/25 23: Baso % (Auto) 1.2 % 10/03/25 23: Neut # (Auto) 4.11 10^3/uL (1.8-7.7) 10/03/25 23: Lymph # (Auto) 2.9 10^3/uL (0.8-4.8) 10/03/25 23: [place] # (Auto) 0.9 10^3/uL (0.2-0.9) 10/03/25 23: Eos # (Auto) 0.7 10^3/uL (0.0-0.8) 10/03/25 23: Baso # (Auto) 0.1 10^3/uL (0.0-0.1) 10/03/25 23: Nucleated RBC % (auto) 0 % 10/03/25 23: Nucleated RBCs # 0.0 /100WBC 10/03/25 23:30 Sodium 138 mmol/L (136-145) 10/03/25 23: Potassium 4.3 mmol/L (3.5-5.1) 10/03/25 23: Chloride 103 mmol/L (98-107) 10/03/25 23: Carbon Dioxide 23 mmol/L (22-29) 10/03/25 23: Anion Gap 16.3 (5-19) 10/03/25 23:30 BUN 21 mg/dL (8-23) 10/03/25 23:30 Creatinine 1.2 mg/dL (0.7-1.2) 10/03/25 23:30 GFR Calculation Not Reportable 10/03/25 23: Glucose 127 mg/dL (65-115) H 10/03/25 23: Calculated Osmolality 291 mOsm/kg (285-295) 10/03/25 23:30 Calcium 9.7 mg/dL (8.5-10.5) 10/03/25 23: Total Bilirubin 0.2 mg/dL (0.15-1.2) 10/03/25 23:30 AST 21 U/L (0-40) 10/03/25 23:30 ALT 19 U/L (0-41) 10/03/25 23:30 Alkaline Phosphatase 72 U/L (40-130) 10/03/25 23:30 Troponin T Baseline 10 ng/L (0-15) 10/03/25 23:30 Troponin T 120 Minute 9.79 ng/L (0-15) 10/04/25 01:10 Delta Troponin T -0.21 ABS# (0-10) L 10/04/25 01:10 NT-Pro-B Natriuret Pep 54 pg/mL (0-450) 10/03/25 23:30 Total Protein 7.0 g/dL (6.6-8.7) 10/03/25 23:30 Albumin 4.3 g/dL (3.5-5.2) 10/03/25 23:30 Globulin 2.7 g/dL (1.3-4.6) 10/03/25 23:30 All radiology interpretation(s) finalized by discharge EKG Data EKG 1: Interpretation: EKG time 220 Read 2210 sinus bradycardia 60 LBBB [address] changes Discharge Plan Discharge Patient Disposition: Home Clinical Impression: Chest pain Condition: Stable Prescriptions: No Action finasteride 5 mg tablet 5 mg PO DAILY acetaminophen [Tylenol Arthritis Pain] 650 mg tablet extended release 1,300 mg PO Q12H PRN (Reason: Pain) omeprazole 20 mg capsule,delayed release(DR/EC) 20 mg PO QAM aspirin 81 mg tablet,delayed release (DR/EC) 81 mg PO DAILY metoprolol succinate 25 mg tablet extended release 24 hr 12.5 mg PO DAILY Qty: 35 3RF levothyroxine 25 mcg tablet 25 mcg PO DAILY Qty: 90 3RF Vitamin D3 50 mcg (2,000 unit) Tablet 50 mcg PO DAILY Probiotic 3 billion cell Capsule 3,000 mmu cells PO BID Rx Instructions: administer with a meal Discharge Orders: Discharge ED (Routine); Ordered 10/04/25 Ordered By: Joel Bowling Referrals: Vaughn Silva DO [Primary Care Provider, [facility]] - 4-7 days Patient Instructions: Chest Pain (ED), Opioid Safety, Pain Management, Patient Portal & [place] Instructions Activity Restrictions/Additional Instructions: See your framing and hanging on Saturday as scheduled. Return to the ER for repeated episodes of chest pain, development of shortness of breath, fever, any other concerning symptoms. 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
[2025-10-03 23:48] VITALS: PULSE 69; O2SAT 93
[2025-10-04 00:05] LABS: Troponin(5th) Baseline 10 ng/L (0-15)
[2025-10-04 00:13] LABS: Alanine Aminotransferase 19 U/L (0-41); Albumin Level 4.3 g/dL (3.5-5.2); Alkaline Phosphatase 72 U/L (40-130); Anion Gap 16.3 (5-19); Aspartate Amino Transferase 21 U/L (0-40); Blood Urea Nitrogen 21 mg/dL (8-23); Calcium 9.7 mg/dL (8.5-10.5); Carbon Dioxide 23 mmol/L (22-29); Chloride 103 mmol/L (98-107); Globulin 2.7 g/dL (1.3-4.6); Glucose 127 mg/dL (65-115); NT Pro B Type Natriuretic Pept 54 pg/mL (0-450); Osmolality Calculated 291 mOsm/kg (285-295); Potassium 4.3 mmol/L (3.5-5.1); Sodium 138 mmol/L (136-145); Total Protein 7.0 g/dL (6.6-8.7)
[2025-10-04 00:21] VITALS: BP 133/79; PULSE 60; O2SAT 92
[2025-10-04 00:54] VITALS: BP 135/75; PULSE 60; O2SAT 93
[2025-10-04 01:14] VITALS: BP 132/70; PULSE 58; O2SAT 95
[2025-10-04 01:32] VITALS: BP 124/72; PULSE 57; O2SAT 94
[2025-10-04 01:44] LABS: Troponin 5 2HR 9.79 ng/L (0-15)
[2025-10-04 01:45] LABS: Troponin 5 2HR Delta -0.21 ABS# (0-10)
[2025-10-04 03:07] VITALS: BP 145/70; PULSE 57; O2SAT 94
== END 2025-10-04 03:24 | disposition home or self-care (01) ==
PROVIDERS: Emergency Provider Emergency Medicine; PCP Electrodiagnostic Medicine
DX: R07.9 Chest pain, unspecified (principal); Z79.82 Long term (current) use of aspirin
CPT/HCPCS: 71045; 80053; 83880; 84484; 85025; 93005; 99285

== ENCOUNTER → 2025-10-06 11:18 | Outpatient (BNVA) | payer OTHER, SELFPAY | PROVIDERS: PCP Electrodiagnostic Medicine; Visit Provider Internal Medicine Cardiovascular Disease | DX: R07.9 Chest pain, unspecified (principal); I25.10 Atherosclerotic heart disease of native coronary artery without angina pectoris; R53.83 Other fatigue; I10 Essential (primary) hypertension; E78.5 Hyperlipidemia, unspecified; I44.7 Left bundle-branch block, unspecified; R00.1 Bradycardia, unspecified | CPT/HCPCS: 99214 ==